=== PATIENT | male | born 1975 | race Caucasian/White ===

== ENCOUNTER 2017-11-05 21:21 | Emergency (ER) | payer OTHER, SELFPAY ==
[2017-11-05 21:22] VITALS: BP 164/102; PULSE 104; RESP 18; TEMP 36.5; O2SAT 99; BMI 34.2
--- NOTE | 2017-11-05 21:36 | CT_ITS ---
STUDY: CT ABDOMEN AND PELVIS WITH CONTRAST REASON FOR EXAM: Male, 42 years old. Right lower quadrant pain RADIATION DOSAGE (If Supplied By Facility): CTDIvol = ( 16.85 ) mGy, DLP = ( 1318.49 ) mGycm TECHNIQUE: Transaxial images were obtained from the dome of the diaphragm to the symphysis pubis without oral contrast. 100ML ml of Isovue 300 contrast was administered. Sagittal and coronal images were reconstructed. Individualized dose optimization techniques were used for this CT. COMPARISON: None. FINDINGS: The visualized lung bases are unremarkable. The visualized portions of the heart are within normal limits. Normal liver. Contracted gallbladder. No significant dilatation of the extrahepatic biliary system. Normal spleen. Normal pancreas. Normal bilateral adrenal glands. Normal right kidney. Normal left kidney. Small hiatal hernia. Normal small intestine. Normal colon. The appendix is visualized and appears normal. Normal abdominal aorta. Normal inferior vena cava. Normal retroperitoneum. Nonspecific mesenteric nodes up to 1.2 cm. Normal urinary bladder. Small fatty umbilical hernia of the abdominal wall. Normal osseous structures. CT/Abdomen/Pelvis WITH Contrast IMPRESSION: Normal appendix. Nonspecific mesenteric nodes up to 1.2 cm. Small hiatal hernia. Electronically Signed: Wes Varma DO at 23:51 EDT Tel [phone], Service support ,
--- NOTE | 2017-11-05 21:45 | ED.DCSUM_ITS ---
- ER Visit Summary Date of Service: 11/05/17 Chief Complaint: Abdominal pain History of Present Illness: The patient is a [address] Mcgregor. He reports he has right lower quadrant abdominal pain began yesterday and is gradually gotten worse. It is a sharp pain that is 7 out of 10 at worst and 510 currently. Is worsened by movement or coughing. Is relieved by nothing. He reports he has had a normal appetite. No nausea, vomiting, diarrhea. His last bowel was today. He has had no melena or hematochezia. No dysuria or frequency. No fever or chills. Physical Examination: Vitals: Stable. Afebrile. General: Well-nourished and well-developed. Head: Normocephalic atraumatic. Neck: Supple, no lymphadenopathy. No JVD. Nontender. Cardiovascular: Regular rate and rhythm. No murmurs. Respiratory: No respiratory distress. Clear to auscultation bilaterally. Abdominal: Soft, moderate tenderness palpation in the right lower quadrant, nondistended, normal bowel sounds. No guarding, rebound, or peritoneal signs. Back: Nontender. Extremities: Nontender, no edema. Skin: Normal color, no rash. Neurologic: Alert and oriented ?3. Cranial nerves II through XII are intact. Normal strength and sensation. Psych: Normal affect. Test Results: CBC is remarkable for segment neutrophils of 71. Chem-7 is more for glucose 118. UA is normal. CT the abdomen pelvis. IV contrast shows normal appendix and nonspecific mesenteric adenitis. Emergency Department Course and Treatment: Patient had an IV placed. He is given a liter of normal saline. He refused pain or nausea medications. Treatment Plan: Patient be discharged symptomatic care. Instructed follow-up his primary care physician in 3-5 days not improving. Disposition: To home in improved and stable condition. Impression: 1. Mesenteric adenitis. This note was generated with [employer] dictation software. It may contain incorrect words, spelling, and punctuation that were not noted in review of the chart prior to signing ED Disposition - Plan for ED Patient: Chief Complaint: Abd Pain Instructions: ED Adenitis Mesenteric Referrals: Jerrod Mcgregor MD [Primary Care Provider] - 3-5 Days if not improving
[2017-11-05] MEDS: 0.9% Normal Saline 1,000 ML 1000 ML IV (22:05)
[2017-11-05 22:15] LABS: Bacteria 0 SEEN /hpf (None Seen); Mucous, Urine 0 SEEN /hpf (<or=2+); Red Blood Cells-Urine 0 SEEN /hpf (0-5); Squamous Epithelial Cells - UA 0 SEEN /hpf (0-5); White Blood Cells 0 SEEN /hpf (0-5)
[2017-11-05 22:22] LABS: Color, Urine Yellow (Yellow); Glucose, Dipstick Normal (Normal); Ketone-Dipstick Negative (Negative); Leukocyte Esterase-Dipstick Negative /ul (Negative); Nitrite-Dipstick Negative (Negative); Occult Blood-Urine Negative /ul (Negative); Protein-Dipstick Negative (Negative); Urine Bilirubin Dipstick Negative (Negative); Urine Clarity Clear (Clear); Urine Urobilinogen Normal (Normal)
[2017-11-05 22:30] LABS: Anion Gap 7 (5-15); BUN 7 mg/dL (7-18); Calcium,Total 8.5 mg/dL (8.5-10.1); Chloride 104 mmol/L (98-107); EST Glomerular Filtration Rate 88 mL/min (>60); Est Glom Filt Rate - Afr Amer 106 mL/min (>60); Estimated Creatinine Clearance 101.39 ml/min; Glucose 118 mg/dL (74-106); Potassium 4.1 mmol/L (3.5-5.1); Sodium Level 141 mmol/L (136-145)
[2017-11-05 22:34] LABS: Absolute Lymphocyte Count 1.38 X10^3/ul (0.83-4.51); Absolute Neutrophil Count 4.7 X10^3/uL (2.0-7.7); Basophil# 0.05 X10^3/uL; Basophil% 0.8 % (0-1); Eosinophil# 0.09 X10^3/uL; Eosinophils% 1.4 % (0-5); Hematocrit 47.6 % (40-54); Hemoglobin 15.3 g/dl (13.0-16.5); Lymphocyte # 1.38 X10^3/ul (4.0); Lymphocyte % 21.1 % (19-41); Mean Corp Hgb Conc 32.1 g/gl (32-36); Mean Corpuscular Hgb 27.9 pg (27.0-32.0); Mean Corpuscular Volume 86.9 fL (80-94); Mean Platelet Vol. 9.4 fl (6.2-12.0); Monocyte# 0.37 X10^3/uL; Monocyte% 5.6 % (0-10); Neutrophil # 4.65 X10^3/uL (2.7-7.7); Neutrophil % 70.9 % (47-70); POSITIVE COUNT NO; POSITIVE DIFFERENTIAL NO; POSITIVE MORPHOLOGY NO; Platelet Count 183 K/mm3 (150-450); RBC Distribution Width CV 13.6 % (11.6-14.6); RBC Distribution Width SD 43.3 fl (35.1-43.9); Red Blood Count 5.48 M/mm3 (4.6-6.2); White Blood Count 6.6 K/mm3 (4.4-11.0)
[2017-11-05 23:40] VITALS: BP 161/105; PULSE 90; RESP 14; O2SAT 99
--- NOTE | 2017-11-06 00:05 | ED.RN ---
PT GIVEN WRITTEN AND VERBAL DISCHARGE INSTRUCTIONS. PT VERBALIZES UNDERSTANDING AND DENIES ANY FURTHER QUESTIONS. PT IV D/C ANGIO INTACT AND COVERED WITH 2X2 GAUZE DRESSING. MINIMAL BLEEDING NOTED. MILD PRESSURE APPLIED TO SITE. PT DRESSES SELF AND AMBULATES OUT OF DEPT WITHOUT DIFFICULTY.
== END 2017-11-06 00:07 | disposition home or self-care (01) ==
PROVIDERS: Emergency Provider Emergency Medicine; Family Provider Family Medicine; PCP Family Medicine
DX: I88.0 Nonspecific mesenteric lymphadenitis (principal); I10 Essential (primary) hypertension
CPT/HCPCS: 74177; 80048; 81001; 85025; 96360; 99283; J7030; Q9967

== ENCOUNTER 2019-11-03 08:48 | Emergency (ER) | payer OTHER, SELFPAY ==
[2019-11-03 08:49] VITALS: BP 166/103; PULSE 106; RESP 18; TEMP 36.6; O2SAT 97; BMI 34.4
--- NOTE | 2019-11-03 08:57 | RAD_ITS ---
STUDY: X-RAY CHEST REASON FOR EXAM: Male, 44 years old. NON-PROD COUGH SINCE THURSDAY TECHNIQUE: PA and lateral views of the chest. COMPARISON: Comparison is made with prior examination dated July 23, 2017. FINDINGS: The lungs are clear and expanded. There is no demonstrated pleural abnormality. Normal size heart. Normal mediastinum and bib. Normal visualized pulmonary arteries. Normal visualized aortic arch and descending thoracic aorta. Normal visualized thoracic spine. Normal visualized ribs, clavicles, and shoulders. There is no demonstrated abnormality of the visualized soft tissue structures of the upper abdomen. RAD/Chest PA and Lateral IMPRESSION: Normal x-ray examination of the chest. Electronically Signed: Zaheer Dobson, at 9:47 EDT , Service support ,
--- NOTE | 2019-11-03 08:59 | ED.VIS.GEN ---
History of Present Illness Chief Complaint: Cold Sx Informant: Patient Onset: Days Context: Gradual Onset Timing: Continuous Current Severity: Moderate Maximum Severity: Moderate Narrative: The patient is a 44-year-old male with no significant medical history who presents to the emergency department with cough and cold symptoms. He states his symptoms began on Thursday. He states he had a mild cough. Since then, his cough is worsened. He has had some productive sputum. He is also had some pain with coughing. He denies any pain at rest. He does not think he is had fever or chills. He does admit to nasal drainage and facial pressure. Patient has no history of underlying lung disease. He smoked for 6 months after divorce, but has no long-term lung disease. He denies any recent travel. He is otherwise been in his normal state of health. Prior similar symptoms: No Recent Illness/Hospitalization: No Past Medical History - Allergies and Home Meds Allergies/Adverse Reactions: Allergies No Known Allergies Allergy (Verified 11/03/19 08:50) Primary Care Physician: Jerrod Mcgregor MD [Primary Care Provider] - Prior records reviewed: Yes Past Medical History: None Surgical History: no surgical history Smoking Status: Former smoker Review of Systems General: Denies: Chills, Fever, Sweats Eyes: Denies: Visual changes - bilaterally, Diplopia ENT: Reports: Rhinorrhea. Denies: Sore throat Cardiovascular: Denies: Chest pain, Palpitations Respiratory: Reports: Cough. Denies: Dyspnea, Dyspnea on exertion Gastrointestinal: Denies: Abdominal pain, Nausea, Vomiting, Diarrhea, Melena, Hematochezia Genitourinary: Denies: Dysuria, Hematuria, Frequency Musculoskeletal: Denies: Back pain, Extremity Pain Skin: Denies: Rash, Wounds Neurological: Denies: Headache, Weakness, Numbness Physical Exam Vital Signs/Narrative: Vital Signs Temp Pulse Resp BP Pulse Ox 11/03/19 08:49 98 F 106 H 18 166/103 H 97 Inital Vital Signs reviewed: Yes General: Well nourished, Well developed, No Acute Distress Head: Normocephalic, Atraumatic Eyes: Perrl, EOMI ENT: Moist mucous membranes, No rhinorrhea Neck: Supple, Nontender Cardiovascular: Regular rate, Regular rhythm, No murmurs Respiratory: No distress, Chest nontender, Wheezing Abdomen: Soft, Nontender, Nondistended, Normal bowel sounds Back: Nontender, Normal Inspection Extremities: Nontender, No edema Skin: Normal color, No rash Neurological: Alert, Oriented x3, Cranial nerves II-XII grossly intact, Normal Strength, Normal Sensation Psychological: Normal affect, Normal Mood Diagnostic/Tx/Re-eval Clinical Impression(s) from Imaging Studies Chest X-Ray 11/03/19 08:57 IMPRESSION: Normal x-ray examination of the chest. Electronically Signed: Zaheer Dobson, at 9:47 EDT , Service support , - Medical Decision Making The patient symptoms do seem most consistent with bronchitis. He is had no fever. He does have wheezing all lung barron. He was given nebulized breathing treatment with improvement of his aeration. Chest x-ray was obtained. There is no focal infiltrative process. At this point, given his duration of symptoms, productive sputum, I do feel that he would benefit from continued prednisone and azithromycin. The patient is comfortable with this plan of care and will be discharged home. Impression 1. Acute bronchitis ED Disposition - Plan for ED Patient: Instructions: BRONCHITIS, Antiobiotic Treatment (Adult) Prescriptions: Prednisone [Deltasone] 40 mg PO DAILY #10 tab Prescription Printed Albuterol Inhaler [Ventolin Hfa] 2 puff INHALATION Q4H PRN PRN #1 inhaler PRN Reason: Wheezing Prescription Printed Azithromycin [Zithromax Z-Quinton] 250 mg PO UD #1 box Prescription Printed Referrals: Jerrod Mcgregor MD [Primary Care Provider] -
[2019-11-03] MEDS: predniSONE 20 MG Tablet 60 MG PO (09:19)
[2019-11-03] MEDS: Ipratropium/Albuterol Sulfate 3 ML AMPUL.NEB INHALATION (09:36)
[2019-11-03 09:39] VITALS: PULSE 109; RESP 18; O2SAT 100
[2019-11-03 10:33] VITALS: BP 129/78; PULSE 71; RESP 15; TEMP 36.7; O2SAT 99
== END 2019-11-03 10:34 | disposition home or self-care (01) ==
LOC: ED 09:48
PROVIDERS: Emergency Provider Emergency Medicine; PCP Family Medicine
DX: J20.9 Acute bronchitis, unspecified (principal); Z87.891 Personal history of nicotine dependence
CPT/HCPCS: 71046; 94640; 99283

== ENCOUNTER 2023-10-21 14:03 | Emergency (ER) | payer OTHER, SELFPAY ==
[2023-10-21 14:04] VITALS: BP 142/107; PULSE 123; RESP 18; TEMP 36.4; O2SAT 100
[2023-10-21 14:09] VITALS: BMI 33.4
--- NOTE | 2023-10-21 14:18 | CT_ITS ---
STUDY: CT ABDOMEN AND PELVIS WITHOUT CONTRAST REASON FOR EXAM: Male, 48 years old. Left flank pain RADIATION DOSAGE (If Supplied By Facility): CTDIvol = ( 18.94 ) mGy, DLP = ( 988.73 ) mGycm TECHNIQUE: Transaxial images were obtained from the dome of the diaphragm to the symphysis pubis without oral contrast, and without intravenous contrast. Sagittal and coronal images were reconstructed. Individualized dose optimization techniques were used for this CT. COMPARISON: Comparison is made with prior study of November 05, 2017. FINDINGS: The visualized lung bases are unremarkable. The visualized portions of the heart are within normal limits. There is decreased attenuation of the liver consistent with steatosis. Normal gallbladder and extrahepatic biliary system. Normal spleen. Normal pancreas. Normal bilateral adrenal glands. Normal right kidney. Normal left kidney. Normal visualized stomach. Normal small intestine. There are scattered colonic diverticula consistent with diverticulosis. The appendix is visualized and appears normal. Small lymph nodes are seen in the mesenteric fat in the right lower quadrant suggestive of mesenteric adenitis. Normal abdominal aorta. Normal inferior vena cava. Normal retroperitoneum. Mild degree of bladder wall thickening. There is a small umbilical hernia containing fat. Small bilateral inguinal hernias containing fat. There are mild degenerative changes of the visualized lumbar spine. Loss of the normal lumbar lordosis. CT/Abdomen/Pelvis without Cont IMPRESSION: No evidence of a ureteral obstruction. Small lymph nodes are seen in the mesenteric fat in the right lower quadrant is suggestive of mesenteric adenitis. Fatty infiltration of the liver. Small umbilical hernia containing fat as well as small bilateral inguinal hernias. Mild degree of gallbladder wall thickening. Electronically Signed: Zaheer Dobson MD at 14:53 EST ,
--- NOTE | 2023-10-21 14:19 | EX.ED.DYSGE1 ---
HPI History of Present Illness Chief Complaint: Back Informant: patient Onset/Context/Timing Onset: Today Narrative Narrative: Patient reports waking this morning with severe pain in his left lower back. He states he felt well when he went to bed last night. He states he has been working out for the past month but did not injure himself. He has no history of back problems. He did take 800 mg of ibuprofen 2 hours ago with no relief. Pain does radiate down to distal left thigh. No paresthesias. No problems with bowel or bladder control. [facility] Medical History GERD (gastroesophageal reflux disease) Hypertension Pancolitis Type 2 diabetes mellitus with hyperglycemia Ulcerative colitis Home Medications lisinopril 10 mg tablet (Zestril) 10 mg PO DAILY 01/06/17 [History Last Taken 11/03/19] albuterol sulfate 90 mcg/actuation aerosol inhaler 2 puff inhalation Q4H PRN PRN Wheezing ##1 11/03/19 [Rx Last Taken Unknown] azithromycin 250 mg tablet 250 mg PO UD ##1 11/03/19 [Rx Last Taken Unknown] prednisone 20 mg tablet 40 mg (2 x 20 mg) PO DAILY #10 tabs 11/03/19 [Rx Last Taken Unknown] amlodipine 5 mg tablet 5 mg PO DAILY 11/15/21 [History Last Taken Unknown] metformin 500 mg tablet 500 mg PO BID 11/15/21 [History Last Taken Unknown] omeprazole 20 mg capsule,delayed release 20 mg PO BID 11/15/21 [History Last Taken Unknown] sitagliptin phosphate 100 mg tablet 100 mg PO DAILY 11/15/21 [History Last Taken Unknown] cyclobenzaprine 10 mg tablet 10 mg PO TID PRN Muscle Spasm #20 TABLETS 10/21/23 [Rx Last Taken Unknown] hydrocodone-acetaminophen 5-325mg 5mg-325mg 1 tab PO Q6H PRN PRN Pain 3 days #10 TABLETS 10/21/23 [Rx Last Taken Unknown] naproxen 500 mg tablet (Naprosyn) 500 mg PO BID PRN pain #20 tabs 10/21/23 [Rx Last Taken Unknown] Allergy/AdvReac Type Severity Reaction Status Date / Time No Known Allergies Allergy Verified 10/21/23 14:05 Social History Smoking Status: Former smoker ROS ROS ED Constitutional Constitutional ED: Denies chills or fever(s) Eyes Eyes: Denies discharge from eye(s) ENT ENT ED: Denies discharge from eye(s), rhinorrhea or sore throat Cardiovascular Cardiovascular: Denies chest pain or palpitations Respiratory/Chest Respiratory/Chest: Denies cough or dyspnea Gastrointestinal Gastrointestinal: Denies abdominal pain, nausea or vomiting Genitourinary Genitourinary ED: Denies dysuria Musculoskeletal Musculoskeletal: Reports back pain; Denies extremity pain Integumentary Denies Abrasions or rash Neurologic Neurologic: Denies headache(s), paresthesias or weakness Psychiatric Psychiatric: Denies anxiety or depression Allergic/Immunologic Allergic/Immunologic ED: Denies lip swelling or urticaria EXAM Physical Exam Const Vital Signs: 10/21/23 14:04 Temperature 97.6 F L Temperature Source Temporal Pulse Rate 123 H Respiratory Rate 18 Blood Pressure 142/107 H Blood Pressure Mean 118 Pulse Ox 100 Oxygen Delivery Method Room Air Positive well nourished and well developed General Appearance ED: well developed HEENT Reports moist mucous membranes Eyes EOMs intact bilaterally Chest Wall inspection of chest normal and palpation of chest normal Resp normal respiratory effort and clear to auscultation bilaterally Cardio regular rhythm Rate: tachycardic GI non-tender Palpation: soft; Negative for mass Back/Spine Back/Spine Narrative: Tenderness in the left lumbar paraspinal muscles. No erythema or skin changes. Extremity normal to inspection Neuro oriented x3 and no sensory deficits noted Neuro Narrative: Good strength and sensation in lower extremities. Psych mental status grossly normal Skin no rashes or lesions noted MDM MDM MDM Narrative Medical decision making narrative: Lidoderm patch to be applied to the left paraspinal region. Patient did drive himself and states he does not have another ride home. Obtain a CT flank to evaluate for any renal abnormality, as patient has no history of back pain and had sudden onset. He does appear to have reproducible pain. If this is negative we will plan on analgesics and close follow-up. Radiography Diagnostic Testing: Clinical Impression(s) from Imaging Studies Abdomen/Pelvis CT 10/21/23 14:18 IMPRESSION: No evidence of a ureteral obstruction. Small lymph nodes are seen in the mesenteric fat in the right lower quadrant is suggestive of mesenteric adenitis. Fatty infiltration of the liver. Small umbilical hernia containing fat as well as small bilateral inguinal hernias. Mild degree of gallbladder wall thickening. Electronically Signed: Zaheer Dobson MD at 14:53 EST , Treatment and Re-Evaluation :: CT scan of the flank reveals no evidence of ureteral abnormality. Small lymph nodes are noted in the mesenteric fat. He does have some degenerative changes of the spine and loss of lumbar lordosis. This was discussed with the patient and is consistent with spasm. He will be given prescriptions for naproxen, [place], and Flexeril. 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 Return instructions were provided. Discharge Plan Triage Chief Complaint: Back ED Provider: Paige Florez Dx/Rx/DC Orders Clinical Impression: Lumbar strain, Muscle spasm Instructions: ED Back Spasm, No Trauma, ED Back and Neck Pain, General Prescriptions: New naproxen [Naprosyn] 500 mg tablet 500 mg PO BID PRN (Reason: pain) Qty: 20 0RF hydrocodone-acetaminophen 5-325 mg tablet 1 tab PO Q6H PRN PRN (Reason: Pain) 3 Days Qty: 10 0RF cyclobenzaprine 10 mg tablet 10 mg PO TID PRN (Reason: Muscle Spasm) Qty: 20 0RF No Action metformin 500 mg tablet 500 mg PO BID sitagliptin phosphate 100 mg tablet 100 mg PO DAILY amlodipine 5 mg tablet 5 mg PO DAILY omeprazole 20 mg capsule,delayed release(DR/EC) 20 mg PO BID lisinopril [Zestril] 10 MG tablet 10 mg PO DAILY azithromycin 250 MG tablet 250 mg PO UD Qty: 1 0RF Rx Instructions: TAKE 2 TABLETS 1ST DAY THEN 1 TABLET DAILY FOR NEXT 4 DAYS. prednisone 20 MG tablet 40 mg PO DAILY Qty: 10 0RF Rx Instructions: With food albuterol sulfate 1 INHALER inhaler 2 puff inhalation Q4H PRN PRN (Reason: Wheezing) Qty: 1 0RF Primary Care Provider: Jerrod Mcgregor Referrals: Jerrod Mcgregor MD [Primary Care Provider] - 1-2 Weeks Disposition Disposition: Home, Self Care
[2023-10-21] MEDS: Lidocaine 5% Patch 1 PATCH TOPICAL (14:46)
[2023-10-21 15:27] VITALS: BP 154/95; PULSE 76; RESP 16; TEMP 36.4; O2SAT 99
--- OUTSIDE RECORDS SUMMARY | 2023-10-22 00:04 | XMS RPT_ITS | CCD ---
Author Name Unknown Address [address] [place] [address] Organization [facility] Care Team Providers Care Manager Continuous Improvement Name Role Phone William Mcgregor MD Primary Care Provider Delmy Mckoy PA-C Primary Care Provider [phone] Delmy MCKOY Referring Unavailable Delmy MCKOY Primary Care Unavailable Delmy MCKOY Attending Unavailable WILLIAM MCGREGOR Primary Care Unavailable NATY HOUSTON Attending Unavailable WILLIAM MCGREGOR Primary Care Unavailable Allergies Allergy Classification Reported Allergen(s) Allergy Type Date of Onset Reaction(s) Facility (15 sources) Lisinopril; Translations: [LISINOPRIL] Drug Allergy 01-25-2020 [facility] Work Phone: Medications Current Medications Medication Drug Class(es) Dates Sig (Normalized) Sig (Original) predniSONE 20 mg oral tablet (2 sources) Start: 10-10-2022 End: 10-15-2022 take 2 tablets by mouth once daily predniSONE (DELTASONE) 20 mg tablet Indications: Diarrhea, unspecified type , History of colitis Take 2 tablets by mouth once daily for 5 days. 10 tablet 0 10/10/2022 10/15/2022 Active Completed/Discontinued Medications Medication Drug Class(es) Dates Sig (Normalized) Sig (Original) amLODIPine 10 mg oral tablet (16 sources) Dihydropyridine Calcium Channel Sergio Start: 06-09-2023 End: 10-08-2023 take 1 tablet by mouth once daily amLODIPine (NORVASC) 10 mg tablet Indications: Hypertension, unspecified type Take 1 tablet by mouth once daily. 90 tablet 1 10/08/2023 Active Problems Active Problems Problem Classification Problem Date Documented Da te Episodic/Chronic Abdominal hernia (2 sources) Umbilical hernia; Translations: [Umbilical hernia without obstruction or gangrene] Episodic Adjustment disorders (1 source) Adjustment disorder with mixed anxiety and depressed mood; Translations: [Adjustment disorder with mixed anxiety and depressed mood] 10-08-2023 Chronic Alcohol-related disorders (3 sources) Acute alcoholic liver disease; Translations: [Alcoholic hepatitis without ascites] Chronic Deficiency and other anemia (1 source) Iron deficiency anemia due to blood loss; Translations: [Iron deficiency anemia secondary to blood loss (chronic)] 10-08-2023 Chronic Deficiency and other anemia (1 source) Iron deficiency anemia secondary to blood loss (chronic); Translations: [Iron deficiency anemia due to chronic blood loss] Onset: 9 Chronic Diabetes mellitus with complications (20 sources) Type 2 diabetes mellitus; Translations: [Type 2 diabetes mellitus with hyperglycemia] Onset: 9 Chronic Diabetes mellitus without complication (1 source) Type 2 diabetes mellitus without complication; Translations: [Type 2 diabetes mellitus without complications] 10-08-2023 Chronic Disorders of lipid metabolism (2 sources) Hypertriglyceridemia; Translations: [Pure hyperglyceridemia] Onset: 3 06-09-2023 Chronic Esophageal disorders (20 sources) Gastroesophageal reflux disease; Translations: [Gastro-esophageal reflux disease without esophagitis] Onset: 7 09-29-2016 Chronic Essential hypertension (19 sources) Hypertensive disorder; Translations: [Essential (primary) hypertension] Onset: 3 11-02-2018 Chronic Other aftercare (1 source) Drug therapy finding; Translations: [Other regional intermodal truck driver (current) drug therapy] Episodic Other gastrointestinal disorders (2 sources) Diarrhea; Translations: [Diarrhea, unspecified] Episodic Other gastrointestinal disorders (2 sources) H/O: colitis; Translations: [Personal history of other diseases of the digestive system] Episodic Other liver diseases (2 sources) Elevated liver enzymes level; Translations: [Abnormal levels of other serum enzymes] Episodic Other non-traumatic joint disorders (1 source) Swollen ankle region; Translations: [Effusion, right ankle] 10-08-2023 Episodic Other non-traumatic joint disorders (1 source) Effusion, right ankle; Translations: [Swollen ankles] Onset: 4 Episodic Other non-traumatic joint disorders (1 source) Effusion, left ankle; Translations: [Swollen ankles] Onset: 4 Episodic Other screening for suspected conditions (not mental disorders or infectious disease) (4 sources) Patient encounter status; Translations: [Encounter for screening for eye and ear disorders] Onset: 4 10-08-2023 Episodic Regional enteritis and ulcerative colitis (20 sources) Ulcerative pancolitis; Translations: [Ulcerative (chronic) pancolitis without complications] Onset: 9 11-02-2018 Chronic Past or Other Problems Problem Classification Problem Date Documented Da te Episodic/Chronic Abdominal pain (16 sources) Indigestion; Translations: [Epigastric pain] Onset: 09-15-2017 09-15-2017 Episodic Deficiency and other anemia (14 sources) Anemia; Translations: [Anemia, unspecified] Onset: 05-03-2018 11-02-2018 Episodic Other gastrointestinal disorders (6 sources) Alteration in bowel elimination; Translations: [Change in bowel habit] Onset: 09-15-2017 09-15-2017 Episodic Other gastrointestinal disorders (8 sources) Altered bowel function; Translations: [Change in bowel habit] Onset: 09-15-2017 09-15-2017 Episodic Other liver diseases (1 source) Abnormal levels of other serum enzymes; Translations: [Elevated liver enzymes] Onset: 06-09-2023 Episodic Results Test Name Value Interpretation Reference Range Facil ity Vital Signs Date Time Vital Sign Value Performing Clinician Michi busby 10-08-2023 13:33-0500 Diastolic blood pressure 100 mm[Hg] NA Mckoy PA-C Work Phone: [facility] 10-08-2023 13:33-0500 Heart rate 119 /min NA Mckoy PA-C Work Phone: [facility] 10-08-2023 13:33-0500 Systolic blood pressure 158 mm[Hg] NA Mckoy PA-C Work Phone: [facility] 10-08-2023 13:21-0500 Body weight 104.78 kg NA Mckoy PA-C Work Phone: [facility] 10-08-2023 13:21-0500 Respiratory rate 16 /min NA Mckoy PA-C Work Phone: [facility] 02-15-2024 13:21-0500 SaO2% (BldA) [Mass fraction] 98 % PORTIA Mckoy PA-C Work Phone: [facility] 06-09-2023 15:59-0400 Diastolic blood pressure 109 mm[Hg] Naty Haagen STUNNER ANIMAL.POSSUM TRAPPER Work Phone: [facility] 06-09-2023 15:59-0400 Heart rate 104 /min Naty Haagen STUNNER ANIMAL.POSSUM TRAPPER Work Phone: [facility] 06-09-2023 15:59-0400 Systolic blood pressure 160 mm[Hg] Naty Haagen STUNNER ANIMAL.POSSUM TRAPPER Work Phone: [facility] 06-09-2023 15:18-0400 Respiratory rate 16 /min Naty Haagen STUNNER ANIMAL.POSSUM TRAPPER Work Phone: [facility] 06-09-2023 15:18-0400 SaO2% (BldA) [Mass fraction] 98 % Naty Haagen STUNNER ANIMAL.POSSUM TRAPPER Work Phone: [facility] 10-10-2022 11:41-0500 Body height 177.8 cm Ariadne Anderson STUNNER ANIMAL.POSSUM TRAPPER Work Phone: [facility] 10-10-2022 11:41-0500 Body temperature 97.2 [degF] Ariadne Anderson STUNNER ANIMAL.POSSUM TRAPPER Work Phone: [facility] 10-10-2022 11:41-0500 Body weight 104.33 kg Ariadne Anderson STUNNER ANIMAL.POSSUM TRAPPER Work Phone: [facility] 10-10-2022 11:41-0500 Heart rate 74 /min Ariadne Anderson STUNNER ANIMAL.POSSUM TRAPPER Work Phone: [facility] 10-10-2022 11:41-0500 Respiratory rate 16 /min Ariadne Anderson STUNNER ANIMAL.POSSUM TRAPPER Work Phone: [facility] 10-10-2022 11:41-0500 SaO2% (BldA) [Mass fraction] 98 % Ariadne Anderson STUNNER ANIMAL.POSSUM TRAPPER Work Phone: [facility] 06-18-2022 15:23-0400 Body height 177.8 cm Neida Trujillo MD Work Phone: [facility] 06-18-2022 15:23-0400 Body temperature 96.91 [degF] Neida Trujillo MD Work Phone: [facility] 06-18-2022 15:23-0400 Body weight 108.41 kg Neida Trujillo MD Work Phone: [facility] 06-18-2022 15:23-0400 Diastolic blood pressure 94 mm[Hg] Neida Trujillo MD Work Phone: [facility] 06-18-2022 15:23-0400 Heart rate 110 /min Neida Trujillo MD Work Phone: [facility] 06-18-2022 15:23-0400 Respiratory rate 14 /min Neida Trujillo MD Work Phone: [facility] 06-18-2022 15:23-0400 SaO2% (BldA) [Mass fraction] 96 % Neida Trujillo MD Work Phone: [facility] 06-18-2022 15:23-0400 Systolic blood pressure 156 mm[Hg] Neida Trujillo MD Work Phone: [facility] 06-12-2022 15:13-0400 Body weight 107.96 kg NA Mckoy PA-C Work Phone: [facility] 06-12-2022 15:13-0400 Diastolic blood pressure 86 mm[Hg] NA Mckoy PA-C Work Phone: [facility] 06-12-2022 15:13-0400 Heart rate 100 /min NA Mckoy PA-C Work Phone: [facility] 06-12-2022 15:13-0400 Respiratory rate 16 /min NA Mckoy PA-C Work Phone: [facility] 06-12-2022 15:13-0400 SaO2% (BldA) [Mass fraction] 99 % NA Mckoy PA-C Work Phone: [facility] 06-12-2022 15:13-0400 Systolic blood pressure 142 mm[Hg] NA Mckoy PA-C Work Phone: [facility] 11-25-2021 15:26-0400 Diastolic blood pressure 88 mm[Hg] Ariadne Anderson STUNNER ANIMAL.POSSUM TRAPPER Work Phone: [facility] 11-25-2021 15:26-0400 Systolic blood pressure 148 mm[Hg] Ariadne Anderson STUNNER ANIMAL.POSSUM TRAPPER Work Phone: [facility] 11-25-2021 15:08-0400 Body weight 103.47 kg Ariadne Anderson STUNNER ANIMAL.POSSUM TRAPPER Work Phone: [facility] 11-25-2021 15:08-0400 Heart rate 113 /min Ariadne Anderson STUNNER ANIMAL.POSSUM TRAPPER Work Phone: [facility] 11-21-2021 17:16-0400 Body weight 102.06 kg NA Mckoy PA-C Work Phone: [facility] 11-21-2021 17:16-0400 Diastolic blood pressure 78 mm[Hg] NA Mckoy PA-C Work Phone: [facility] 11-21-2021 17:16-0400 Heart rate 104 /min NA Mckoy PA-C Work Phone: [facility] 11-21-2021 17:16-0400 Respiratory rate 16 /min NA Mckoy PA-C Work Phone: [facility] 11-21-2021 17:16-0400 SaO2% (BldA) [Mass fraction] 97 % NA Mckoy PA-C Work Phone: [facility] 11-21-2021 17:16-0400 Systolic blood pressure 136 mm[Hg] NA Mckoy PA-C Work Phone: [facility] Encounters Encounter Date Encounter Type Care Provider Facility Start: 10-14-2023 Telephone encounter Delmy Dacosta Mckoy PA-C Work Phone: [facility] Procedures Date Procedure Procedure Detail Performing Clinician Start: 12-14-2018 Adult depression scr eening assessment NA Mckoy PA-C Work Phone: Start: 10-29-2018 Jose Mckoy PA-C Work Phone: Plan of Treatment Date Care Activity Detail Author Start: 2037 Hepatitis B Vaccine (1 of 3 - Risk 3-dose series) Hepatitis B Vaccine (1 of 3 - Risk 3-dose series) [facility] Start: 10-08-2024 Annual PCP Team Systems Analyst [employer] Disease Visit Annual PCP Team Chronic Disease Visit [facility] Start: 10-08-2024 Diabetic foot examination Diabetic F oot Exam [facility] Start: 10-08-2024 Hepatitis B surface antibody level LDL Cholesterol [facility] Start: 06-09-2024 Annual PCP Team Systems Analyst [employer] Disease Visit Annual PCP Team Chronic Disease Visit [facility] Start: 06-09-2024 Covid-19 Vaccine (#1) Covid-19 Vacci ne (#1) [facility] Immunizations Immunization Date Immunization Notes Care Provider Fa clarence 08-31-2017 influenza virus vacc ine, unspecified formulation Lila Ruano [facility] Work Phone: [facility] Payers Date Payer Category Payer Unknown [id number] 2021 Private Health Insurance JAVAN WOODWARD OAP [id number] 2021-Present [phone] [facility] [id number] [place] [address] Open Access [id number] 2021 Private Health Insurance [id number] 2021 Private Health Insurance [id number] Social History Date Type Detail Facility Start: 03-15-2013 Tobacco smoking stat us AKIS Never smoked tobacco [facility] Start: 03-15-2013 Tobacco use and exposure Smoke less tobacco non-user [facility] Start: 11-21-2021 End: 10-08-2023 Alcohol intake Current drinker of alcohol (finding) [facility] Start: 04-11-2013 History SDOH Alcohol Comment none during the week, 12 pack on the weekends. [facility] Start: 1975 Sex Assigned At Not on file C [facility] Start: 10-29-2021 End: 06-18-2022 Exposure to SARS-CoV-2 (event) Not sure [facility] Start: 10-10-2022 End: 06-09-2023 History of Social function [place] [facility] Start: 10-10-2022 End: 06-09-2023 Tobacco use panel [facility] Adult Depression Scr eening Assessment 0 [facility] Are you now , , , , never or living with a partner? Refused [facility] How hard is it for y ou to pay for the very basics like food, housing, medical care, and heating Hard [facility] (I/We) worried wheth er (my/our) food would run out before (I/we) got money to buy more. DK or Refused [facility] In the past 12 month s, was there a time when you were not able to pay the mortgage or rent on time? No [facility] Medical Equipment Procedure Code Equipment Code Equipment Origin al Text Equipment Identifier Dates Test blood sugar (s) 1 times daily. Dx: Type 2 DM - Uncontrolled E11.65 Insulin: No Start: 11-30-2020 End: 10-08-2023 Clinical Notes 11-01-2018 to 10-15-2023 Telephone Encounter - Delmy Mckoy PA-C - 10/15/2023 11:38 AM ESTTelephone Encounter - Rachna Welsh RN - 10/15/2023 10:18 AM ESTPatient InstructionsPatient Instructions Note Date & Type Note Facility 10-15-2023 Miscellaneous Notes One month follow up on med change The following approved medication requests have been transmitted electronically. Requested Prescriptions Signed Prescriptions Disp Refills venlafaxine ER (EFFEXOR XR) 75 mg 24 hr capsule 30 capsule 3 Sig: Take 1 capsule by mouth once daily. Authorizing Provider: Delmy MCKOY PA-C Patient returns call and message below reviewed. Patient is willing to try the venlafaxine. Not certain which dose to pend. Patient asking for 1 month supply to [facility] and 90 day supply to [facility] for Insurance to cover it. Rachna Welsh RN This fax was given to the prescribing provider. Let him know. Madeline solano to try venlafexine which is the closest [facility] from [facility] pharmacy calling in regards to pt's recent prescription sent in for Desvenlafaxine ER (Pristiq). Myla states insurance requesting an alternative medication unless there is a special circumstance of why pt needs to take this med. A fax was sent to provider on 10/08. Alternatives per pt's insurance company are: Venlafaxine HCL tablet Venlafaxine HCL ER capsule Buproprion HCL XL tablet If okay with alternative, please escript new prescription in or call [phone] with any questions. Reference # is [id number]. documented in this encounter [facility] 10-15-2023 Miscellaneous Notes Patient calls and message and orders reviewed. Rachna Welsh RN Left vm for patient to return call to nurse for provider's message. Please make sure he sees my chart message and lab orders for 3 months. Telephone on 10/14/23 HEPATIC FUNCTION PNL HGB A1C Thanks, Joel Guamanon, PA-C documented in this encounter [facility] 10-08-2023 Miscellaneous Notes Behavioral Health Social Work Progress Note Patient identified for [facility] from: PCP Reason for referral: [facility] Assessment [facility] encounter type: Telephone Encounter Attempts to Outreach: 1 attempt Final Disposition: Unable to reach Patient Discharged?: No Patient reported that caregiver was able to meet their needs today?: N/A Phone call placed today that went to [facility]. Left my contact information and brief nature of call. Initial outreach also completed via [facility] sending list of in network providers with insurance. AUBREE Steiner October 08, 2023 documented in this encounter [facility] 10-08-2023 Note HNO ID: [id number] Author: Delmy MCKOY PA-C Service: ? Author Type: Physician Title One Reading Teacher Type: Progress Notes Filed: 10/11/2023 11:07 Note Text: 48 year old male with c/o swollen ankles Adopted son moved out last year leaving him alone Got depressed, stayed home and drank heavily Feet got swollen, hard to walk, weight up to 250 lbs Parents, grandparents, brother, aunts+ uncles all in last 10 years Went back to work, changed lifestyle and feels things got better. PHQ-9 10/08/2023 Score 5 Toes are tingly still. 3 weeks of not being his feet at all. Stopped alcohol, sodium/ salt, goes to the gym 1-2 hrs/day. Socializing. Feels dehydrated (drinks 1 gallon of water), mouth is dry Thirsty in the mornings Hypertension, unspecified type Current meds: Amlodipine 5mg daily Patient is compliant with meds Yes Monitors bp at home: No. If yes, readings: Denies side effects: No. Chest pain: No. Dyspnea: Yes. Edema: Yes. Palpitations: Yes. Syncope: Yes. Headache: Yes. Dizziness: Yes. Last 3 Encounter BP Readings: Date: BP: 10/08/2023 158/100[BP adin average[ 06/09/2023 160/109[ADIN BP[ 06/18/2022 156/94[Dr. Trujillo notified of blood pressure] Type 2 diabetes mellitus with complication, without long-term current use of insulin (hcc) Diabetes Mellitus Type 2: Current medications: Metformin 500mg twice a day with meal Taking medication as directed consistently? Yes Medication side effects: Medical Issues / Complications: hypertension ? neuropathy. Checking blood sugars at home? No. Ran out of home materials to Check Sugars. Watching diet? Yes, low sodium Physical Activity: Very active, gym every day Hypoglycemic spells? No Any visual disturbance? No, last eye doc in the summer Chest pain? No New numbness, tingling or loss of sensation? Yes Any recent foot problems, sores or rashes? No Any recent or sudden weight loss? Yes, states 10-20lbs in one month Change in urination? No. If yes: drinks 5-6 bottles of water Any recent illness? No (UC flare up in the summer time). Last eye exam: Summer time. Last foot exam: Today. HBA1C: Hemoglobin A1C (%) Date Value 11/08/2021 9.9 11/28/2020 9.6 08/18/2019 9.5 CMP: Glucose 286 11/08/2021 BUN 16 11/08/2021 Creatinine 0.82 11/08/2021 Sodium 133 11/08/2021 Potassium 3.8 11/08/2021 Chloride 96 11/08/2021 CO2 23 11/08/2021 Protein, Total 7.5 11/08/2021 Albumin 4.4 11/08/2021 Calcium 9.2 11/08/2021 Alkaline Phosphatase 79 11/08/2021 Bilirubin, Total 1.2 11/08/2021 AST 93 11/08/2021 ALT 295 11/08/2021 Last 2 Encounter Wt Readings: Date: Wt: 10/10/2022 104.3 kg (230 lb) 06/20/2022 108.4 kg (239 lb) Dyspepsia Gastroesophageal reflux disease without esophagitis Pancolitis (hcc) Current medications: Omeprazole 20mg daily AC Current symptoms: none. Last Mg level if on PPI chronically: 10/31/2018 Mg 2.1. Heartburn is controlled: No. Dysphagia: No. Bloody or black stools: No. Bowel changes: No. Has been very regular Last EGD and/or colonoscopy: 10/29/2018 Iron deficiency anemia due to chronic blood loss Component Latest Ref Rng AND Units 01/31/2021 11/08/2021 WBC 3.70 - 11.00 k/uL 6.60 11.79 (H) RBC 4.20 - 6.00 m/uL 6.50 (H) 6.06 (H) Hemoglobin 13.0 - 17.0 g/dL 14.6 14.3 Hematocrit 39.0 - 51.0 % 48.6 46.3 MCV 80.0 - 100.0 fL 74.8 (L) 76.4 (L) MCH 26.0 - 34.0 pg 22.5 (L) 23.6 (L) MCHC 30.5 - 36.0 g/dL 30.0 (L) 30.9 RDW-CV 11.5 - 15.0 % 18.6 (H) 18.3 (H) Platelet Count 150 - 400 k/uL 194 195 MPV 9.0 - 12.7 fL 10.4 9.9 Neut% % 72.9 80.9 Abs Neut (ANC) 1.45 - 7.50 k/uL 4.81 9.53 (H) Lymph% % 17.9 10.5 Abs Lymph 1.00 - 4.00 k/uL 1.18 1.24 Meade% % 6.5 6.5 Abs Meade <0.87 k/uL 0.43 0.77 Eosin% % 1.5 0.5 Abs Eosin <0.46 k/uL 0.10 0.06 Baso% % 1.2 0.8 Abs Baso <0.11 k/uL 0.08 0.09 Immature Gran % % 0.8 IMMATURE GRANS (ABS) <0.10 k/uL 0.10 (H) NRBC /100 WBC 0.0 Absolute nRBC <0.01 k/uL <0.01 <0.01 DTYPE Auto Nucleated Reds 0 /100 WBC 0.0 Diff Type Auto Diff HISTORIES FAMILY HISTORY Adopted: Yes PAST MEDICAL HISTORY Diagnosis Date GERD (gastroesophageal reflux disease) htn Hyperglycemia Ulcerative colitis (HCC) PAST SURGICAL HISTORY Procedure Laterality Date EXTRACTION, ERUPTED TOOTH OR EXPOSED ROOT (ELEVATION AND/OR FORCEPS REMOVAL) Bilateral Over 20 years ago NONE Social History Tobacco Use Smoking status: Never Smokeless tobacco: Never Vaping Use Vaping Use: Never used Substance Use Topics Alcohol use: Yes Comment: none during the week, 12 pack on the weekends. Drug use: No ACTIVE PROBLEM LIST Htn (Hypertension) Gerd (Gastroesophageal Reflux Disease) Altered Bowel Habits Dyspepsia Anemia Type 2 Diabetes Mellitus With Complication, Without Long-Term Current Use of Insulin (Hcc) Pancolitis (Hcc) Current Outpatient Medications Medication Sig Dispense Refill amLODIPine (NORVASC) 10 mg tablet Take 1 tablet by padma (more content not included)... [facility] 10-08-2023 Instructions Delmy Mckoy PA-C - 10/08/2023 3:06 PM EST Desvenlafaxine: Patient drug information Access [employer] for additional drug information, tools, and databases. Copyright 0760-0463 [employer]. All rights reserved. (For additional information see Desvenlafaxine: Drug information ) You must carefully read the Consumer Information Use and Disclaimer below in order to understand and correctly use this information. Brand Names: [place] Khedezla [DSC]; Pristiq Brand Names: Adeel APO-Desvenlafaxine; Pristiq Warning Drugs like this one have raised the chance of suicidal thoughts or actions in children and young adults. The risk may be greater in people who have had these thoughts or actions in the past. All people who take this drug need to be watched closely. Call the doctor right away if signs like low mood (depression), nervousness, restlessness, grouchiness, panic attacks, or changes in mood or actions are new or worse. Call the doctor right away if any thoughts or actions of suicide occur. This drug is not approved for use in children. Talk with the doctor. What is this drug used for? It is used to treat low mood (depression). It may be given to you for other reasons. Talk with the doctor. What do I need to tell my doctor BEFORE I take this drug? If you are allergic to this drug; any part of this drug; or any other drugs, foods, or substances. Tell your doctor about the allergy and what signs you had. If you have narrow-angle glaucoma. If you are taking any of these drugs: Linezolid or methylene blue. If you have taken certain drugs for depression or Parkinson's disease in the last 14 days. This includes isocarboxazid, phenelzine, tranylcypromine, selegiline, or rasagiline. Very high blood pressure may happen. If you are taking another drug that has the same drug in it. If you are using another drug like this one. If you are not sure, ask your doctor or pharmacist. This is not a list of all drugs or health problems that interact with this drug. Tell your doctor and pharmacist about all of your drugs (prescription or OTC, natural products, vitamins) and health problems. You must check to make sure that it is safe for you to take this drug with all of your drugs and health problems. Do not start, stop, or change the dose of any drug without checking with your doctor. What are some things I need to know or do while I take this drug? Tell all of your health care providers that you take this drug. This includes your doctors, nurses, pharmacists, and dentists. It may take several months to see full effect. Avoid driving and doing other tasks or actions that call for you to be alert until you see how this drug affects you. To lower the chance of feeling dizzy or passing out, rise slowly if you have been sitting or lying down. Be careful going up and down stairs. Do not stop taking this drug all of a sudden without calling your doctor. You may have a greater risk of side effects. If you need to stop this drug, you will want to slowly stop it as ordered by your doctor. High blood pressure has happened with this drug. Have your blood pressure checked as you have been told by your doctor. Avoid drinking alcohol while taking this drug. Talk with your doctor before you use marijuana, other forms of cannabis, or prescription or OTC drugs that may slow your actions. This drug may raise the chance of bleeding. Sometimes, bleeding can be life-threatening. Talk with the doctor. Some people may have a higher chance of eye problems with this drug. Your doctor may want you to have an eye exam to see if you have a higher chance of these eye problems. Call your doctor right away if you have eye pain, change in eyesight, or swelling or redness in or around the eye. This drug can cause low sodium levels. Very low sodium levels can be life-threatening, leading to seizures, passing out, trouble breathing, or . This drug may affect certain lab tests. Tell all of your health care providers and lab workers that you take this drug. If you are 65 or older, use this drug with care. You could have more side effects. Tell your doctor if you are , plan on getting , or are breast-feeding. You will need to talk about the benefits and risks to you and the baby. Taking this drug in the third trimester of may lead to some health problems in the . Talk with the doctor. What are some side effects that I need to call my doctor about right away? WARNING/CAUTION: Even though it may be rare, some people may have very bad and sometimes deadly side effects when taking a drug. Tell your doctor or get medical help right away if you have any of the following signs or symptoms that may be related to a very bad side effect: Signs of an allergic reaction, like rash; hives; itching; red, swollen, blistered, or peeling skin with or without fever; wheezing; tightness in the chest or throat; trouble breathing, swallowing, or talking; unusual hoarseness; or swelling of the mouth, face, lips, tongue, or throat. Signs of low sodium levels like headache, trouble focusing, memory problems, feeling confused, weakness, seizures, or change in balance. Signs of bleeding like throwing up or coughing up blood; vomit that looks like coffee grounds; blood in the urine; black, red, or tarry stools; bleeding from the gums; abnormal vaginal bleeding; bruises without a cause or that get bigger; or bleeding you cannot stop. Signs of high blood pressure like very bad headache or dizziness, passing out, or change in eyesight. Signs of lung or breathing problems like shortness of breath or other trouble breathing, cough, or fever. Chest pain or pressure. Seizures. Feeling very tired or weak. Hallucinations (seeing or hearing things that are not there). Some men have had sexual problems when taking this drug. These include lowered interest in sex and not able to get an erection. Call your doctor right away if you have sexual problems when taking this drug. A severe and sometimes deadly problem called serotonin syndrome may happen. The risk may be greater if you also take certain other drugs. Call your doctor right away if you have agitation; change in balance; confusion; hallucinations; fever; fast or abnormal heartbeat; flushing; muscle twitching or stiffness; seizures; shivering or shaking; sweating a lot; severe diarrhea, upset stomach, or throwing up; or very bad headache. What are some other side effects of this drug? All drugs may cause side effects. However, many people have no side effects or only have minor side effects. Call your doctor or get medical help if any of these side effects or any other side effects bother you or do not go away: Feeling dizzy, sleepy, tired, or weak. Upset stomach or throwing up. Constipation. Dry mouth. Trouble sleeping. Not hungry. Sweating. Shakiness. You may see something that looks like the tablet in your stool. This is normal and not a cause for concern. If you have questions, talk with your doctor. These are not all of the side effects that may occur. If you have questions about side effects, call your doctor. Call your doctor for medical advice about side effects. You may report side effects to your national health agency. How is this drug best taken? Use this drug as ordered by your doctor. Read all information given to you. Follow all instructions closely. Take with or without food. Swallow whole with fluid. Do not chew, break, crush, or dissolve. Take this drug at the same time of day. Keep taking this drug as you have been told by your doctor or other health care provider, even if you feel well. What do I do if I miss a dose? Take a missed dose as soon as you think about it. If it is close to the time for your next dose, skip the missed dose and go back to your normal time. Do not take 2 doses at the same time or extra doses. How do I store and/or throw out this drug? Store at room temperature. Store in a dry place. Do not store in a bathroom. Keep all drugs in a safe place. Keep all drugs out of the reach of children and pets. Throw away unused or drugs. Do not flush down a toilet or pour down a drain unless you are told to do so. Check with your pharmacist if you have questions about the best way to throw out drugs. There may be drug take-back programs in your area. General drug facts If your symptoms or health problems do not get better or if they become worse, call your doctor. Do not share your drugs with others and do not take anyone else's drugs. Some drugs may have another patient information leaflet. If you have any questions about this drug, please talk with your doctor, nurse, pharmacist, or other health care provider. If you think there has been an overdose, call your poison control center or get medical care right away. Be ready to tell or show what was taken, how much, and when it happened. Last Reviewed [id number] Consumer Information Use and Disclaimer This information should not be used to decide whether or not to take this medicine or any other medicine. Only the healthcare provider has the knowledge and training to decide which medicines are right for a specific patient. This information does not endorse any medicine as safe, effective, or approved for treating any patient or health condition. This is only a brief summary of general information about this medicine. It does NOT include all information about the possible uses, directions, warnings, precautions, interactions, adverse effects, or risks that may apply to this medicine. This information is not specific medical advice and does not replace information you receive from the healthcare provider. You must talk with the healthcare provider for complete information about the risks and benefits of using this medicine. The use of this information is governed by the [employer] End User License Agreement, available at https://www.[employer]/en/s eileenutions/mobifriends/about/abdon. 2020 [employer]. and its affiliates and/or licensors. All rights reserved. Use of [employer] is subject to the Subscription and License Agreement. Topic 28393 Version 147.0 documented in this encounter [facility] 10-08-2023 History of Present illness Narrative 48 year old male with c/o swollen ankles Adopted son moved out last year leaving him alone Got depressed, stayed home and drank heavily Feet got swollen, hard to walk, weight up to 250 lbs Parents, grandparents, brother, aunts+ uncles all in last 10 years Went back to work, changed lifestyle and feels things got better. PHQ-9 10/08/2023 Score 5 Toes are tingly still. 3 weeks of not being his feet at all. Stopped alcohol, sodium/ salt, goes to the gym 1-2 hrs/day. Socializing. Feels dehydrated (drinks 1 gallon of water), mouth is dry Thirsty in the mornings Hypertension, unspecified type Current meds: Amlodipine 5mg daily Patient is compliant with meds Yes Monitors bp at home: No. If yes, readings: Denies side effects: No. Chest pain: No. Dyspnea: Yes. Edema: Yes. Palpitations: Yes. Syncope: Yes. Headache: Yes. Dizziness: Yes. Last 3 Encounter BP Readings: Date: BP: 10/08/2023 158/100[BP adin average[ 06/09/2023 160/109[ADIN BP[ 06/18/2022 156/94[Dr. Trujillo notified of blood pressure] Type 2 diabetes mellitus with complication, without long-term current use of insulin (hcc) Diabetes Mellitus Type 2: Current medications: Metformin 500mg twice a day with meal Taking medication as directed consistently? Yes Medication side effects: Medical Issues / Complications: hypertension ? neuropathy. Checking blood sugars at home? No. Ran out of home materials to Check Sugars. Watching diet? Yes, low sodium Physical Activity: Very active, gym every day Hypoglycemic spells? No Any visual disturbance? No, last eye doc in the summer Chest pain? No New numbness, tingling or loss of sensation? Yes Any recent foot problems, sores or rashes? No Any recent or sudden weight loss? Yes, states 10-20lbs in one month Change in urination? No. If yes: drinks 5-6 bottles of water Any recent illness? No (UC flare up in the summer time). Last eye exam: Summer time. Last foot exam: Today. HBA1C: Hemoglobin A1C (%) Date Value 11/08/2021 9.9 11/28/2020 9.6 08/18/2019 9.5 CMP: Glucose 286 11/08/2021 BUN 16 11/08/2021 Creatinine 0.82 11/08/2021 Sodium 133 11/08/2021 Potassium 3.8 11/08/2021 Chloride 96 11/08/2021 CO2 23 11/08/2021 Protein, Total 7.5 11/08/2021 Albumin 4.4 11/08/2021 Calcium 9.2 11/08/2021 Alkaline Phosphatase 79 11/08/2021 Bilirubin, Total 1.2 11/08/2021 AST 93 11/08/2021 ALT 295 11/08/2021 Last 2 Encounter Wt Readings: Date: Wt: 10/10/2022 104.3 kg (230 lb) 06/20/2022 108.4 kg (239 lb) Dyspepsia Gastroesophageal reflux disease without esophagitis Pancolitis (hcc) Current medications: Omeprazole 20mg daily AC Current symptoms: none. Last Mg level if on PPI chronically: 10/31/2018 Mg 2.1. Heartburn is controlled: No. Dysphagia: No. Bloody or black stools: No. Bowel changes: No. Has been very regular Last EGD and/or colonoscopy: 10/29/2018 Iron deficiency anemia due to chronic blood loss Component Latest Ref Rng & Units 01/31/2021 11/08/2021 WBC 3.70 - 11.00 k/uL 6.60 11.79 (H) RBC 4.20 - 6.00 m/uL 6.50 (H) 6.06 (H) Hemoglobin 13.0 - 17.0 g/dL 14.6 14.3 Hematocrit 39.0 - 51.0 % 48.6 46.3 MCV 80.0 - 100.0 fL 74.8 (L) 76.4 (L) MCH 26.0 - 34.0 pg 22.5 (L) 23.6 (L) MCHC 30.5 - 36.0 g/dL 30.0 (L) 30.9 RDW-CV 11.5 - 15.0 % 18.6 (H) 18.3 (H) Platelet Count 150 - 400 k/uL 194 195 MPV 9.0 - 12.7 fL 10.4 9.9 Neut% % 72.9 80.9 Abs Neut (ANC) 1.45 - 7.50 k/uL 4.81 9.53 (H) Lymph% % 17.9 10.5 Abs Lymph 1.00 - 4.00 k/uL 1.18 1.24 Meade% % 6.5 6.5 Abs Meade <0.87 k/uL 0.43 0.77 Eosin% % 1.5 0.5 Abs Eosin <0.46 k/uL 0.10 0.06 Baso% % 1.2 0.8 Abs Baso <0.11 k/uL 0.08 0.09 Immature Gran % % 0.8 IMMATURE GRANS (ABS) <0.10 k/uL 0.10 (H) NRBC /100 WBC 0.0 Absolute nRBC <0.01 k/uL <0.01 <0.01 DTYPE Auto Nucleated Reds 0 /100 WBC 0.0 Diff Type Auto Diff HISTORIES FAMILY HISTORY Adopted: Yes PAST MEDICAL HISTORY Diagnosis Date GERD (gastroesophageal reflux disease) htn Hyperglycemia Ulcerative colitis (HCC) PAST SURGICAL HISTORY Procedure Laterality Date EXTRACTION, ERUPTED TOOTH OR EXPOSED ROOT (ELEVATION AND/OR FORCEPS REMOVAL) Bilateral Over 20 years ago NONE Social History Tobacco Use Smoking status: Never Smokeless tobacco: Never Vaping Use Vaping Use: Never used Substance Use Topics Alcohol use: Yes Comment: none during the week, 12 pack on the weekends. Drug use: No ACTIVE PROBLEM LIST Htn (Hypertension) Gerd (Gastroesophageal Reflux Disease) Altered Bowel Habits Dyspepsia Anemia Type 2 Diabetes Mellitus With Complication, Without Long-Term Current Use of Insulin (Hcc) Pancolitis (Hcc) Current Outpatient Medications Medication Sig Dispense Refill amLODIPine (NORVASC) 10 mg tablet Take 1 tablet by mouth once daily. 90 tablet 1 metFORMIN (GLUCOPHAGE) 500 mg tablet Take 1 tablet by mouth two times a day with meals. . 180 tablet 1 omeprazole (PRILOSEC) 20 mg capsule Take 1 capsule by mouth two times a day. 1/2 hr before meal. 180 capsule 1 blood sugar diagnostic (BLOOD GLUCOSE TEST) test strip Test blood sugar(s) 1 times daily. Dx: Type 2 DM - Uncontrolled E11.65 Insulin: No 50 Strip 11 Lancets lancets Test blood sugar(s) 1 times daily. Dx: Type 2 DM - Uncontrolled E11.65 Insulin: No 100 Each 11 mometasone (ELOCON) 0.1 % cream Apply 1 application to affected area once daily. 45 g 0 No current facility-administered medications for this visit. Urine Albumin:Creatinine Ratio Never done BP Controlled (<130/80) Never done DTaP,Tdap,Td Vaccine(1 - Tdap) Never done Dilated Retinal Exam due on 01/12/2022 HbA1C due on 02/08/2022 Colorectal Cancer Screening due on 2022 LDL Cholesterol due on 11/08/2022 Diabetic Foot Exam due on 06/12/2023 Depression Assessment Never done EXAM: BP 158/100 (BP Site: Left Arm, BP Position: Sitting) Pulse 119 Resp 16 Wt 104.8 kg (231 lb) SpO2 98% BMI 33.15 kg/m Last 14 BP Last 14 Encounter BP Readings: Date: BP: 10/08/2023 158/100[BP adin average[ 06/09/2023 160/109[ADIN BP[ 06/18/2022 156/94[Dr. Trujillo notified of blood pressure[ 06/12/2022 142/86 11/25/2021 148/88 11/21/2021 136/78 11/08/2021 150/92 01/31/2021 128/82 11/30/2020 122/82 08/18/2019 118/82 04/19/2019 135/92 12/14/2018 108/80 11/15/2018 142/88 11/08/2018 145/96 Pleasant overweight adult male in no acute distress. Alert and oriented all spheres. Mood depressed, affect congruent, pleasant and cooperative, goal oriented, speech normal. No deficits to learning or comprehension. Skin warm, dry, pink to lips and nailbeds. Normal turgor. Respirations regular and unlabored. HEENT: NCAT. No scleral icterus or conjunctival injection. TM's clear. Nose and oropharynx free from injection or lesion. Oral membranes moist and pink. No cervical lymph nodes. Thyroid non-tender, no masses, or enlargement. Carotids pulses 2+/4+ without bruits. No JVD with HOB at 30 degrees. Chest is normal shape. Lungs are clear to all barron with good air exchange through out. HRRR without murmur or gallop. No lifts, heaves, or rubs. Abdomen: active bowel sounds throughout, soft, nontender, no masses or organomegaly. No CVAT. Extrem: no clubbing or cyanosis. Edema: none. Extremities are warm and pink with prompt capillary refill. Feet:Shoes and socks removed, No deformities, ulcers, calluses, normal distal pulses, and sensitive to 10 gm monofilament. Still complains of tingling. High arches, calluses on heels, pads of feet, toes. ASSESSMENT/PLAN: 1. Swollen ankles - ICD9: 729.81, ICD10: M25.471, M25.472 (primary diagnosis) Resoved with lifestyle changes 2. Hypertension, unspecified type - ICD9: 401.9, ICD10: I10 - Controlled - Continue current medications - Start losartan - Recommend home blood pressure monitoring, to bring results to next visit - Encouraged sodium restriction, DASH or Mediterranean diet - Recommend regular aerobic exercise - AMLODIPINE 10 MG TABLET - LOSARTAN 50 MG TABLET 3. Type 2 diabetes mellitus with complication, without long-term current use of insulin (HCC) - ICD9: 250.90, ICD10: E11.8 - Controlled - Continue current medications - ALBUMIN/CREAT RATIO RND UR - HGB A1C - COMP METABOLIC PANEL - LIPID PANEL BASIC 4. Dyspepsia - ICD9: 536.8, ICD10: R10.13 5. Gastroesophageal reflux disease without esophagitis - ICD9: 530.81, ICD10: K21.9 - Discussed lifestyle modifications including losing weight, limiting caffeine, no meals three hours before sleep, and head of bed elevation - Continue treatment with Prilosec 20 mg QD - COMP METABOLIC PANEL 6. Pancolitis (HCC) - ICD9: 556.6, ICD10: K51.00 Stable, no recent issues 7. Iron deficiency anemia due to chronic blood loss - ICD9: 280.0, ICD10: D50.0 Recheck CBC 8. Screening for diabetic retinopathy - ICD9: V80.2, ICD10: Z13.5 screening - CONSULT TO OPHTHALMOLOGY 9. Controlled type 2 diabetes mellitus without complication, without long-term current use of insulin (HCC) - ICD9: 250.00, ICD10: E11.9 - Control undetermined, due for labs - Continue current medications - BLOOD SUGAR DIAGNOSTIC STRIPS - LANCETS 10. Poorly control type 2 diabetes mellitus (HCC) - ICD9: 250.00, ICD10: E11.65 - Control undetermined, due for labs - Continue current medications - METFORMIN 500 MG TABLET - COMP METABOLIC PANEL 11. GERD without esophagitis - ICD9: 530.81, ICD10: K21.9 - Discussed lifestyle modifications including losing weight, limiting caffeine, no meals three hours before sleep, and head of bed elevation - OMEPRAZOLE 20 MG CAPSULE,DELAYED RELEASE 12. High serum high density lipoprotein (HDL) - ICD9: 790.99, ICD10: R79.89 Uncertain control: recheck lab - LIPID PANEL BASIC 13. Adjustment reaction with anxiety and depression - ICD9: 309.28, ICD10: F43.23 Low suicidal risk at this time Seems to be stable, doing better. Suicide plan in place: agrees to call Crisis Line if in trouble and also me. - CONSULT TO PRIMARY CARE BEHAVIORAL HEALTH ADULT Some of this note may have been copied and pasted for the purpose of history context and comparison and has been adjusted for changes in prior data. Delmy Mckoy PA-C documented in this encounter [facility] 06-09-2023 Note HNO ID: [id number] Author: Naty Houston APRN.POSSUM TRAPPER Service: ? Author Type: Nurse Practitioner Type: Progress Notes Filed: 06/09/2023 4:35 PM Note Text: This is a 48 year old male who presents today with: Patient presents with: Recheck: DM/HTN follow up; medication refills HISTORY OF PRESENT ILLNESS: Johnny Brumfield is a 48 year old male. Patient presents with: Recheck: DM/HTN follow up; medication refills Pt presents today for recheck. Needs medication refills. HTN: Patient is compliant with meds Yes Monitors bp at home: No. Denies side effects: No. Chest pain: No. Dyspnea: No. Edema: No. Palpitations: No. Syncope: No. Headache: No. Dizziness: No. DM: Reports overall feeling well. Medication side effects: No. Home sugar checks: not anymore Hypoglycemic spells: No. Watching diet: grilled chicken and turkey and supplements shakes. . Unexpected weight loss: No. Polyuria, polydipsia: No. Vision Changes: No. Last eye exam less than a year. Foot lesions or numbness or pain: No. Stopped the trulicity and januvia d/t cost. Is agreeable to restart if covered. GERD Controlled w/ PPI. Ulcerative colitis Better since eating better and avoiding fast foods. PAST MEDICAL HISTORY: PAST MEDICAL HISTORY Diagnosis Date GERD (gastroesophageal reflux disease) htn Hyperglycemia Ulcerative colitis (HCC) PAST SURGICAL HISTORY Procedure Laterality Date EXTRACTION, ERUPTED TOOTH OR EXPOSED ROOT (ELEVATION AND/OR FORCEPS REMOVAL) Bilateral Over 20 years ago NONE ALLERGIES Lisinopril MEDICATIONS Current Outpatient Medications Medication Sig amLODIPine (NORVASC) 5 mg tablet Take 1 tablet by mouth once daily. omeprazole (PRILOSEC) 20 mg capsule Take 1 capsule by mouth twice daily. 1/2 hr before meal. metFORMIN (GLUCOPHAGE) 500 mg tablet Take 1 tablet by mouth twice daily with meals. . dulaglutide (TRULICITY) 0.75 mg/0.5 mL pen injector Inject 0.75 mg subcutaneously one time a week. Inject dose once per week. Discard Pen After SITagliptin (JANUVIA) 100 mg tablet Take 1 tablet by mouth once daily. blood sugar diagnostic (BLOOD GLUCOSE TEST) test strip Test blood sugar(s) 1 times daily. Dx: Type 2 DM - Uncontrolled E11.65 Insulin: No Lancets lancets Test blood sugar(s) 1 times daily. Dx: Type 2 DM - Uncontrolled E11.65 Insulin: No mometasone (ELOCON) 0.1 % cream Apply 1 application to affected area once daily. No current facility-administered medications for this visit. FAMILY HISTORY Adopted: Yes Social History Tobacco Use Smoking status: Never Smokeless tobacco: Never Vaping Use Vaping Use: Never used Substance Use Topics Alcohol use: Yes Comment: none during the week, 12 pack on the weekends. Drug use: No EXAM: BP 144/100 Pulse 107 Resp 16 SpO2 98% PHYSICAL EXAM: General Appearance: Well appearing, alert, in no acute distress, well-hydrated, well nourished.. Skin: Skin color, texture, turgor normal, no suspicious rashes or lesions. Head: Normocephalic, no masses, lesions, tenderness or abnormalities. Eyes: Anicteric sclera. Pupils are equally round and reactive to light. Extraocular movements are intact. . Oropharynx: Lips, mucosa, and tongue normal, teeth and gums normal, oropharynx normal. Neck: Supple, no adenopathy; thyroid symmetric, normal size, no bruits. Lungs: Lungs clear to auscultation. No wheezing, rhonchi, rales.. Heart: RRR without murmur, gallop, or rubs. No ectopy. Abdomen: Normal abdominal exam, Abdomen soft, non-tender. + umbilical hernia. Bowel sounds normal. No masses, organomegaly. Extremities: No deformities, edema, skin discoloration, clubbing or cyanosis. Good capillary refill. Neurologic: Gait normal. ASSESSMENT/PLAN: 1. Uncontrolled type 2 diabetes mellitus with hyperglycemia (HCC) - ICD9: 250.02, ICD10: E11.65 (primary diagnosis) - Control undetermined, due for labs - Continue current medications He endorses that he is eating better and drinking less ETOH. Get labs. Follow-up pending results. 2. Hypertriglyceridemia - ICD9: 272.1, ICD10: E78.1 - Control undetermined, due for labs - Counseled on healthy diet and regular exercise - LIPID PANEL, NONFASTING 3. Hypertension, unspecified type - ICD9: 401.9, ICD10: I10 - Uncontrolled - Increase amlodipine - Recommend home blood pressure monitoring, to bring results to next visit - Encouraged sodium restriction, DASH or Mediterranean diet - Recommend regular aerobic exercise Recheck in 1 month. 4. Ulcerative colitis without complications, unspecified location (HCC) - ICD9: 556.9, ICD10: K51.90 Per notes, due for follow-up. He is aware that he can schedule within symptoms. If he would like to stay local, can consider Dr. Chambers -- he will check and see if Dr. Chambers is in his network. - CONSULT TO GASTROENTEROLOGY 5. Elevated liver enzymes - ICD9: 790.5, ICD10: R74.8 Endorses less ETOH intke. Rec (more content not included)... [facility] 06-09-2023 Instructions Naty Houston APRN.CNP - 06/09/2023 4:02 PM EDT Increase the amlodipine to 10 mg daily. Get the labs. Schedule with GI (let us know if Dr. Chambers is in network and we'll send the referral over for you). Recheck in a month. documented in this encounter [facility] 06-09-2023 History of Present illness Narrative This is a 48 year old male who presents today with: Patient presents with: Recheck: DM/HTN follow up; medication refills HISTORY OF PRESENT ILLNESS: Johnny Brumfield is a 48 year old male. Patient presents with: Recheck: DM/HTN follow up; medication refills Pt presents today for recheck. Needs medication refills. HTN: Patient is compliant with meds Yes Monitors bp at home: No. Denies side effects: No. Chest pain: No. Dyspnea: No. Edema: No. Palpitations: No. Syncope: No. Headache: No. Dizziness: No. DM: Reports overall feeling well. Medication side effects: No. Home sugar checks: not anymore Hypoglycemic spells: No. Watching diet: grilled chicken and turkey and supplements shakes. . Unexpected weight loss: No. Polyuria, polydipsia: No. Vision Changes: No. Last eye exam less than a year. Foot lesions or numbness or pain: No. Stopped the trulicity and januvia d/t cost. Is agreeable to restart if covered. GERD Controlled w/ PPI. Ulcerative colitis Better since eating better and avoiding fast foods. PAST MEDICAL HISTORY: PAST MEDICAL HISTORY Diagnosis Date GERD (gastroesophageal reflux disease) htn Hyperglycemia Ulcerative colitis (HCC) PAST SURGICAL HISTORY Procedure Laterality Date EXTRACTION, ERUPTED TOOTH OR EXPOSED ROOT (ELEVATION AND/OR FORCEPS REMOVAL) Bilateral Over 20 years ago NONE ALLERGIES Lisinopril MEDICATIONS Current Outpatient Medications Medication Sig amLODIPine (NORVASC) 5 mg tablet Take 1 tablet by mouth once daily. omeprazole (PRILOSEC) 20 mg capsule Take 1 capsule by mouth twice daily. 1/2 hr before meal. metFORMIN (GLUCOPHAGE) 500 mg tablet Take 1 tablet by mouth twice daily with meals. . dulaglutide (TRULICITY) 0.75 mg/0.5 mL pen injector Inject 0.75 mg subcutaneously one time a week. Inject dose once per week. Discard Pen After SITagliptin (JANUVIA) 100 mg tablet Take 1 tablet by mouth once daily. blood sugar diagnostic (BLOOD GLUCOSE TEST) test strip Test blood sugar(s) 1 times daily. Dx: Type 2 DM - Uncontrolled E11.65 Insulin: No Lancets lancets Test blood sugar(s) 1 times daily. Dx: Type 2 DM - Uncontrolled E11.65 Insulin: No mometasone (ELOCON) 0.1 % cream Apply 1 application to affected area once daily. No current facility-administered medications for this visit. FAMILY HISTORY Adopted: Yes Social History Tobacco Use Smoking status: Never Smokeless tobacco: Never Vaping Use Vaping Use: Never used Substance Use Topics Alcohol use: Yes Comment: none during the week, 12 pack on the weekends. Drug use: No EXAM: BP 144/100 Pulse 107 Resp 16 SpO2 98% PHYSICAL EXAM: General Appearance: Well appearing, alert, in no acute distress, well-hydrated, well nourished.. Skin: Skin color, texture, turgor normal, no suspicious rashes or lesions. Head: Normocephalic, no masses, lesions, tenderness or abnormalities. Eyes: Anicteric sclera. Pupils are equally round and reactive to light. Extraocular movements are intact. . Oropharynx: Lips, mucosa, and tongue normal, teeth and gums normal, oropharynx normal. Neck: Supple, no adenopathy; thyroid symmetric, normal size, no bruits. Lungs: Lungs clear to auscultation. No wheezing, rhonchi, rales.. Heart: RRR without murmur, gallop, or rubs. No ectopy. Abdomen: Normal abdominal exam, Abdomen soft, non-tender. + umbilical hernia. Bowel sounds normal. No masses, organomegaly. Extremities: No deformities, edema, skin discoloration, clubbing or cyanosis. Good capillary refill. Neurologic: Gait normal. ASSESSMENT/PLAN: 1. Uncontrolled type 2 diabetes mellitus with hyperglycemia (HCC) - ICD9: 250.02, ICD10: E11.65 (primary diagnosis) - Control undetermined, due for labs - Continue current medications He endorses that he is eating better and drinking less ETOH. Get labs. Follow-up pending results. 2. Hypertriglyceridemia - ICD9: 272.1, ICD10: E78.1 - Control undetermined, due for labs - Counseled on healthy diet and regular exercise - LIPID PANEL, NONFASTING 3. Hypertension, unspecified type - ICD9: 401.9, ICD10: I10 - Uncontrolled - Increase amlodipine - Recommend home blood pressure monitoring, to bring results to next visit - Encouraged sodium restriction, DASH or Mediterranean diet - Recommend regular aerobic exercise Recheck in 1 month. 4. Ulcerative colitis without complications, unspecified location (HCC) - ICD9: 556.9, ICD10: K51.90 Per notes, due for follow-up. He is aware that he can schedule within symptoms. If he would like to stay local, can consider Dr. Chambers -- he will check and see if Dr. Chambers is in his network. - CONSULT TO GASTROENTEROLOGY 5. Elevated liver enzymes - ICD9: 790.5, ICD10: R74.8 Endorses less ETOH intke. Recheck labs. 6. Gastroesophageal reflux disease without esophagitis - ICD9: 530.81, ICD10: K21.9 Controlled w/ PPI. 7. Pancolitis (HCC) - ICD9: 556.6, ICD10: K51.00 As above. 8. Poorly control type 2 diabetes mellitus (HCC) - ICD9: 250.00, ICD10: E11.65 - Control undetermined, due for labs - Continue current medications - METFORMIN 500 MG TABLET 9. GERD without esophagitis - ICD9: 530.81, ICD10: K21.9 Controlled w/ PPI. - OMEPRAZOLE 20 MG CAPSULE,DELAYED RELEASE Discussed treatment plan and patient voices understanding. Patient's questions answered appropriately. Medications and potential side effects were discussed and patient voices understanding. Return to the office as scheduled or as needed for worsening/no improvement. Naty Houston APRN.POSSUM TRAPPER documented in this encounter [facility] 05-27-2023 Note HNO ID: [id number] Author: Lila Ruano RPh Service: ? Author Type: Pharmacist Type: Progress Notes Filed: 05/27/2023 1:51 PM Note Text: Primary Care Pharmacy Panel Management This patient has been identified through panel management efforts by the primary care pharmacy team. Patient has appt scheduled with PCP team next week. Will reach out to provider to see if would be good candidate for PharmD referral and to discuss with patient at upcoming visit. Lila Ruano RPh [facility] 05-27-2023 Note Patient Outreach ( MEWO) JOHNNY BRUMFIELD ([id number]) 1975 M Date Time Provider Department 05/27/23 LILA RUANO [facility] During your visit today, we recorded the following information about you: Lila Ruano RPh 05/27/2023 1:51 PM Signed Primary Care Pharmacy Panel Management This patient has been identified through panel management efforts by the primary care pharmacy team. Patient has appt scheduled with PCP team next week. Will reach out to provider to see if would be good candidate for PharmD referral and to discuss with patient at upcoming visit. Lila Ruano [facility] Allergies As of Date: 05/27/2023 Noted Allergy Reaction LISINOPRIL 01/25/2020 7 - Swelling Date Reviewed: 10/10/2022 Reviewed by: Ariadne Anderson APRN.POSSUM TRAPPER - Fully Assessed Prescriptions as of 05/27/2023 - amLODIPine (NORVASC) 5 mg tablet Take 1 tablet by mouth once daily. - omeprazole (PRILOSEC) 20 mg capsule Take 1 capsule by mouth twice daily. 1/2 hr before meal. - dulaglutide (TRULICITY) 0.75 mg/0.5 mL pen injector Inject 0.75 mg subcutaneously one time a week. Inject dose once per week. Discard Pen After - metFORMIN (GLUCOPHAGE) 500 mg tablet Take 1 tablet by mouth twice daily with meals. . - SITagliptin (JANUVIA) 100 mg tablet Take 1 tablet by mouth once daily. - blood sugar diagnostic (BLOOD GLUCOSE TEST) test strip Test blood sugar(s) 1 times daily. Dx: Type 2 DM - Uncontrolled E11.65 Insulin: No - Lancets lancets Test blood sugar(s) 1 times daily. Dx: Type 2 DM - Uncontrolled E11.65 Insulin: No - mometasone (ELOCON) 0.1 % cream Apply 1 application to affected area once daily. Problem List As Of Date 05/27/2023 Noted Resolved HTN (hypertension) [I10] 04/11/2013 GERD (gastroesophageal reflux disease) [K21.9] Hyperglycemia [R73.9] 01/14/2017 01/25/2020 Altered bowel habits [R19.4] 09/15/2017 Dyspepsia [R10.13] 09/15/2017 Anemia [D64.9] 05/03/2018 Type 2 diabetes mellitus with complication, wit*10/07/2018 Pancolitis (HCC) [K51.00] 10/29/2018 Acute deep vein thrombosis (DVT) of tibial vein*11/01/2018 04/19/2019 Encounter Status:Closed by LILA RUANO on 05/27/23 [facility] 05-27-2023 History of Present illness Narrative Primary Care Pharmacy Panel Management This patient has been identified through panel management efforts by the primary care pharmacy team. Patient has appt scheduled with PCP team next week. Will reach out to provider to see if would be good candidate for PharmD referral and to discuss with patient at upcoming visit. Lila Ruano RPh documented in this encounter [facility] 05-11-2023 Miscellaneous Notes Pt needs appointment with provider. He was told at last refill request. He canceled his scheduled appointment. Patient needs amlodipine and omeprazole sent through [facility], please advise. Thank you documented in this encounter [facility] 10-10-2022 Instructions Ariadne Anderson APRN.POSSUM TRAPPER - 10/10/2022 11:47 AM EST (R19.7) Diarrhea, unspecified type (primary encounter diagnosis) Plan: predniSONE (DELTASONE) 20 mg tablet (Z87.19) History of colitis Plan: predniSONE (DELTASONE) 20 mg tablet -Prednisone with food. -Drink lots of fluids and get plenty of rest. -BRAT diet as tolerated. -Make follow up with primary care for monitoring and resolution in symptoms, call today for a follow up appointment. -Signs that warrant an ER evaluation: Sudden change/worsening in condition, lethargy, signs of dehydration, fever greater than 102 F that is not responding to Tylenol or ibuprofen (Motrin, Advil), drooling, difficulty swallowing, difficulty breathing, shortness of breath, chest pain, evidence of airway compromise (tripod position, neck extension, retractions), seizures, changes in mental status, or other concerns. BRAT DIET Bananas Applesauce [place] Saltine Cracker Animal Crackers Vanilla Wafers Pretzels Oatmeal Unsweetened Dry Cereal (Rice Krispies,Cheerios) Plain Baked or Boiled Potato Plain White Rice Plain Noodles All clear liquids listed below CLEAR LIQUID DIET Broth Jello Popsicles Pedialyte Gatorade NO Juices No milk or diary products documented in this encounter [facility] 10-10-2022 History of Present illness Narrative This note was created using [employer]. Subjective Johnny Brumfield is a 47 year old male. HPI by patient: Johnny Brumfield is a 47 year old presenting to the office with the complaint of gi symptoms. Started last night. Associated symptoms include diarrhea- worse last night, was going every 1/2 hour. Has gone about 10 times so far today. Isn't sure if food triggers it or stress. Has been under a lot of stress. Denies blood or mucus in the stool Denies fevers over night. Denies nausea and vomiting. Is pushing fluids okay. States history of ulcerative colitis. Has been seen in [facility] several times for this. OTC not used yet. No antibiotic use in the last 60 days. ALLERGIES Lisinopril Swelling Family History Reviewed Including Cardiac Diseases, Psychiatric Diseases, & Substance Abuse Adopted: Yes Social History Tobacco Use Smoking status: Never Smokeless tobacco: Never Vaping Use Vaping Use: Never used Alcohol use: Yes Comment: none during the week, 12 pack on the weekends. Drug use: No Active Ambulatory Problems HTN (hypertension) Date Noted: 04/11/2013 GERD (gastroesophageal reflux disease) Altered bowel habits Date Noted: 09/15/2017 Dyspepsia Date Noted: 09/15/2017 Anemia Date Noted: 05/03/2018 Type 2 diabetes mellitus with complication, without long-term current use of insulin (HCC) Date Noted: 10/07/2018 Pancolitis (HCC) Date Noted: 10/29/2018 Resolved Ambulatory Problems Hyperglycemia Date Noted: 01/14/2017 Acute deep vein thrombosis (DVT) of tibial vein of right lower extremity (HCC) Date Noted: 11/01/2018 Past Medical History: No date: htn No date: Ulcerative colitis (HCC) Review of Systems HENT: Negative. Eyes: Negative. Respiratory: Negative. Cardiovascular: Negative. Gastrointestinal: Positive for abdominal pain (some cramping) and diarrhea. Negative for nausea and vomiting. Endocrine: Negative. Genitourinary: Negative. Musculoskeletal: Negative. Skin: Negative. Neurological: Negative. Objective Pulse 74 Temp 36.2 C (97.2 F) (Temporal) Resp 16 Ht 177.8 cm (5' 10 ) Wt 104.3 kg (230 lb) SpO2 98% BMI 33.00 kg/m Physical Exam Vitals reviewed. Constitutional: General: He is not in acute distress. Appearance: He is not ill-appearing, toxic-appearing or diaphoretic. Cardiovascular: Rate and Rhythm: Normal rate and regular rhythm. Pulmonary: Effort: Pulmonary effort is normal. Breath sounds: Normal breath sounds. Abdominal: General: Bowel sounds are normal. Palpations: Abdomen is soft. Tenderness: There is abdominal tenderness in the right lower quadrant and left lower quadrant. Psychiatric: Behavior: Behavior is cooperative. Assessment and Plan (R19.7) Diarrhea, unspecified type (primary encounter diagnosis) Plan: predniSONE (DELTASONE) 20 mg tablet (Z87.19) History of colitis Plan: predniSONE (DELTASONE) 20 mg tablet -Prednisone with food. -Drink lots of fluids and get plenty of rest. -BRAT diet as tolerated. -Make follow up with primary care for monitoring and resolution in symptoms, call today for a follow up appointment. -Signs that warrant an ER evaluation: Sudden change/worsening in condition, lethargy, signs of dehydration, fever greater than 102 F that is not responding to Tylenol or ibuprofen (Motrin, Advil), drooling, difficulty swallowing, difficulty breathing, shortness of breath, chest pain, evidence of airway compromise (tripod position, neck extension, retractions), seizures, changes in mental status, or other concerns. The patient will pursue further outpatient evaluation with the primary care physician or another Urgent Care/Express Care as outlined in the after visit summary. The patient is agreeable to this plan of care and follow-up instructions have been explained in detail. The patient has received these instructions in written format and have expressed an understanding of the after visit summary. Medical Decision Making: Level: 4 - Moderate I spent a total of 20 minutes on the date of the service which included preparing to see the patient, [id number] patient care, completing clinical documentation, obtaining and/or reviewing separately obtained history, performing a medically appropriate examination, counseling and educating the patient/family/caregiver, and ordering medications, tests, or procedures. documented in this encounter [facility] 06-20-2022 Miscellaneous Notes Diagnoses: (K42.9) Umbilical hernia without obstruction or gangrene documented in this encounter [facility] 06-18-2022 History of Present illness Narrative Johnny Brumfield 1975 REFERRING PHYSICIAN: Delmy Mckoy PA-C CHIEF COMPLAINT: Consult HPI: The patient is a 47 year old male presents with umbilical hernia. He has noted this for about two years. He denies episodes of incarceration He has noted the area has become more tender. He denies gastrointestinal or urinary obstructive symptoms. He denies previous hernia repairs. PAST MEDICAL HISTORY Diagnosis Date GERD (gastroesophageal reflux disease) htn Hyperglycemia Ulcerative colitis (HCC) PAST SURGICAL HISTORY Procedure Laterality Date EXTRACTION, ERUPTED TOOTH OR EXPOSED ROOT (ELEVATION AND/OR FORCEPS REMOVAL) Bilateral Over 20 years ago NONE Current Outpatient Medications Medication Sig dulaglutide (TRULICITY) 0.75 mg/0.5 mL pen injector Inject 0.75 mg subcutaneously one time a week. Inject dose once per week. Discard Pen After amLODIPine (NORVASC) 5 mg tablet Take 1 tablet by mouth once daily. metFORMIN (GLUCOPHAGE) 500 mg tablet Take 1 tablet by mouth twice daily with meals. . omeprazole (PRILOSEC) 20 mg capsule Take 1 capsule by mouth twice daily. 1/2 hr before meal. SITagliptin (JANUVIA) 100 mg tablet Take 1 tablet by mouth once daily. blood sugar diagnostic (BLOOD GLUCOSE TEST) test strip Test blood sugar(s) 1 times daily. Dx: Type 2 DM - Uncontrolled E11.65 Insulin: No Lancets lancets Test blood sugar(s) 1 times daily. Dx: Type 2 DM - Uncontrolled E11.65 Insulin: No mometasone (ELOCON) 0.1 % cream Apply 1 application to affected area once daily. ALLERGIES: Lisinopril PERSONAL HISTORY: Social History Tobacco Use Smoking status: Never Smokeless tobacco: Never Vaping Use Vaping Use: Never used Substance Use Topics Alcohol use: Yes Comment: none during the week, 12 pack on the weekends. Drug use: No FAMILY HISTORY Adopted: Yes The review of systems data was entered by the nurse and reviewed by mt Nursing Notes: Lauren Mesfin MANDUJANO 06/18/2022 3:30 PM Signed REVIEW OF SYSTEMS: General: The patient NOTES fatigue, denies weight loss, denies weight gain, denies feeling hot, and denies feelings of cold. Eyes: The patient denies glaucoma, denies eye injury/surgery, wears contacts. Ear/Nose/Throat: The patient denies allergies, denies hayfever, denies ear infections, and denies bloody noses. Cardiovascular: The patient denies chest pain, denies heart disease, NOTES high blood pressure,denies cardiac stent, denies prior heart attack, denies irregular heart beat, denies high cholesterol, denies poor circulation, denies heart failure, other cardiac issues, denies claudication, denies cold feet, denies peripheral arterial stent. Respiratory: The patient denies tuberculosis, denies pneumonia, denies frequent cough, denies pulmonary embolism, denies shortness of breath, and denies coughing up blood. Gastrointestinal: The patient denies difficulty swallowing, NOTES acid reflux, denies ulcers, denies vomiting, denies jaundice/hepatitis, denies gallbladder problems, denies black or tarry stools, denies hemorrhoids, denies bleeding from rectum, denies diverticulitis, denies constipation, denies diarrhea, denies loss of stool control, and denies hernias. Kidney/Bladder: The patient denies kidney stones, denies urine infections, and denies bloody urine. Skin: The patient denies a history of skin cancer, denies bleeding/changing moles, and denies a history of skin rash. Neurologic: The patient denies a history of epilepsy/convulsions, denies headaches, denies head/spinal injuries, and denies stroke/TIA. Psychiatric: The patient denies psychiatric medications, denies depression, and denies voices, denies substance abuse. Endocrine: The patient denies thyroid disorders, NOTES diabetes, and denies hormonal problems. Hematologic: The patient denies a history of bruising, denies bleeding, and denies anemia, denies blood clots. Infections: The patient denies a history of measles and mumps, denies rheumatic fever, and denies sexually transmitted diseases. Musculoskeletal: The patient denies back pain/injury, denies back problems, denies sciatica, denies knee/foot trouble, denies arthritis, or denies gout. When was patient's last Mammogram screening? N/A Last Colonoscopy: None noted Lauren Mesfin MANDUJANO PHYSICAL EXAMINATION: General: The patient is 47 year old male, well nourished, well hydrated in no acute distress. The patient is oriented to time, place, and person. VITALS: Blood pressure 156/94, pulse 110, temperature 36.1 C (96.9 F), temperature source Temporal, resp. rate 14, height 177.8 cm (5' 10 ), weight 108.4 kg (239 lb), SpO2 96 %. Body mass index is 34.29 kg/m . Head - Normocephalic. EOM intact with sclera clear and no icterus noted. Neck - supple with no jugular venous distention noted. Trachea is midline. Lungs - clear to auscultation. Normal breath sounds. No rales/rhonchi/wheezing noted. No labored breathing noted, such as retractions. No cough heard. Heart - normal S1 and S2 auscultated. No rubs/clicks/murmurs noted. Regular rate. Abdomen - soft and benign. Rectus diastasis. Umbilical hernia noted reducible. Difficult to determine if any masses or organomegaly due to body habitus. Extremities - no calf tenderness noted. No pitting edema noted. Skin - normal skin integrity. Neurological - gait normal, no focal deficits noted. Psych - calm and appropriate Assessment IMPRESSION: umbilical hernia PLAN: I have discussed the above with the patient. I have offered umbilical hernia repair, possible use of mesh.. I have explained the procedure to the patient. I have counseled the patient as to the risks of the procedure, including but not limited to: infection, bleeding, injury to any blood vessels/nerves, scar tissue, injury to any intrabdominal organs, injury to bowel/bladder, intraabdominal abscess/bleeding, recurrence of hernia, wound infections, complications of anesthesia, etc. - the patient understands. The patient wishes to proceed. I have answered all questions to the patient s satisfaction and the patient has no further questions. I have confirmed and edited as necessary, the PFSH and ROS obtained by others. Consultation requested by Joel Mckoy for an opinion regarding patient's hernia. My final recommendations will be communicated back to the requesting physician by way of shared Medical record or letter to requesting physician via [place] mail. . Diagnoses: (K42.9) Umbilical hernia without obstruction or gangrene Return to Clinic: The patient will be scheduled for umbilical hernia repair at [place]. He requests the month of August for surgery due to his work schedule. I spent a total of 41 minutes on the date of the service which included preparing to see the patient with review of any pertinent laboratory studies/radiological imaging/medical records, [id number] patient care, obtaining oral medical history from the patient in this encounter, performing a medically appropriate examination, counseling and educating the patient/family/caregiver, and ordering and/or scheduling of medications/tests/procedures, and completing appropriate medical documentation. Neida Trujillo MD documented in this encounter [facility] 06-18-2022 Nurse Note REVIEW OF SYSTEMS: General: The patient NOTES fatigue, denies weight loss, denies weight gain, denies feeling hot, and denies feelings of cold. Eyes: The patient denies glaucoma, denies eye injury/surgery, wears contacts. Ear/Nose/Throat: The patient denies allergies, denies hayfever, denies ear infections, and denies bloody noses. Cardiovascular: The patient denies chest pain, denies heart disease, NOTES high blood pressure,denies cardiac stent, denies prior heart attack, denies irregular heart beat, denies high cholesterol, denies poor circulation, denies heart failure, other cardiac issues, denies claudication, denies cold feet, denies peripheral arterial stent. Respiratory: The patient denies tuberculosis, denies pneumonia, denies frequent cough, denies pulmonary embolism, denies shortness of breath, and denies coughing up blood. Gastrointestinal: The patient denies difficulty swallowing, NOTES acid reflux, denies ulcers, denies vomiting, denies jaundice/hepatitis, denies gallbladder problems, denies black or tarry stools, denies hemorrhoids, denies bleeding from rectum, denies diverticulitis, denies constipation, denies diarrhea, denies loss of stool control, and denies hernias. Kidney/Bladder: The patient denies kidney stones, denies urine infections, and denies bloody urine. Skin: The patient denies a history of skin cancer, denies bleeding/changing moles, and denies a history of skin rash. Neurologic: The patient denies a history of epilepsy/convulsions, denies headaches, denies head/spinal injuries, and denies stroke/TIA. Psychiatric: The patient denies psychiatric medications, denies depression, and denies voices, denies substance abuse. Endocrine: The patient denies thyroid disorders, NOTES diabetes, and denies hormonal problems. Hematologic: The patient denies a history of bruising, denies bleeding, and denies anemia, denies blood clots. Infections: The patient denies a history of measles and mumps, denies rheumatic fever, and denies sexually transmitted diseases. Musculoskeletal: The patient denies back pain/injury, denies back problems, denies sciatica, denies knee/foot trouble, denies arthritis, or denies gout. When was patient's last Mammogram screening? N/A Last Colonoscopy: None noted Lauren Toure LPN documented in this encounter [facility] 06-12-2022 History of Present illness Narrative 47 year old male with c/o concern about umbilical hernia Has been present for a couple years Not painful unless bumping into something. Diabetes Mellitus Type 2: Current medications: Dulaglutide 0.75mg SC weekly Glucophage 500mg daily Sitigliptin 100mg daily Taking medication as directed consistently? Yes Medical Issues / Complications: hypertension and hyperlipidemia Checking blood sugars at home? No. Watching diet? Started new diet: fish, turkey, chicken, yogurt and protein drinks. Physical Activity: Regular Hypoglycemic spells? No Any visual disturbance? No Chest pain? No New numbness, tingling or loss of sensation? No Any recent foot problems, sores or rashes? No Any recent or sudden weight loss? Yes Change in urination? No. Maybe once a week Any recent illness? No Last eye exam: due . Last foot exam: due. HBA1C: Hemoglobin A1C (%) Date Value 11/08/2021 9.9 11/28/2020 9.6 08/18/2019 9.5 ) CMP: Glucose 286 11/08/2021 BUN 16 11/08/2021 Creatinine 0.82 11/08/2021 Sodium 133 11/08/2021 Potassium 3.8 11/08/2021 Chloride 96 11/08/2021 CO2 23 11/08/2021 Protein, Total 7.5 11/08/2021 Albumin 4.4 11/08/2021 Calcium 9.2 11/08/2021 Alkaline Phosphatase 79 11/08/2021 Bilirubin, Total 1.2 11/08/2021 AST 93 11/08/2021 ALT 295 11/08/2021 Last 2 Encounter Wt Readings: Date: Wt: 11/25/2021 103.5 kg (228 lb 1.6 oz) 11/21/2021 102.1 kg (225 lb) Cholesterol, Total (mg/dL) Date Value 11/08/2021 173 11/28/2020 184 10/06/2018 161 Total Cholesterol, Nonfasting (mg/dL) Date Value 08/18/2019 195 HDL Cholesterol (mg/dL) Date Value 11/08/2021 75 11/28/2020 44 10/06/2018 35 HDL Cholesterol, Nonfasting (mg/dL) Date Value 08/18/2019 43 LDL Cholesterol (mg/dL) Date Value 11/08/2021 80 11/28/2020 110 10/06/2018 108 LDL Cholesterol, Nonfasting (mg/dL) Date Value 08/18/2019 125 Triglyceride (mg/dL) Date Value 11/08/2021 90 11/28/2020 151 10/06/2018 91 Triglycerides, Nonfasting (mg/dL) Date Value 08/18/2019 133 HTN: Current meds: Amlodipine 5mg daily Patient is compliant with meds Yes Monitors bp at home: No. If yes, readings: Denies side effects: No. Chest pain: No. Dyspnea: Yes. Edema: Yes. Palpitations: Yes. Syncope: Yes. Headache: Yes. Dizziness: Yes. Last 3 Encounter BP Readings: Date: BP: 11/25/2021 148/88 11/21/2021 136/78 11/08/2021 150/92 Last 2 Encounter Wt Readings: Date: Wt: 11/25/2021 103.5 kg (228 lb 1.6 oz) 11/21/2021 102.1 kg (225 lb) Quit ETOH a weekend ago Was drinking weekends 12pk, a couple during the week Outfitted home gym: plans to get in shape and lose weight. HISTORIES FAMILY HISTORY Adopted: Yes PAST MEDICAL HISTORY Diagnosis Date GERD (gastroesophageal reflux disease) htn Hyperglycemia Ulcerative colitis (HCC) PAST SURGICAL HISTORY Procedure Laterality Date NONE Social History Tobacco Use Smoking status: Never Smokeless tobacco: Never Substance Use Topics Alcohol use: Yes Comment: none during the week, 12 pack on the weekends. Drug use: No ACTIVE PROBLEM LIST Htn (Hypertension) Gerd (Gastroesophageal Reflux Disease) Altered Bowel Habits Dyspepsia Anemia Type 2 Diabetes Mellitus With Complication, Without Long-Term Current Use of Insulin (Hcc) Pancolitis (Hcc) Current Outpatient Medications Medication Sig Dispense Refill dulaglutide (TRULICITY) 0.75 mg/0.5 mL pen injector Inject 0.75 mg subcutaneously one time a week. Inject dose once per week. Discard Pen After 4 Each 2 amLODIPine (NORVASC) 5 mg tablet Take 1 tablet by mouth once daily. 90 tablet 3 metFORMIN (GLUCOPHAGE) 500 mg tablet Take 1 tablet by mouth twice daily with meals. . 60 tablet 0 omeprazole (PRILOSEC) 20 mg capsule Take 1 capsule by mouth twice daily. 1/2 hr before meal. 180 capsule 3 SITagliptin (JANUVIA) 100 mg tablet Take 1 tablet by mouth once daily. 90 tablet 3 blood sugar diagnostic (BLOOD GLUCOSE TEST) test strip Test blood sugar(s) 1 times daily. Dx: Type 2 DM - Uncontrolled E11.65 Insulin: No 50 Strip 11 Lancets lancets Test blood sugar(s) 1 times daily. Dx: Type 2 DM - Uncontrolled E11.65 Insulin: No 100 Each 11 mometasone (ELOCON) 0.1 % cream Apply 1 application to affected area once daily. 45 g 0 No current facility-administered medications for this visit. HEPATITIS B(1 of 3 - 3-dose series) Never done COVID-19 VACCINE(1) Never done HEPATITIS A(1 of 2 - Risk 2-dose series) Never done PNEUMOCOCCAL(1 - PCV) Never done URINE ALBUMIN:CREATININE RATIO Never done HIV SCREENING Never done BP CONTROLLED (<130/80) Never done DTAP,TDAP,TD(1 - Tdap) Never done DEPRESSION ASSESSMENT Never done DIABETIC FOOT EXAM due on 11/30/2021 DILATED RETINAL EXAM due on 01/12/2022 HBA1C due on 02/08/2022 INFLUENZA(1) due on 04/24/2022 COLORECTAL CANCER SCREENING due on 2022 EXAM: BP 142/86 Pulse 100 Resp 16 Wt 108 kg (238 lb) SpO2 99% BMI 34.15 kg/m Pleasant well overweight adult man in no acute distress. Alert and oriented all spheres. Normal affect and cognition. Speech normal. No deficits to learning or comprehension. Skin warm, dry, pink to lips and nailbeds. Normal turgor. Respirations regular and unlabored. HEENT: NCAT. No scleral icterus or conjunctival injection. TM's clear. Nose and oropharynx free from injection or lesion. Oral membranes moist and pink. No cervical lymph nodes. Thyroid non-tender, no masses, or enlargement. Carotids pulses 2+/4+ without bruits. No JVD with HOB at 30 degrees. Chest is normal shape. Lungs are clear to all barron with good air exchange through out. HRRR without murmur or gallop. No lifts, heaves, or rubs. Abdomen: active bowel sounds throughout, soft, nontender, no masses or organomegaly. No CVAT. Extrem: no clubbing, cyanosis, edema. Distal pulses 2+/4, prompt capillary refill. Feet:Shoes and socks removed, Are you having foot pain none, No deformities, ulcers, calluses, and sensitive to 10 gm monofilament ASSESSMENT/PLAN: 1. Gastroesophageal reflux disease without esophagitis - ICD9: 530.81, ICD10: K21.9 (primary diagnosis) - controlled on meds - Discussed lifestyle modifications including losing weight, limiting caffeine, no meals three hours before sleep, and head of bed elevation 2. Hypertension, unspecified type - ICD9: 401.9, ICD10: I10 - good control - Continue current medication(s) - Recommended regular aerobic exercise. - Recommend home blood pressure monitoring, to bring results in on next visit - Discussed need and benefit for weight loss. - Goal of BP <130/80 - CBC - COMP METABOLIC PANEL 3. Uncontrolled type 2 diabetes mellitus with hyperglycemia (HCC) - ICD9: 250.02, ICD10: E11.65 uncontrolled Recheck labs Applaud efforts - HGB A1C 4. Pancolitis (HCC) - ICD9: 556.6, ICD10: K51.00 quiescent 5. Current use of proton pump inhibitor - ICD9: V58.69, ICD10: Z79.899 Sx controlled on medication - MAGNESIUM BLD 6. Umbilical hernia without obstruction or gangrene - ICD9: 553.1, ICD10: K42.9 - CONSULT TO GENERAL SURGERY 7. Alcoholic cirrhosis of liver without ascites (HCC) - ICD9: 571.2, ICD10: K70.30 Recheck labs. Continue lifestyle changes- may need repeat US/ fibroscan - CBC - COMP METABOLIC PANEL 8. Elevated liver enzymes - ICD9: 790.5, ICD10: R74.8 recheck - CBC - COMP METABOLIC PANEL F/u in 6 months but may need sooner depending on lab Delmy Mckoy PA-C documented in this encounter [facility] 12-16-2021 Miscellaneous Notes Done Renata with [facility] [employer] calling and states a diabetic questionnaire was received from provider for the patient's life insurance application as requested. Renata states the was incorrect on the form (stated year of 1916) and requests the form to be corrected and faxed back to them at [phone], if possible. For questions call [phone]. Thank you. documented in this encounter [facility] 11-25-2021 Instructions Ariadne Anderson [email or web address].[email or web address] - 11/25/2021 3:30 PM EDT (R19.7) Diarrhea, unspecified type (primary encounter diagnosis) Plan: predniSONE (DELTASONE) 20 mg tablet (Z87.19) History of colitis Plan: predniSONE (DELTASONE) 20 mg tablet History of colitis and started with diarrhea today. No other symptoms yet. -Just finished a prednisone taper. Will do a burst of prednisone. Take with food. -Drink lots of fluids and get plenty of rest. Stick to the BRAT diet to avoid irritation. -Make follow up with primary care for monitoring and resolution in symptoms, stop at the manager front office and make follow up with GI. Consult placed at last pcp visit. -Signs that warrant an ER evaluation: Sudden change/worsening in condition, lethargy, signs of dehydration, blood in the stool or vomit, abdominal pain, fever greater than 102 F that is not responding to Tylenol or ibuprofen (Motrin, Advil), drooling, difficulty swallowing, difficulty breathing, shortness of breath, chest pain, evidence of airway compromise (tripod position, neck extension, retractions), seizures, changes in mental status, or other concerns. BRAT DIET (may eat any of the following as tolerated) Bananas Applesauce [place] Saltine Crackers Animal Crackers Pretzels Oatmeal Unsweetened Dry Cereal (Rice Krispies, Cheerios) Plain Baked or Boiled Potato Plain White Rice Plain Noodles All clear liquid listed below CLEAR LIQUID DIET (need to drink 2 ounces total every half hour) Broth Jello Popsicles Pedialyte Gatorade NO Juices NO Milk NO Dairy Products documented in this encounter [facility] 11-25-2021 History of Present illness Narrative This note was created using NoteWriter. Subjective Johnny Brumfield is a 46 year old male. HPI by patient: Johnny Brumfield is a 46 year old male presenting to the office with the complaint of colitis. Started today, had to leave work. Last flare up was last summer. Associated symptoms include diarrhea. Has gone over 20 times so far today. Denies blood in the stool. Denies nausea, vomiting, fevers, uri symptoms, cough, and abdominal pain. Denies uti symptoms. OTC not used. States he typically is treated with steroids. No antibiotic use in the last 30 days. Took blood pressure medication prior to coming in. ALLERGIES Lisinopril Swelling Family History Reviewed Including Cardiac Diseases, Psychiatric Diseases, & Substance Abuse Adopted: Yes Social History Tobacco Use Smoking status: Never Smoker Smokeless tobacco: Never Used Alcohol use: Yes Comment: none during the week, 12 pack on the weekends. Drug use: No Active Ambulatory Problems HTN (hypertension) Date Noted: 04/11/2013 GERD (gastroesophageal reflux disease) Altered bowel habits Date Noted: 09/15/2017 Dyspepsia Date Noted: 09/15/2017 Anemia Date Noted: 05/03/2018 Type 2 diabetes mellitus with complication, without long-term current use of insulin (HCC) Date Noted: 10/07/2018 Pancolitis ([facility]) Date Noted: 10/29/2018 Resolved Ambulatory Problems Hyperglycemia Date Noted: 01/14/2017 Acute deep vein thrombosis (DVT) of tibial vein of right lower extremity (HCC) Date Noted: 11/01/2018 Past Medical History: No date: htn No date: Ulcerative colitis ([facility]) Review of Systems Constitutional: Negative. HENT: Negative. Eyes: Negative. Respiratory: Negative. Cardiovascular: Negative. Gastrointestinal: Positive for diarrhea. Negative for abdominal distention, nausea and vomiting. Endocrine: Negative. Genitourinary: Negative. Musculoskeletal: Negative. Skin: Negative. Neurological: Negative. Objective BP 148/88 Pulse 113 Wt 103.5 kg (228 lb 1.6 oz) BMI 32.73 kg/m Physical Exam Vitals reviewed. Constitutional: General: He is not in acute distress. Appearance: He is not ill-appearing, toxic-appearing or diaphoretic. Cardiovascular: Rate and Rhythm: Regular rhythm. Tachycardia present. Pulmonary: Effort: Pulmonary effort is normal. Abdominal: General: Bowel sounds are increased. Palpations: Abdomen is soft. Tenderness: There is generalized abdominal tenderness. There is no guarding or rebound. Psychiatric: Behavior: Behavior is cooperative. Assessment and Plan (R19.7) Diarrhea, unspecified type (primary encounter diagnosis) Plan: predniSONE (DELTASONE) 20 mg tablet (Z87.19) History of colitis Plan: predniSONE (DELTASONE) 20 mg tablet History of colitis and started with diarrhea today. No other symptoms yet. -Just finished a prednisone taper. Will do a burst of prednisone. Take with food. -Drink lots of fluids and get plenty of rest. Stick to the BRAT diet to avoid irritation. -Make follow up with primary care for monitoring and resolution in symptoms, stop at the manager front office and make follow up with GI. Consult placed at last pcp visit. -Signs that warrant an ER evaluation: Sudden change/worsening in condition, lethargy, signs of dehydration, blood in the stool or vomit, abdominal pain, fever greater than 102 F that is not responding to Tylenol or ibuprofen (Motrin, Advil), drooling, difficulty swallowing, difficulty breathing, shortness of breath, chest pain, evidence of airway compromise (tripod position, neck extension, retractions), seizures, changes in mental status, or other concerns. The patient will pursue further outpatient evaluation with the primary care physician or another Urgent Care/Express Care as outlined in the after visit summary. The patient is agreeable to this plan of care and follow-up instructions have been explained in detail. The patient has received these instructions in written format and have expressed an understanding of the after visit summary. Medical Decision Making: Level: 3 - Low I spent a total of 20 minutes on the date of the service which included preparing to see the patient, [id number] patient care, completing clinical documentation, obtaining and/or reviewing separately obtained history, performing a medically appropriate examination, counseling and educating the patient/family/caregiver and ordering medications, tests, or procedures. documented in this encounter [facility] 11-21-2021 Instructions M Praneeth Mckoy PA-C - 11/21/2021 5:29 PM EDT Once you are on the Trulicity for a month, you may stop the sitagliptin as we disucssed. There is no complication using both, but also no added benefit. Check blood sugars fasting a.m. and 2h after evening meal x 3 days the s t week and the 4th week and report results to office by phone or MyChart. Dulaglutide: Patient drug information Access [employer] for additional drug information, tools, and databases. Copyright 0652-3803 [employer]. All rights reserved. (For additional information see Dulaglutide: Drug information ) Brand Names: [place] Trulicity Brand Names: Adeel Trulicity Warning Drugs like this one have been shown to cause thyroid cancer in some animals. It is not known if this drug may cause thyroid cancer in humans. Call your doctor right away if you have a neck mass, trouble breathing, trouble swallowing, or hoarseness that will not go away. Do not use this drug if you have a health problem called Multiple Endocrine Neoplasia syndrome type 2 (MEN 2), or if you or a family member have had thyroid cancer. What is this drug used for? It is used to lower blood sugar in patients with high blood sugar (diabetes). It is used to lower the chance of heart attack, stroke, and in some people. What do I need to tell my doctor BEFORE I take this drug? If you are allergic to this drug; any part of this drug; or any other drugs, foods, or substances. Tell your doctor about the allergy and what signs you had. If you have any of these health problems: Type 1 diabetes or stomach or bowel problems. If you have ever had pancreatitis. If the patient is a child. Do not give this drug to a child. This is not a list of all drugs or health problems that interact with this drug. Tell your doctor and pharmacist about all of your drugs (prescription or OTC, natural products, vitamins) and health problems. You must check to make sure that it is safe for you to take this drug with all of your drugs and health problems. Do not start, stop, or change the dose of any drug without checking with your doctor. What are some things I need to know or do while I take this drug? Tell all of your health care providers that you take this drug. This includes your doctors, nurses, pharmacists, and dentists. Follow the diet and workout plan that your doctor told you about. Wear disease medical alert ID (identification). Check your blood sugar as you have been told by your doctor. Have blood work checked as you have been told by the doctor. Talk with the doctor. Do not drive if your blood sugar has been low. There is a greater chance of you having a crash. It may be harder to control blood sugar during times of stress such as fever, infection, injury, or surgery. A change in physical activity, exercise, or diet may also affect blood sugar. Kidney problems have happened with drugs like this one. Sometimes, kidney problems have needed to be treated in the hospital. Dialysis has also been needed. Talk with your doctor. Tell your doctor if you have upset stomach, throwing up, diarrhea, or too much sweating. Losing too much fluid may raise your chance of kidney problems. If you are dehydrated, talk with your doctor. This drug may prevent other drugs taken by mouth from getting into the body. If you take other drugs by mouth, you may need to take them at some other time than this drug. Talk with your doctor. Do not share pen or cartridge devices with another person even if the needle has been changed. Sharing these devices may pass infections from one person to another. This includes infections you may not know you have. Tell your doctor if you are , plan on getting , or are breast-feeding. You will need to talk about the benefits and risks to you and the baby. What are some side effects that I need to call my doctor about right away? WARNING/CAUTION: Even though it may be rare, some people may have very bad and sometimes deadly side effects when taking a drug. Tell your doctor or get medical help right away if you have any of the following signs or symptoms that may be related to a very bad side effect: Signs of an allergic reaction, like rash; hives; itching; red, swollen, blistered, or peeling skin with or without fever; wheezing; tightness in the chest or throat; trouble breathing, swallowing, or talking; unusual hoarseness; or swelling of the mouth, face, lips, tongue, or throat. Signs of a pancreas problem (pancreatitis) like very bad stomach pain, very bad back pain, or very bad upset stomach or throwing up. Signs of kidney problems like unable to pass urine, change in how much urine is passed, blood in the urine, or a big weight gain. Change in eyesight. Low blood sugar can happen. The chance may be raised when this drug is used with other drugs for diabetes. Signs may be dizziness, headache, feeling sleepy or weak, shaking, fast heartbeat, confusion, hunger, or sweating. Call your doctor right away if you have any of these signs. Follow what you have been told to do for low blood sugar. This may include taking glucose tablets, liquid glucose, or some fruit juices. What are some other side effects of this drug? All drugs may cause side effects. However, many people have no side effects or only have minor side effects. Call your doctor or get medical help if any of these side effects or any other side effects bother you or do not go away: Not hungry. Feeling tired or weak. It is common to have diarrhea, upset stomach, throwing up, or stomach pain with this drug. Call your doctor if any of these side effects get very bad, bother you, or do not go away. These are not all of the side effects that may occur. If you have questions about side effects, call your doctor. Call your doctor for medical advice about side effects. You may report side effects to your national health agency. How is this drug best taken? Use this drug as ordered by your doctor. Read all information given to you. Follow all instructions closely. It is given as a shot into the fatty part of the skin on the top of the thigh, belly area, or upper arm. Take with or without food. Drink lots of noncaffeine liquids unless told to drink less liquid by your doctor. Take the same day each week. If you will be giving yourself the shot, your doctor or nurse will teach you how to give the shot. Do not use if the solution is cloudy, leaking, or has particles. Do not use if solution changes color. Wash your hands before and after use. Move site where you give the shot each time. If you are also using insulin, you may inject this drug and the insulin in the same area of the body but not right next to each other. Do not mix this drug in the same syringe with insulin. Keep taking this drug as you have been told by your doctor or other health care provider, even if you feel well. Throw away needles in a needle/sharp disposal box. Do not reuse needles or other items. When the box is full, follow all local rules for getting rid of it. Talk with a doctor or pharmacist if you have any questions. What do I do if I miss a dose? Take a missed dose as soon as you think about it. If it is less than 3 days (72 hours) until your next dose, skip the missed dose. Take your next dose on your normal day. Do not take 2 doses at the same time or extra doses. How do I store and/or throw out this drug? Store in a refrigerator. Do not freeze. Do not use if it has been frozen. If needed, you may store at room temperature for up to 14 days. Write down the date you take this drug out of the refrigerator. If stored at room temperature and not used within 14 days, throw this drug away. Store in the original container to protect from light. Protect from heat. Keep all drugs in a safe place. Keep all drugs out of the reach of children and pets. Throw away unused or drugs. Do not flush down a toilet or pour down a drain unless you are told to do so. Check with your pharmacist if you have questions about the best way to throw out drugs. There may be drug take-back programs in your area. General drug facts If your symptoms or health problems do not get better or if they become worse, call your doctor. Do not share your drugs with others and do not take anyone else's drugs. Some drugs may have another patient information leaflet. If you have any questions about this drug, please talk with your doctor, nurse, pharmacist, or other health care provider. If you think there has been an overdose, call your poison control center or get medical care right away. Be ready to tell or show what was taken, how much, and when it happened. Use of [employer] is subject to the Subscription and License Agreement. Topic 79099 Version 65.0 documented in this encounter [facility] 11-21-2021 History of Present illness Narrative 46 year old male with c/o here for instruction on trulicity injection which was a miscommunication through [facility]. Rx was not initiated as I was asking patient's input and gave him some details. He is making changes to reduce ETOH. US results were read and understood. EXAM: There were no vitals taken for this visit. Pleasant man in no acute distress. Alert and oriented all spheres. Normal affect and cognition. Speech normal. No deficits to learning or comprehension. Skin warm, dry, pink to lips and nailbeds. Normal turgor. Respirations regular and unlabored. Extrem: no clubbing or cyanosis. Edema: none. Extremities are warm and pink with prompt capillary refill. ASSESSMENT/PLAN: 1. Poorly control type 2 diabetes mellitus (HCC) - ICD9: 250.00, ICD10: E11.65 (primary diagnosis) Start dulaglutide injections weekly, monitor blood sugars fasting and 2-hour PC 3 days a week and forward results to me through [facility]. Complemented patient on his willingness to follow through and proceed with plan. Reviewed medication administration, box warnings, side effects. Also gave patient printed handout on how to get the injections and reviewed. Follow-up as scheduled in February. 2. Acute alcoholic hepatitis - ICD9: 571.1, ICD10: K70.10 Again complemented patient on willingness to cut back on alcohol, has outstanding lab work, will monitor is available. Delmy Mckoy PA-C documented in this encounter [facility] documented as of this encounter (statuses as of 11/21/2021) [facility]2019 History of Past illness Narrative* Problem Noted Date Resolved Date Acute deep vein thrombosis ( DVT) of tibial vein of right lower extremity 11/01/2018 04/19/2019 Last Assessment & Plan: lovenox wt based BID Fisher check for xarelto vs eliquis Hyperglycemia 01/14/2017 01/25/2020 documented as of this encounter (statuses as of 11/25/2021) [facility] History of Past illness Narrative* Problem Noted Date Resolved Date Acute deep vein thrombosis ( DVT) of tibial vein of right lower extremity 11/01/2018 04/19/2019 Last Assessment & Plan: lovenox wt based BID Fisher check for xarelto vs eliquis Hyperglycemia 01/14/2017 01/25/2020 documented as of this encounter (statuses as of 12/16/2021) [facility] History of Past illness Narrative* Problem Noted Date Resolved Date Acute deep vein thrombosis ( DVT) of tibial vein of right lower extremity 11/01/2018 04/19/2019 Last Assessment & Plan: lovenox wt based BID Fisher check for xarelto vs eliquis Hyperglycemia 01/14/2017 01/25/2020 documented as of this encounter (statuses as of 06/13/2022) [facility] History of Past illness Narrative* Problem Noted Date Resolved Date Acute deep vein thrombosis ( DVT) of tibial vein of right lower extremity 11/01/2018 04/19/2019 Last Assessment & Plan: lovenox wt based BID Fisher check for xarelto vs eliquis Hyperglycemia 01/14/2017 01/25/2020 documented as of this encounter (statuses as of 06/20/2022) [facility] History of Past illness Narrative* Problem Noted Date Resolved Date Acute deep vein thrombosis ( DVT) of tibial vein of right lower extremity 11/01/2018 04/19/2019 Last Assessment & Plan: lovenox wt based BID Fisher check for xarelto vs eliquis Hyperglycemia 01/14/2017 01/25/2020 documented as of this encounter (statuses as of 06/21/2022) [facility]03-[facility]2019 History of Past illness Narrative* Problem Noted Date Resolved Date Acute deep vein thrombosis ( DVT) of tibial vein of right lower extremity 11/01/2018 04/19/2019 Last Assessment & Plan: lovenox wt based BID Fisher check for xarelto vs eliquis Hyperglycemia 01/14/2017 01/25/2020 documented as of this encounter (statuses as of 10/10/2022) [facility]03-[facility]-2019 History of Past illness Narrative* Problem Noted Date Diagnosed Date Resolved Date Acute deep vein thrombosis ( DVT) of tibial vein of right lower extremity 11/01/2018 04/19/2019 Last Assessment & Plan: lovenox wt based BID Fisher check for xarelto vs eliquis Hyperglycemia 01/14/2017 01/25/2020 documented as of this encounter (statuses as of 05/29/2023) [facility] History of Past illness Narrative* Problem Noted Date Diagnosed Date Resolved Date Acute deep vein thrombosis ( DVT) of tibial vein of right lower extremity 11/01/2018 04/19/2019 Last Assessment & Plan: lovenox wt based BID Fisher check for xarelto vs eliquis Hyperglycemia 01/14/2017 01/25/2020 documented as of this encounter (statuses as of 06/10/2023) [facility] History of Past illness Narrative* Problem Noted Date Diagnosed Date Resolved Date Acute deep vein thrombosis ( DVT) of tibial vein of right lower extremity 11/01/2018 04/19/2019 Last Assessment & Plan: lovenox wt based BID Fisher check for xarelto vs eliquis Hyperglycemia 01/14/2017 01/25/2020 documented as of this encounter (statuses as of 10/08/2023) [facility] History of Past illness Narrative* Problem Noted Date Diagnosed Date Resolved Date Acute deep vein thrombosis ( DVT) of tibial vein of right lower extremity 11/01/2018 04/19/2019 Last Assessment & Plan: lovenox wt based BID Fisher check for xarelto vs eliquis Hyperglycemia 01/14/2017 01/25/2020 documented as of this encounter (statuses as of 10/09/2023) [facility] History of Past illness Narrative* Problem Noted Date Diagnosed Date Resolved Date Acute deep vein thrombosis ( DVT) of tibial vein of right lower extremity 11/01/2018 04/19/2019 Last Assessment & Plan: lovenox wt based BID Fisher check for xarelto vs eliquis Hyperglycemia 01/14/2017 01/25/2020 documented as of this encounter (statuses as of 10/11/2023) [facility] History of Past illness Narrative* Problem Noted Date Diagnosed Date Resolved Date Acute deep vein thrombosis ( DVT) of tibial vein of right lower extremity 11/01/2018 04/19/2019 Last Assessment & Plan: lovenox wt based BID Fisher check for xarelto vs eliquis Hyperglycemia 01/14/2017 01/25/2020 documented as of this encounter (statuses as of 10/15/2023) [facility] Diagnosis Poorly control type 2 diabetes mellitus (HCC)- Primary Acute alcoholic hepatitis [facility] Diagnosis Diarrhea, unspecified type- Primary History of colitis Personal history of other diseases of digestive system [facility] Diagnosis Gastroesophageal reflux disease without esophagitis- Primary Esophageal reflux Hypertension, unspecified type Uncontrolled type 2 diabetes mellitus with hyperglycemia (HCC) Pancolitis (HCC) Dent ulcerative (chronic) colitis Current use of proton pump inhibitor Encounter for long-term (current) use of other medications Umbilical hernia without obstruction or gangrene Umbilical hernia without mention of obstruction or gangrene Alcoholic cirrhosis of liver without ascites (HCC) Alcoholic cirrhosis of liver Elevated liver enzymes Other nonspecific abnormal serum enzyme levels [facility] Diagnosis Umbilical hernia without obstruction or gangrene Umbilical hernia without mention of obstruction or gangrene [facility] Diagnosis Diarrhea, unspecified type- Primary History of colitis Personal history of other diseases of digestive system [facility] Diagnosis Uncontrolled type 2 diabetes mellitus with hyperglycemia (HCC)- Primary Hypertriglyceridemia Pure hyperglyceridemia Hypertension, unspecified type Ulcerative colitis without complications, unspecified location (HCC) Elevated liver enzymes Other nonspecific abnormal serum enzyme levels Gastroesophageal reflux disease without esophagitis Esophageal reflux Pancolitis (HCC) Dent ulcerative (chronic) colitis Poorly control type 2 diabetes mellitus (HCC) GERD without esophagitis Esophageal reflux [facility] Diagnosis Hypertension, unspecified type GERD without esophagitis Esophageal reflux [facility] Diagnosis Swollen ankles- Primary Swelling of limb Hypertension, unspecified type Type 2 diabetes mellitus with complication, without long-term current use of insulin (HCC) Dyspepsia Dyspepsia and other specified disorders of function of stomach Gastroesophageal reflux disease without esophagitis Esophageal reflux Pancolitis (HCC) Dent ulcerative (chronic) colitis Iron deficiency anemia due to chronic blood loss Iron deficiency anemia secondary to blood loss (chronic) Screening for diabetic retinopathy Screening for other eye conditions Controlled type 2 diabetes mellitus without complication, without long-term current use of insulin (HCC) Poorly control type 2 diabetes mellitus (HCC) GERD without esophagitis Esophageal reflux High serum high density lipoprotein (HDL) Adjustment reaction with anxiety and depression Adjustment disorder with mixed anxiety and depressed mood [facility] Diagnosis Type 2 diabetes mellitus with complication, without long-term current use of insulin (HCC)- Primary Alcoholic cirrhosis of liver without ascites (HCC) Alcoholic cirrhosis of liver documented in this encounter [facility] Summary Purpose Family History No Family History Records FoundNo Family History Records Found Advance Directives Documents on File Type Date 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 Advance Directive(s) 10/29/2018 5:36 PM Reason for Referral Specialty Diagnoses / Procedures Referred By Contac t Referred To Contact General Surgery Diagnoses Umbilical hernia without obstruction or gangrene Procedures CONSULT TO GENERAL SURGERY OFFICE/OUTPATIENT [facility] 60-74 MINUTES Delmy Mckoy PA-C [address] [place] [address] Referral ID Status Reason Start Date Expiration Date Visits Requested Visits Authorized [id number] Authorized PCP Requested Referral 2 06/12/2023 1 1 Specialty Diagnoses / Procedures Referred By Contac t Referred To Contact Gastroenterology Diagnoses Ulcerative colitis without complications, unspecified location (HCC) Procedures CONSULT TO GASTROENTEROLOGY OFFICE/OUTPATIENT [facility] 60-74 MINUTES Naty Houston APRN.CNP [address] [place] [address] Referral ID Status Reason Start Date Expiration Date Visits Requested Visits Authorized [id number] Authorized PCP Requested Referral 3 06/08/2024 1 1 Specialty Diagnoses / Procedures Referred By Contac t Referred To Contact Ophthalmology Diagnoses Screening for diabetic retinopathy Procedures CONSULT TO OPHTHALMOLOGY OFFICE/OUTPATIENT [facility] 60 MINUTES Delmy Mckoy PA-C [address] [place] [address] Referral ID Status Reason Start Date Expiration Date Visits Requested Visits Authorized [id number] Authorized PCP Requested Referral 10/08/2023 10/07/2024 1 1 Additional Source Comments (unrecognized sect ion and content) No Status Records FoundNo Status Records Found INFORMATION SOURCE (unrecogn ized section and content) DATE CREATED AUTHOR AUTHOR'S ORGANIZ ATION 10/12/2023 [facility] Source Comments (unrecognize d section and content) In the event this informatio n is protected by the Federal Confidentiality of Alcohol and Drug Abuse Patient Records regulations: The Federal rules restrict any use of the information to criminally investigate or prosecute any alcohol or drug abuse patient.[facility] the event this information is protected by the Federal Confidentiality of Alcohol and Drug Abuse Patient Records regulations: The Federal rules restrict any use of the information to criminally investigate or prosecute any alcohol or drug abuse patient.[facility] the event this information is protected by the Federal Confidentiality of Alcohol and Drug Abuse Patient Records regulations: The Federal rules restrict any use of the information to criminally investigate or prosecute any alcohol or drug abuse patient.[facility] the event this information is protected by the Federal Confidentiality of Alcohol and Drug Abuse Patient Records regulations: The Federal rules restrict any use of the information to criminally investigate or prosecute any alcohol or drug abuse patient.[facility] the event this information is protected by the Federal Confidentiality of Alcohol and Drug Abuse Patient Records regulations: The Federal rules restrict any use of the information to criminally investigate or prosecute any alcohol or drug abuse patient.[facility] the event this information is protected by the Federal Confidentiality of Alcohol and Drug Abuse Patient Records regulations: The Federal rules restrict any use of the information to criminally investigate or prosecute any alcohol or drug abuse patient.[facility] the event this information is protected by the Federal Confidentiality of Alcohol and Drug Abuse Patient Records regulations: The Federal rules restrict any use of the information to criminally investigate or prosecute any alcohol or drug abuse patient.[facility] the event this information is protected by the Federal Confidentiality of Alcohol and Drug Abuse Patient Records regulations: The Federal rules restrict any use of the information to criminally investigate or prosecute any alcohol or drug abuse patient.[facility] the event this information is protected by the Federal Confidentiality of Alcohol and Drug Abuse Patient Records regulations: The Federal rules restrict any use of the information to criminally investigate or prosecute any alcohol or drug abuse patient.[facility] the event this information is protected by the Federal Confidentiality of Alcohol and Drug Abuse Patient Records regulations: The Federal rules restrict any use of the information to criminally investigate or prosecute any alcohol or drug abuse patient.[facility] the event this information is protected by the Federal Confidentiality of Alcohol and Drug Abuse Patient Records regulations: The Federal rules restrict any use of the information to criminally investigate or prosecute any alcohol or drug abuse patient.[facility] the event this information is protected by the Federal Confidentiality of Alcohol and Drug Abuse Patient Records regulations: The Federal rules restrict any use of the information to criminally investigate or prosecute any alcohol or drug abuse patient.[facility] HospitalIn the event this information is protected by the [facility] Confidentiality of Alcohol and Drug Abuse Patient Records regulations: The Federal rules restrict any use of the information to criminally investigate or prosecute any alcohol or drug abuse patient.[facility] the event this information is protected by the Federal Confidentiality of Alcohol and Drug Abuse Patient Records regulations: The Federal rules restrict any use of the information to criminally investigate or prosecute any alcohol or drug abuse patient.[facility] Care Teams (unrecognized sec tion and content) Manager Continuous Improvement Relationship Specialty Start Date End Date William Mcgregor MD [address], [place] [phone] PCP - General Family Practice 02/21/13 Manager Continuous Improvement Relationship Specialty Start Date End Date William Mcgregor MD [address], [place] [id number] PCP - General Family Practice 02/21/13 Manager Continuous Improvement Relationship Specialty Start Date End Date William Mcgregor MD [address], [place] [phone] PCP - General Family Medicine 02/21/13 Manager Continuous Improvement Relationship Specialty Start Date End Date William Mcgregor MD [address] [place] [address] PCP - General Family Medicine 02/21/13 Manager Continuous Improvement Relationship Specialty Start Date End Date William Mcgregor MD [address], [place] [id number] PCP - General Family Medicine 02/21/13 Manager Continuous Improvement Relationship Specialty Start Date End Date William Mcgregor MD [address] [place] [address] PCP - General Family Medicine 02/21/13 Manager Continuous Improvement Relationship Specialty Start Date End Date William Mcgregor MD [address] [place] [address] PCP - General Family Medicine 02/21/13 Manager Continuous Improvement Relationship Specialty Start Date End Date William Mcgregor MD [address] [place] [address] PCP - General Family Medicine 02/21/13 Manager Continuous Improvement Relationship Specialty Start Date End Date Delmy Mckoy PA-C [address] [place] [address] PCP - General Family Medicine 10/08/23 Manager Continuous Improvement Relationship Specialty Start Date End Date William Mcgregor MD [address], [place] [id number] PCP - General Family Medicine 02/21/13 10/07/23 Delmy Mckoy PA-C [address] [place] [address] PCP - General Family Medicine 10/08/23 Manager Continuous Improvement Relationship Specialty Start Date End Date Delmy Mckoy PA-C [address] [place] [address] PCP - General Family Medicine 10/08/23 Manager Continuous Improvement Relationship Specialty Start Date End Date Delmy Mckoy PA-C [address] [place] [address] PCP - General Family Medicine 10/08/23 Reason for Visit (unrecogniz ed section and content) Reason Comments Patient Request Reason Comments 09-04-2022 [facility] UMBILICAL HERNIA REPAIR Reason Comments Consult Specialty Diagnoses / Procedures Referred By Shai paul Referred To Contact General Surgery Diagnoses Umbilical hernia without obstruction or gangrene Procedures CONSULT TO GENERAL SURGERY OFFICE/OUTPATIENT [facility] 60-74 MINUTES Delmy Mckoy PA-C [address] [place] [address] Referral ID Status Reason Start Date Expiration Date V isits Requested Visits Authorized [id number] Closed PCP Requested Referral 06/12/2022 06/12/2023 1 1 Reason Comments Abdominal Pain I have ulcerative c olitis fare up. Dines abdominal pain but states I'm running to the bathroom all the time. Reason Comments Recheck DM/HTN follow up; me dication refills Reason Comments Behavioral Health/Social Work Reason Onset Date Comments Refill Request 05/11/2023 Reason Comments Edema In b/l ankles. Impro ju now, would like to figure out reason for swelling Reason Comments Results Reason Comments Medication Problem insurance issue [employer] FOR RECORDS PERTAINING TO PATIENTS WHO ARE OR HAVE BEEN ENROLLED IN A CHEMICAL DEPENDENCY/SUBSTANCEABUSE PROGRAM, SOME INFORMATION MAY BE OMITTED. This clinical summary was aggregated from multiple sources. Caution should be exercised in using it in the provision of clinical care. This summary normalizes information from multiple sources, and as a consequence, information in this document may materially change the coding, format and clinical context of patient data. In addition, data may be omitted in some cases. CLINICAL DECISIONS SHOULD BE BASED ON THE PRIMARY CLINICAL RECORDS. [employer] provides no warranty or guarantee of the accuracy or completeness of information in this document.
== END 2023-10-21 15:28 | disposition home or self-care (01) ==
PROVIDERS: Emergency Provider Emergency Medicine; PCP Family Medicine; Visit Provider Emergency Medicine
DX: S39.012A Strain of muscle, fascia and tendon of lower back, initial encounter (principal); E11.9 Type 2 diabetes mellitus without complications; X58.XXXA Exposure to other specified factors, initial encounter; M62.838 Other muscle spasm; I10 Essential (primary) hypertension; Z79.84 Long term (current) use of oral hypoglycemic drugs; Z79.899 Other long term (current) drug therapy; Z87.891 Personal history of nicotine dependence
CPT/HCPCS: 74176; 99283

== ENCOUNTER → 2024-04-15 | Day surgery (SDC) | payer OTHER, SELFPAY ==
[2024-04-15] VITALS (10 sets, daily range): BP systolic 120–167; BP diastolic 78–105; PULSE 64–131; RESP 16–20; TEMP 36.4–36.8; O2SAT 98–100; BMI 29.1
--- NOTE | 2024-04-15 13:50 | ED.VIS.GI ---
HPI HPI - GI History of Present Illness Chief Complaint: Foreign Body Detail of Chief Complaint: Chicken stuck in his throat since 11 AM yesterday. Informant: patient Abdominal Pain/Flank Pain Context: Gradual Onset Timing: Continuous Narrative Narrative: Healthy 48-year-old male history of hypertension and ulcerative colitis. Was eating chicken yesterday for lunch around 11 AM and he got stuck in his esophagus. Said he has been unable to swallow anything since then. He is bringing up fluids every time he tries to swallow. Denies any trouble breathing. Prior history of the same but he did not need endoscopy at that time it resolved after many hours and glucagon. Prior similar symptoms: Yes Recent Illness/[facility]: [facility] Medical History Pancolitis Type 2 diabetes mellitus with hyperglycemia Hypertension Ulcerative colitis GERD (gastroesophageal reflux disease) Home Medications ?Medication ?Instructions ?Recorded ?Last Taken ?Type lisinopril 10 mg tablet (Zestril) 10 mg PO DAILY 01/06/17 11/03/19 History albuterol sulfate 90 mcg/actuation 2 puff inhalation Q4H PRN PRN 11/03/19 Unknown Rx aerosol inhaler Wheezing ##1 azithromycin 250 mg tablet 250 mg PO UD ##1 11/03/19 Unknown Rx prednisone 20 mg tablet 40 mg (2 x 20 mg) PO DAILY #10 tabs 11/03/19 Unknown Rx amlodipine 5 mg tablet 5 mg PO DAILY 11/15/21 Unknown History metformin 500 mg tablet 500 mg PO BID 11/15/21 Unknown History omeprazole 20 mg capsule,delayed 20 mg PO BID 11/15/21 Unknown History release sitagliptin phosphate 100 mg tablet 100 mg PO DAILY 11/15/21 Unknown History cyclobenzaprine 10 mg tablet 10 mg PO TID PRN Muscle Spasm #20 10/21/23 Unknown Rx TABLETS hydrocodone-acetaminophen 5-325mg 1 tab PO Q6H PRN PRN Pain 3 days 10/21/23 Unknown Rx 5mg-325mg #10 TABLETS naproxen 500 mg tablet (Naprosyn) 500 mg PO BID PRN pain #20 tabs 10/21/23 Unknown Rx Allergy/AdvReac Type Severity Reaction Status Date / Time No Known Allergies Allergy Verified 10/21/23 14:05 Social History Smoking Status: Former smoker ROS ROS ED ROS Narrative Denies recent illness. He is having vomiting every time he tries to eat eat or drink now. Constitutional Constitutional ED: Denies chills or fever(s) ENT ENT ED: Denies ear pain Cardiovascular Cardiovascular: Denies chest pain Respiratory/Chest Respiratory/Chest: Denies cough Gastrointestinal Gastrointestinal: Denies abdominal pain Genitourinary Genitourinary ED: Denies dysuria Musculoskeletal Musculoskeletal: Denies arthralgias Integumentary Denies abscess Neurologic Neurologic: Denies headache(s) Psychiatric Psychiatric: Denies anxiety Endocrine Endocrinology: Denies polydipsia Hematologic/Lymphatic Hematologic/Lymphatic: Denies easy bleeding Allergic/Immunologic Allergic/Immunologic ED: Denies mouth swelling EXAM Physical Exam Narrative Exam Narrative: 48-year-old male no acute distress vital signs stable afebrile. Pulse ox 98% on room air no signs hypoxia. H EENT exam unremarkable. Moist membranes. Give the patient some water to drink. He swallowed it it sat there for a minute and he started throwing it back up. Neck nontender. Lungs clear. Heart regular rhythm. Abdomen soft nontender. Moving all 4 extremities. Nontender no edema. Neurologically is awake and alert no focal motor deficits. Const Vital Signs: 04/15/24 13:30 Temperature 97.5 F L Temperature Source Temporal Pulse Rate 121 H Respiratory Rate 20 H Blood Pressure 167/105 H Blood Pressure Mean 125 Pulse Ox 98 Oxygen Delivery Method Room Air Positive well nourished and well developed; Negative for obese General Appearance ED: well developed; Negative for pallor Nutritional Appearance: Negative for obese HEENT Reports moist mucous membranes normocephalic and atraumatic; Negative for trauma or tenderness Eyes PERRL and EOMs intact bilaterally General Eye ED: Negative for pale conjunctiva or scleral icterus Neck no lymphadenopathy, supple and no JVD General: Negative for tenderness Carotids: Negative for other Lymph Lymphatic: Negative for other Resp normal respiratory effort and clear to auscultation bilaterally Effort and Inspection: Negative for respiratory distress Auscultation: Negative for rales, rhonchi, wheezes or diminished lung sounds Cardio regular rate, regular rhythm, S1 normal heart sound, S2 normal heart sound and no murmurs Rate: Negative for bradycardia or tachycardic Rhythm: Negative for abnormal rhythm GI non-tender, non-distended and no masses Inspection: Negative for abdominal distention Auscultation: normoactive bowel sounds Palpation: soft; Negative for tender, guarding or rebound tenderness present Back/Spine no CVA tenderness Extremity full ROM General Extremety ED: Negative for edema or tenderness General Extremity: Negative for edema Neuro CN's II-XII intact bilaterally and moves all extremities Sensorium / Orientation: alert, oriented to person, oriented to place and oriented to time Motor Exam: strength 5/5 throughout Psych mental status grossly normal and thought process normal Attitude: No agitated Mood & Affect: Negative for depressed, anxious or tearful Skin no wounds General Skin Exam: Negative for jaundice or pallor Lesions: no lesions Rashes: no rashes Trauma: Negative for abrasion MDM MDM MDM Narrative Medical decision making narrative: 48-year-old male esophageal food bolus chicken from about 27 hours ago. I spoken to Dr. Chambers. The patient getting IV and a dose of Protonix and Dr. Hurd to take him to endoscopy. History & Record Review Discussion w/independent historian: Patient Additional record(s) reviewed:: Prior inpatient record, Prior outpatient record, Prior ED visit and Prior labs Discharge Plan Triage Chief Complaint: Foreign Body ED Provider: Austin Penaloza Dx/Rx/DC Orders Prescriptions: No Action metformin 500 mg tablet 500 mg PO BID sitagliptin phosphate 100 mg tablet 100 mg PO DAILY amlodipine 5 mg tablet 5 mg PO DAILY omeprazole 20 mg capsule,delayed release(DR/EC) 20 mg PO BID lisinopril [Zestril] 10 MG tablet 10 mg PO DAILY azithromycin 250 MG tablet 250 mg PO UD Qty: 1 0RF Rx Instructions: TAKE 2 TABLETS 1ST DAY THEN 1 TABLET DAILY FOR NEXT 4 DAYS. prednisone 20 MG tablet 40 mg PO DAILY Qty: 10 0RF Rx Instructions: With food albuterol sulfate 1 INHALER inhaler 2 puff inhalation Q4H PRN PRN (Reason: Wheezing) Qty: 1 0RF naproxen [Naprosyn] 500 mg tablet 500 mg PO BID PRN (Reason: pain) Qty: 20 0RF hydrocodone-acetaminophen 5-325 mg tablet 1 tab PO Q6H PRN PRN (Reason: Pain) 3 Days Qty: 10 0RF cyclobenzaprine 10 mg tablet 10 mg PO TID PRN (Reason: Muscle Spasm) Qty: 20 0RF Primary Care Provider: Jerrod Mcgregor Referrals: Jerrod Mcgregor MD [Primary Care Provider] - Print Language: Mohawk
[2024-04-15] MEDS: Pantoprazole Sodium 80 MG in 0.9% Normal Saline (50mL Bag) 15 ML 420 MG IV BOLUS (14:27)
--- NOTE | 2024-04-15 15:38 | PCM.PRE.AN2 ---
ASA Classification* ASA Classification ASA Classification: 2 Assessment & Plan Anesthesia* Anesthesia Assessment Anesthesia Assessment: Discussed sedation and/or anesthesia options, risks, benefits, and alternatives with patient/parents/legal guardian/POA. Questions invited. The patient/parents/legal guardian/POA seems to understand and agrees to proceed with anesthesia plan. Reviewed the physical assessment, medical history, allergy history and patient home medications list prior to surgery/procedure/anesthetic and documented any changes. Performed airway and anesthesia risk assessments. Anesthesia Type Anesthesia Type: MAC History Source History Obtained from:: Patient and Chart Anesthesia Focused Assessment* Temperature: 97.5 F Pulse Rate: 121 Blood Pressure: 167/105 Respiratory Rate: 20 Pulse Ox: 98 Oxygen Delivery Method: Room Air Airway Assessment Mouth opens: >3 cm Mallampati Score: III Teeth Condition: Missing (Missing left lower molar.) Neck Range of motion (ROM): Full ROM Focused Labs Anesthesia Preop lab: CBC WBC 6.6 K/mm3 (4.4-11.0) 11/05/17 22:05 RBC 5.48 M/mm3 (4.6-6.2) 11/05/17 22:05 Hgb 15.3 g/dl (13.0-16.5) 11/05/17 22:05 Hct 47.6 % (40-54) 11/05/17 22:05 Plt Count 183 K/mm3 (150-450) 11/05/17 22:05 CHEMISTRY Potassium 4.1 mmol/L (3.5-5.1) 11/05/17 22:05 Sodium 141 mmol/L (136-145) 11/05/17 22:05 BUN 7 mg/dL (7-18) 11/05/17 22:05 Creatinine 1.00 mg/dL (0.70-1.30) 11/05/17 22:05 Glucose 118 mg/dL (74-106) H 11/05/17 22:05 COAG PT 12.0 SECONDS (11.7-14.9) 01/06/17 17:50 Pre-Assessment Diagnosis/Proposed Procedure Planned Operative Procedure(s): EGD with foreign body removal Anesthesia History Anesthesia History - vp account director: Anesthesia History - vp account director Hx Hospitalization No 03/12/20 09:22 Any Problems With Anesthesia Cholinesterase deficiency You/Your Family Experience fever (hyperthermia) with Relationship Recent Exposure to Contagious Disease Does patient have nerve stimulator Patient instructed to have device shut off --Does patient have Pacemaker or ICD? When Was Last Pacemaker Check QUESTION #4 FULL TEXT: You/Your Family Experience fever (hyperthermia) with Anesthesia Last Oral Intake Last Oral intake: Last Oral Intake NPO since Meds taken in AM with sips of water? Meds patient instructed to take am of surgery Any additional information?: Yes NPO since: 00:00 PONV PONV - vp account director: PONV - vp account director Female HX of Motion Sickness HX of N/V After Surgery Non-Smoker Duration of Surgery greater than 60 minutes Number of Risk Factors PONV Score Height & Weight Height & Weight: Anesthesia: Height & Weight Height 5 ft 10 in 04/15/24 13:30 Weight: 92.079 kg 04/15/24 13:30 Body Mass Index (BMI) 29.1 04/15/24 13:30 Respiratory Assessment Respiratory Assessment - vp account director: Respiratory Tract Infection Hx - vp account director Hx Respiratory Tract Infection Any additional information?: Yes Hx Respiratory Tract Infection: No STOP Sleep Apnea STOP Sleep Apnea - vp account director: STOP Sleep Apnea - vp account director Hx Hypertension Yes 11/03/19 09:22 Hx Sleep Apnea No 11/03/19 09:22 CPAP BIPAP Do you snore loudly (louder than talking or can be heard Do you often feel tired/ fatigued/ sleepy during daytime? Has anyone observed you stop breathing during sleep? STOP Results QUESTION #5 FULL TEXT : Do you snore loudly (louder than talking or can be heard through closed doors)? Tobacco Use History Tobacco Use History - vp account director: Tobacco Use History - vp account director Tobacco Use Smoking Status Former smoker 04/15/24 14:17 Hx Tobacco Use No 11/03/19 09:22 Years Smoking Packs Smoked per Day Smoking Cessation Date was Yes - quit smoking within 15 04/15/24 14:17 within the last 15 years years Hx Smoking Cessation Date Hx Smoking Cessation Counseling Hematologic Medial History Hematologic Hx - vp account director: Hematologic Medical Hx - search engine optimizer Hx of Blood Transfusion Hx of Transfusion in last 3 Months Date of Last Transfusion (if within last 3 months) Ever experience any problems with transfusion(s)? Specify any problems Hx of Preganancy in last 3 Months Nurse Filling Out Transfusion & Questions: Date: Time: Patient unable to answer at this time (ie. confused, unrespo /Reproduction History /Reproductive History - vp account director: /Reproductive Hx- vp account director Hx Now Gestational Age (in weeks): EDC: Hx Hx Para Hx Section SAB [facility] Medical History (Updated 04/15/24 @ 15:[address] Tl Grullon MD) Abnormal colonoscopy Pancolitis Type 2 diabetes mellitus with hyperglycemia Hypertension Ulcerative colitis GERD (gastroesophageal reflux disease) Home Medications ?Medication ?Instructions ?Recorded ?Last Taken ?Type amlodipine 5 mg tablet 5 mg PO DAILY 11/15/21 04/14/24 History omeprazole 20 mg capsule,delayed 20 mg PO BID 11/15/21 04/14/24 History release cyclobenzaprine 10 mg tablet 10 mg PO TID PRN Muscle Spasm #20 10/21/23 Unknown Rx TABLETS losartan 50 mg tablet 50 mg PO DAILY 04/15/24 04/14/24 History tirzepatide (weight loss) 5 mg/0.5 5 mg subcut QWEEK diabetes 04/15/24 04/14/24 History mL subcutaneous pen injector (Zepbound) Allergy/AdvReac Type Severity Reaction Status Date / Time No Known Allergies Allergy Verified 04/15/24 14:50 Social History Smoking Status: Former smoker Review of Systems (Anesthesia) ROS Narrative System reviewed and no additional complaints, except as documented.
[2024-04-15 15:54] LABS: Bedside Glucose 118 mg/dL (74-106)
--- NOTE | 2024-04-15 16:00 | EGD_PTH ---
PATIENT: ZACH BRUMFIELD LOC: EN U#:[id number] AGE/SX: 48/M ROOM: RE04/15/[address]: Dr. Shawn Chambers DO : 1975 BED: DIS: 04/15/2024 SPEC #: [id number] RECD: 04/18/24 07:13 STATUS: KRISH RERula #: [id number] MELYSSA: 04/15/24 16:[address]: Shawn Chambers DEPT: SURGICAL PATHOLOGY RECD BY: Gaviota Thomas ENTERED: 04/18/24 09:27 SP TYPE: EGD BIOPSY HERMINIA DR: Dr. Jerrod Mcgregor MD Tissues: Esophagus, NOS Procedures: Special Stain Group I Surgery Specimen Level IV Alcian Blue/PAS (control) HEADER OPERATION: EGD, foreign body, biopsy PRE-OP DIAGNOSIS: Foreign body TISSUE SUBMITTED: Distal esophagus biopsy MICROSCOPIC DIAGNOSIS Distal esophagus, biopsy: Fragments of gastroesophageal mucosa with chronic inflammation. Intestinal metaplasia (goblet cell metaplasia) not identified. See comment. Connor 04/19/2024 COMMENT Alcian blue/PAS stain with matched control is used in the evaluation of the specimen. The specimen predominantly consists of squamous mucosa. MICROSCOPIC DESCRIPTION Slides are reviewed. GROSS DESCRIPTION Received in fixative is one container labeled with the patient's name and designated Distal esophagus biopsy. The specimen consists of multiple irregular fragments of light rogers soft tissue that in aggregate measure 1.5 x 0.5 x 0.1 cm. The specimen is totally submitted in one cassette. 04/18/2024 TC:3 CPT:50381,86384
--- NOTE | 2024-04-15 16:13 | PCM.HP.BLA ---
History and Physical Date of Admission: 04/15/24 HPI - GI History of Present Illness Chief Complaint: Foreign Body Detail of Chief Complaint: Chicken stuck in his throat since 11 AM yesterday. Informant: patient Abdominal Pain/Flank Pain Context: Gradual Onset Timing: Continuous Narrative Narrative: Healthy 48-year-old male history of hypertension and ulcerative colitis. Was eating chicken yesterday for lunch around 11 AM and he got stuck in his esophagus. Said he has been unable to swallow anything since then. He is bringing up fluids every time he tries to swallow. Denies any trouble breathing. Prior history of the same but he did not need endoscopy at that time it resolved after many hours and glucagon. Prior similar symptoms: Yes Recent Illness/Hospitalization: No PFSH PFS Medical History Pancolitis Type 2 diabetes mellitus with hyperglycemia Hypertension Ulcerative colitis GERD (gastroesophageal reflux disease) Home Medications ?Medication ?Instructions ?Recorded ?Last Taken ?Type lisinopril 10 mg tablet (Zestril) 10 mg PO DAILY 01/06/17 11/03/19 History albuterol sulfate 90 mcg/actuation 2 puff inhalation Q4H PRN PRN 11/03/19 Unknown Rx aerosol inhaler Wheezing ##1 azithromycin 250 mg tablet 250 mg PO UD ##1 11/03/19 Unknown Rx prednisone 20 mg tablet 40 mg (2 x 20 mg) PO DAILY #10 tabs 11/03/19 Unknown Rx amlodipine 5 mg tablet 5 mg PO DAILY 11/15/21 Unknown History metformin 500 mg tablet 500 mg PO BID 11/15/21 Unknown History omeprazole 20 mg capsule,delayed 20 mg PO BID 11/15/21 Unknown History release sitagliptin phosphate 100 mg tablet 100 mg PO DAILY 11/15/21 Unknown History cyclobenzaprine 10 mg tablet 10 mg PO TID PRN Muscle Spasm #20 10/21/23 Unknown Rx TABLETS hydrocodone-acetaminophen 5-325mg 1 tab PO Q6H PRN PRN Pain 3 days 10/21/23 Unknown Rx 5mg-325mg #10 TABLETS naproxen 500 mg tablet (Naprosyn) 500 mg PO BID PRN pain #20 tabs 10/21/23 Unknown Rx Allergy/AdvReac Type Severity Reaction Status Date / Time No Known Allergies Allergy Verified 10/21/23 14:05 Social History Smoking Status: Former smoker ROS ROS ED ROS Narrative Denies recent illness. He is having vomiting every time he tries to eat eat or drink now. Constitutional Constitutional ED: Denies chills or fever(s) ENT ENT ED: Denies ear pain Cardiovascular Cardiovascular: Denies chest pain Respiratory/Chest Respiratory/Chest: Denies cough Gastrointestinal Gastrointestinal: Denies abdominal pain Genitourinary Genitourinary ED: Denies dysuria Musculoskeletal Musculoskeletal: Denies arthralgias Integumentary Denies abscess Neurologic Neurologic: Denies headache(s) Psychiatric Psychiatric: Denies anxiety Endocrine Endocrinology: Denies polydipsia Hematologic/Lymphatic Hematologic/Lymphatic: Denies easy bleeding Allergic/Immunologic Allergic/Immunologic ED: Denies mouth swelling EXAM Physical Exam Narrative Exam Narrative: 48-year-old male no acute distress vital signs stable afebrile. Pulse ox 98% on room air no signs hypoxia. H EENT exam unremarkable. Moist membranes. Give the patient some water to drink. He swallowed it it sat there for a minute and he started throwing it back up. Neck nontender. Lungs clear. Heart regular rhythm. Abdomen soft nontender. Moving all 4 extremities. Nontender no edema. Neurologically is awake and alert no focal motor deficits. Const Vital Signs: 04/15/2413:30 Temperature 97.5 F L Temperature Source Temporal Pulse Rate 121 H Respiratory Rate 20 H Blood Pressure 167/105 H Blood Pressure Mean 125 Pulse Ox 98 Oxygen Delivery Method Room Air Positive well nourished and well developed; Negative for obese General Appearance ED: well developed; Negative for pallor Nutritional Appearance: Negative for obese HEENT Reports moist mucous membranes normocephalic and atraumatic; Negative for trauma or tenderness Eyes PERRL and EOMs intact bilaterally General Eye ED: Negative for pale conjunctiva or scleral icterus Neck no lymphadenopathy, supple and no JVD General: Negative for tenderness Carotids: Negative for other Lymph Lymphatic: Negative for other Resp normal respiratory effort and clear to auscultation bilaterally Effort and Inspection: Negative for respiratory distress Auscultation: Negative for rales, rhonchi, wheezes or diminished lung sounds Cardio regular rate, regular rhythm, S1 normal heart sound, S2 normal heart sound and no murmurs Rate: Negative for bradycardia or tachycardic Rhythm: Negative for abnormal rhythm GI non-tender, non-distended and no masses Inspection: Negative for abdominal distention Auscultation: normoactive bowel sounds Palpation: soft; Negative for tender, guarding or rebound tenderness present Back/Spine no CVA tenderness Extremity full ROM General Extremety ED: Negative for edema or tenderness General Extremity: Negative for edema Neuro CN's II-XII intact bilaterally and moves all extremities Sensorium / Orientation: alert, oriented to person, oriented to place and oriented to time Motor Exam: strength 5/5 throughout Psych mental status grossly normal and thought process normal Attitude: No agitated Mood & Affect: Negative for depressed, anxious or tearful Skin no wounds General Skin Exam: Negative for jaundice or pallor Lesions: no lesions Rashes: no rashes Trauma: Negative for abrasion MDM MDM MDM Narrative Medical decision making narrative: 48-year-old male esophageal food bolus chicken from about 27 hours ago.
--- NOTE | 2024-04-15 16:37 | PCM.POST.ANE ---
Anesthesia: Postop Eval I Current Vital Signs Temperature: 98.3 F Pulse Rate: 120 Blood Pressure: 120/91 Respiratory Rate: 16 Pulse Ox: 100 Oxygen Delivery Method: Room Air Assessment Airway patent: Yes Spontaneous unlabored respirations: Yes Mental status: Awake and Calm nausea: No Vomiting: No Anesthesia Complication: No Fluid Hydration Crystalloid volume administer (ml): 700 Total IV fluid infused: 700 Progress Note Anesthesia document: Postop Eval 1 completed: Yes
--- NOTE | 2024-04-15 16:39 | POSTOPAN2_ITS ---
Anesthesia Postop Eval I Sum Postop Eval Completion status Anesthesia document: Postop Eval 1 completed: Yes Anesthesia Postop Eval I Summary Anesthesia Postop Eval I Summary: Anesthesia Postop Eval I: Assessment Summary Airway patent Yes 04/15/24 16:39 [email or web address] [email or web address] Spontaneous unlabored Yes 04/15/24 16:39 HOT [email or web address] respirations Mental status Awake,Calm 04/15/24 16:39 [email or web address] [email or web address] nausea No 04/15/24 16:39 HOT STRIP [email or web address] Vomiting No 04/15/24 16:39 HOT [email or web address] Anesthesia Postop Eval I: Fluid Summary Crystalloid volume administer 700 04/15/24 16:39 HOT [email or web address].MDOT (ml) Colloids volume administered ( ml) Blood Product volume administered (ml) Total IV fluid infused 700 04/15/24 16:39 HOT [email or web address] [email or web address] Anesthesia Postop Eval I: Summary Notes Anesthesia Complication No 04/15/24 16:39 HOT [email or web address] [email or web address] Anesthesia Complication Comment: Post-operative progress note Anesthesia: Postop Eval II Evaluation Mental status: Awake and Calm Pain Level: 0 nausea: No Vomiting: No Complications Anesthesia Complication: No
--- NOTE | 2024-04-15 16:39 | PCM.POSTANE2 ---
Anesthesia Postop Eval I Sum Postop Eval Completion status Anesthesia document: Postop Eval 1 completed: Yes Anesthesia Postop Eval I Summary Anesthesia Postop Eval I Summary: Anesthesia Postop Eval I: Assessment Summary Airway patent Yes 04/15/24 16:39 [email or web address] Spontaneous unlabored Yes 04/15/24 16:39 BENCH [email or web address] respirations Mental status Awake,Calm 04/15/24 16:39 [email or web address] nausea No 04/15/24 16:39 BENCH [email or web address] Vomiting No 04/15/24 16:39 BENCH [email or web address] Anesthesia Postop Eval I: Fluid Summary Crystalloid volume administer 700 04/15/24 16:39 BENCH [email or web address] (ml) Colloids volume administered ( ml) Blood Product volume administered (ml) Total IV fluid infused 700 04/15/24 16:39 BENCH [email or web address] Anesthesia Postop Eval I: Summary Notes Anesthesia Complication No 04/15/24 16:39 BENCH [email or web address] Anesthesia Complication Comment: Post-operative progress note Anesthesia: Postop Eval II Evaluation Mental status: Awake and Calm Pain Level: 0 nausea: No Vomiting: No Complications Anesthesia Complication: No
--- NOTE | 2024-04-15 16:40 | OP.EGD_ITS ---
Patient Name: Johnny Adams Procedure Date: 04/15/2024 4:11 PM Date of : 1975 Age: 48 Procedure: Upper GI endoscopy Indications: Dysphagia Providers: Shawn Chambers DO Referring MD: Jerrod Mcgregor Medicines: Monitored Anesthesia Care Patient Profile: This is a 48 year old male. Refer to note in patient chart for documentation of history and physical. Patient has symptoms of dysphagia with both liquids and solids. Complications: No immediate complications. Procedure: Pre-Anesthesia Assessment: - Prior to the procedure, a History and Physical was performed, and patient medications and allergies were reviewed. The patient is competent. The risks and benefits of the procedure and the sedation options and risks were discussed with the patient. All questions were answered and informed consent was obtained. Patient identification and proposed procedure were verified by the physician in the pre-procedure area. Mental Status Examination: alert and oriented. Airway Examination: normal oropharyngeal airway and neck mobility. Respiratory Examination: clear to auscultation. CV Examination: normal. Prophylactic Antibiotics: The patient does not require prophylactic antibiotics. Prior Anticoagulants: The patient has taken no anticoagulant or antiplatelet agents. ASA Grade Assessment: III - A patient with severe systemic disease. After reviewing the risks and benefits, the patient was deemed in satisfactory condition to undergo the procedure. The anesthesia plan was to use monitored anesthesia care (MAC). Immediately prior to administration of medications, the patient was re-assessed for adequacy to receive sedatives. The heart rate, respiratory rate, oxygen saturations, blood pressure, adequacy of pulmonary ventilation, and response to care were monitored throughout the procedure. The physical status of the patient was re-assessed after the procedure. After obtaining informed consent, the endoscope was passed under direct vision. Throughout the procedure, the patient's blood pressure, pulse, and oxygen saturations were monitored continuously. The Endoscope was introduced through the mouth, and advanced to the second part of duodenum. The upper GI endoscopy was accomplished without difficulty. The patient tolerated the procedure well. Scope In: 4:21:46 PM Scope Out: 4:32:19 PM Total Procedure Duration Time 0 hours 10 minutes 33 seconds Findings: A severe Schatzki ring was found in the lower third of the esophagus. Biopsies were taken with a cold forceps for histology. Verification of patient identification for the specimen was done. Estimated blood loss was minimal. Food was found in the lower third of the esophagus. Removal was accomplished with a Ardon net. Verification of patient identification for the specimen was done. Estimated blood loss was minimal. A medium-sized hiatal hernia was present. No other significant abnormalities were identified in a careful examination of the stomach. The duodenal bulb was normal. Impression: - Severe Schatzki ring. Biopsied. - Food in the lower third of the esophagus. Removal was successful. - Medium-sized hiatal hernia. - Normal duodenal bulb. Recommendation: - Use Prilosec (omeprazole) 40 mg PO BID for 6 months. - Continue present medications. Procedure Code(s): --- Professional --- 54151, Esophagogastroduodenoscopy, flexible, transoral; with removal of foreign body(s) 64950, Esophagogastroduodenoscopy, flexible, transoral; with biopsy, single or multiple CPT copyright 2021 [employer]. All rights reserved. The codes documented in this report are preliminary and upon mail deliverer review may be revised to meet current compliance requirements. Shawn Chambers DO 04/15/2024 4:40:19 PM This report has been signed electronically. Number of Addenda: 0 Note Initiated On: 04/15/2024 4:11 PM
--- NOTE | 2024-04-15 16:40 | OP.CCLET_ITS ---
04/15/2024 Jerrod Mcgregor Re : Upper GI endoscopy procedure for Johnny Larsonjose Mcgregor This procedure was performed on Monday, April 15, 2024. My impressions and recommendations are as follows: Impressions : - Severe Schatzki ring. Biopsied. - Food in the lower third of the esophagus. Removal was successful. - Medium-sized hiatal hernia. - Normal duodenal bulb. Recommendations : - Use Prilosec (omeprazole) 40 mg PO BID for 6 months. - Continue present medications. My findings are described in the full procedure note, which is enclosed. If I can be of further assistance, please feel free to contact me at . Sincerely, Shawn Chambers, 04/15/2024 4:40:19 PM This report has been signed electronically.
== END | disposition home or self-care (01) ==
LOC: ED 13:55 → EN 14:18
PROVIDERS: Emergency Provider Emergency Medicine; PCP Family Medicine; Referring Provider Family Medicine; Visit Provider Internal Medicine Gastroenterology
PROC: 0DJ08ZZ Inspection of Upper Intestinal Tract, Via Natural or Artificial Opening Endoscopic (ICD-10-PCS; CPT 43235; principal; 2024-04-15 15:55)
DX: K22.2 Esophageal obstruction (principal); E11.9 Type 2 diabetes mellitus without complications; K44.9 Diaphragmatic hernia without obstruction or gangrene; T18.128A Food in esophagus causing other injury, initial encounter; X58.XXXA Exposure to other specified factors, initial encounter; K21.9 Gastro-esophageal reflux disease without esophagitis; I10 Essential (primary) hypertension; Z79.84 Long term (current) use of oral hypoglycemic drugs; Z79.899 Other long term (current) drug therapy; Z87.891 Personal history of nicotine dependence
CPT/HCPCS: 43239; 43247; 82962; 88305; 88312; 99283; J7120; A4216; J3490

== ENCOUNTER 2024-04-29 15:29 | Emergency (ER) | payer OTHER, SELFPAY ==
[2024-04-29 15:30] VITALS: BP 138/104; PULSE 110; RESP 18; TEMP 36; O2SAT 98; BMI 30.2
--- NOTE | 2024-04-29 17:20 | EX.ED.DYSGE1 ---
HPI History of Present Illness Chief Complaint: Foreign Body Informant: patient Narrative Narrative: Patient is a 48-year-old male with history of ulcerative colitis, hypertension and recent esophageal food impaction requiring endoscopy. This is performed on 04/15/[address] Chambers. 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 Patient was started on Prilosec 40 mg twice daily for 6 months. He states has been compliant with this and a soft diet. He did start advancing his diet for the past half week or so. He notes last night he ate a [employer] burrito with no issues. He was drinking fine last night. This morning he took a bite of an unquestionable and felt like he got stuck around his Gayle apple for about 45 minutes. He drank a large amount of water and finally was able to get to pass. Since then he has only had chicken noodle soup and mashed potatoes. He still feels that there is something in his esophagus however he is tolerating liquids and soft food at now. He initially went to urgent care but they directed him to the emergency room. He has no other complaints at this time. No vomiting reported. Denies any chest pain or difficulty breathing. [facility] Medical History Abnormal colonoscopy Pancolitis Type 2 diabetes mellitus with hyperglycemia Hypertension Ulcerative colitis GERD (gastroesophageal reflux disease) Home Medications ?Medication ?Instructions ?Recorded ?Last Taken ?Type amlodipine 5 mg tablet 5 mg PO DAILY 11/15/21 04/14/24 History omeprazole 20 mg capsule,delayed 20 mg PO BID 11/15/21 04/14/24 History release cyclobenzaprine 10 mg tablet 10 mg PO TID PRN Muscle Spasm #20 10/21/23 Unknown Rx TABLETS losartan 50 mg tablet 50 mg PO DAILY 04/15/24 04/14/24 History omeprazole 40 mg capsule,delayed 40 mg PO BID #60 caps 04/15/24 Unknown Rx release tirzepatide (weight loss) 5 mg/0.5 5 mg subcut QWEEK diabetes 04/15/24 04/14/24 History mL subcutaneous pen injector (Zepbound) Allergy/AdvReac Type Severity Reaction Status Date / Time No Known Allergies Allergy Verified 09/06/24 15:30 Social History Smoking Status: Former smoker ROS ROS ED Constitutional Constitutional ED: Denies chills or fever(s) ENT ENT ED: Reports other Details: Foreign body sensation in throat Cardiovascular Cardiovascular: Denies chest pain Respiratory/Chest Respiratory/Chest: Denies cough or dyspnea Gastrointestinal Gastrointestinal: Denies nausea or vomiting Musculoskeletal Musculoskeletal: Denies arthralgias or myalgias Integumentary Denies rash Neurologic Neurologic: Denies paresthesias or weakness EXAM Physical Exam Const Vital Signs: 04/29/24 15:30 Temperature 96.8 F L Temperature Source Temporal Pulse Rate 110 H Respiratory Rate 18 Blood Pressure 138/104 H Blood Pressure Mean 115 Pulse Ox 98 Oxygen Delivery Method Room Air Positive well nourished and well developed General Appearance ED: well developed and NAD HEENT Reports moist mucous membranes HEENT Narrative: Handling secretions. Normal phonation. Neck supple Chest Wall inspection of chest normal and palpation of chest normal Chest Narrative: No chest wall crepitus. Cardio regular rate and regular rhythm GI normal to inspection, nondistended, normoactive bowel sounds and non-tender Neuro oriented x3 Sensorium / Orientation: alert Motor Exam: Negative for general weakness Psych mental status grossly normal Skin no rashes or lesions noted MDM MDM MDM Narrative Medical decision making narrative: Patient is evaluated for a foreign body sensation in his throat after having a piece of an unquestionable peanut butter and jelly sandwich stuck there. It is since passed but ever since then he has had this sensation. He is worried there might be something stuck. He is not have any drooling, vomiting has been able to eat and drink since without issue. Suspect he has more of a globus hystericus and irritation of the esophagus from the prior blockage that is since been relieved. Will give him a GI cocktail to see if this helps with his sensation. Will give a p.o. challenge. Will touch base with GI but anticipate the patient can be discharged home. On repeat evaluation patient is improvement of symptoms. Will be discharged home with outpatient follow-up with GI. Did speak with Dr. Chambers on the phone who states patient needs to have repeat endoscopy for dilation of his rings. Discussed continuing a soft diet/liquid diet. Will continue his omeprazole. Discharge Plan Triage Chief Complaint: Foreign Body ED Provider: Loida Leonardo Dx/Rx/DC Orders Clinical Impression: Esophagitis, acute, Globus sensation Instructions: Esophagitis, ED Esophageal Foreign Body, Resolved Prescriptions: No Action amlodipine 5 mg tablet 5 mg PO DAILY omeprazole 20 mg capsule,delayed release(DR/EC) 20 mg PO BID cyclobenzaprine 10 mg tablet 10 mg PO TID PRN (Reason: Muscle Spasm) Qty: 20 0RF losartan 50 mg tablet 50 mg PO DAILY Zepbound 5 mg/0.5 mL pen injector 5 mg subcut QWEEK omeprazole 40 mg capsule,delayed release(DR/EC) 40 mg PO BID Qty: 60 6RF Primary Care Provider: Jerrod Mcgregor Referrals: Shawn Chambers DO [Med Staff - Active Staff] - 1-2 Weeks Jerrod Mcgregor MD [Primary Care Provider] - Activity Restrictions/Additional Instructions: Please continue to take small bites and to go to a liquid/soft diet for the next 24 hours. Do not think you have anything stuck in your throat at this time but I do think you have irritation from the piece of sandwich that was stuck in her throat earlier today. Please continue to follow-up with Dr. Chambers as you likely will need a repeat endoscopy or because of the stricture/tightening in your esophagus Print Language: Macedonian Disposition Disposition: Home, Self Care
[2024-04-29] MEDS: Mag /Aluminum/Simeth WCH UDC 30 ML ORAL.SUSP PO (17:43)
[2024-04-29] MEDS: Lidocaine 2% Viscous15 ML UDC 15 ML PO (17:43)
[2024-04-29 18:29] VITALS: BP 156/72; PULSE 62; RESP 18; TEMP 36.3; O2SAT 99
== END 2024-04-29 18:46 | disposition home or self-care (01) ==
PROVIDERS: Emergency Provider Emergency Medicine; PCP Family Medicine; Visit Provider Emergency Medicine
DX: R09.A2 Foreign body sensation, throat (principal); E11.9 Type 2 diabetes mellitus without complications; K21.00 Gastro-esophageal reflux disease with esophagitis, without bleeding; I10 Essential (primary) hypertension; Z79.85 Long-term (current) use of injectable non-insulin antidiabetic drugs; Z79.899 Other long term (current) drug therapy; Z87.891 Personal history of nicotine dependence
CPT/HCPCS: 99282

== ENCOUNTER 2024-09-14 10:14 | Observation (INO) | payer OTHER, SELFPAY ==
[2024-09-14] VITALS (7 sets, daily range): BP systolic 130–190; BP diastolic 72–97; PULSE 76–120; RESP 16–20; TEMP 36.3–36.9; O2SAT 96–100; BMI 31.9; BMI 31.5
--- NOTE | 2024-09-14 10:47 | EDS_ITS ---
HPI History of Present Illness Chief Complaint: Substance Abuse Informant: patient Onset/Context/Timing Onset: Today Context: Sudden Onset Timing: Continuous Quality: Shaky, lightheaded Location: Generalized Worsened by: Nothing Relieved by: Nothing Narrative Narrative: Patient presents with nausea, vomiting, lightheadedness, and shakiness that began today. Patient states that over the past 4 days, he had been drinking alcohol. Patient states he has been drinking liquor for the past 4 days. Patient states that he only normally drinks on weekends. Patient denies any hematemesis or coffee-ground emesis. Patient denies any diarrhea, melena, or hematochezia. Patient does admit to some shortness of breath. Patient denies any chest pain or cough. [facility] Medical History Abnormal colonoscopy Pancolitis Type 2 diabetes mellitus with hyperglycemia Hypertension Ulcerative colitis GERD (gastroesophageal reflux disease) Home Medications ?Medication ?Instructions ?Recorded ?Last Taken ?Type amlodipine 5 mg tablet 5 mg PO DAILY 11/15/21 09/14/24 History omeprazole 20 mg capsule,delayed 20 mg PO BID 11/15/21 09/14/24 History release losartan 50 mg tablet 50 mg PO DAILY 04/15/24 09/14/24 History Allergy/AdvReac Type Severity Reaction Status Date / Time No Known Allergies Allergy Verified 09/14/24 10:16 Surgical History no surgical history no surgical history Social History Smoking Status: Former smoker ROS ROS ED Constitutional Constitutional ED: Denies chills or fever(s) Eyes Eyes: Denies blurry vision or change in vision ENT ENT ED: Reports rhinorrhea; Denies sore throat Cardiovascular Cardiovascular: Denies chest pain or palpitations Respiratory/Chest Respiratory/Chest: Reports dyspnea; Denies cough Gastrointestinal Gastrointestinal: Reports nausea and vomiting; Denies abdominal pain, diarrhea or melena Genitourinary Genitourinary ED: Denies dysuria or hematuria Musculoskeletal Musculoskeletal: Denies back pain or neck pain Integumentary Denies abscess or rash Neurologic Neurologic: Denies headache(s) or weakness Allergic/Immunologic Allergic/Immunologic ED: Denies mouth swelling or urticaria EXAM Physical Exam Const Vital Signs: 09/14/24 10:14 09/14/24 12:15 09/14/24 14:00 Temperature 97.4 F L Temperature Source Oral Pulse Rate 120 H 100 103 H Respiratory Rate 18 20 H 16 Blood Pressure 190/92 H 153/72 H 158/88 H Blood Pressure Mean 124 99 111 Pulse Ox 100 100 98 Oxygen Delivery Method Room Air Room Air Room Air Positive well nourished and well developed General Appearance ED: well developed and NAD HEENT Reports moist mucous membranes Neck supple and no JVD Resp normal respiratory effort and clear to auscultation bilaterally Cardio regular rhythm Rate: tachycardic GI non-tender and non-distended Palpation: soft Neuro oriented x3, CN's II-XII intact bilaterally and no sensory deficits noted Sensorium / Orientation: alert Motor Exam: strength 5/5 throughout Psych mental status grossly normal MDM MDM MDM Narrative Medical decision making narrative: Differential diagnosis includes dehydration, alcohol withdrawal, electrolyte abnormality, pancreatitis, gastritis, and anxiety. CBC will be obtained to assess for leukocytosis and anemia. Comprehensive metabolic profile will be obtained to assess for hepatic function, renal function, and electrolyte abnormality. Lipase will be obtained to assess for pancreatitis. Urinalysis will be obtained to assess for urinary tract infection and hematuria. Serum alcohol level will be obtained to assess for alcohol intoxication. Urine drug screen will be obtained to assess for substance abuse. Serum acetone and lactate will be obtained to assess for alcoholic ketoacidosis. Lab Data Attestation: I reviewed the patient's lab results. Lab results narrative: CBC was reviewed and was essentially within normal limits. Comprehensive metabolic profile was reviewed. This was slightly elevated at 215. Total bilirubin was 1.4. AST was mildly elevated at 55 and ALT was mildly elevated at 90. Anion gap was elevated at 22. CO2 was low at 17. Sodium was 133, potassium was 3.2, and chloride was 94. Lipase was reviewed and was normal at 35. Serum acetone level was reviewed and was negative. Serum alcohol level was reviewed and was 6.0. Serum lactate was reviewed and was elevated at 3.9. Urinalysis was reviewed. There is no evidence of urinary tract infection or hematuria. There are urine ketones 150. Urine tox screen was reviewed and was negative. Labs: Laboratory Results - last 24 hr 09/14/24 09/14/24 09/14/24 10:59 13:15 13:31 WBC 8.8 RBC 5.96 Hgb 14.5 Hct 44.9 MCV 75.3 L MCH 24.3 L MCHC 32.3 RDW Std Deviation 44.9 H RDW Coeff of Kelsy 17.8 H Plt Count 219 MPV 8.9 Immature Gran % (Auto) 0.200 Neut % (Auto) 85.9 H Lymph % (Auto) 6.9 L [place] % (Auto) 5.0 Eos % (Auto) 0.8 Baso % (Auto) 1.2 H Absolute Neuts (auto) 7.6 Absolute Lymphs (auto) 0.61 L Nucleated RBC % 0 Sodium 133 L Potassium 3.2 L Chloride 94 L Carbon Dioxide 17.0 L Anion Gap 22 H BUN 15 Creatinine 1.22 Estim Creat Clear Calc 89.13 Est GFR (MDRD) Af Amer 82 Est GFR (MDRD) Non-Af 68 BUN/Creatinine Ratio 12.3 Glucose 215 H Lactic Acid 3.9 H* Calcium 10.3 H Total Bilirubin 1.40 H AST 55 H ALT 90 H Alkaline Phosphatase 74 Total Protein 8.7 H Albumin 4.4 Globulin 4.3 H Albumin/Globulin Ratio 1.0 Lipase 35 Urine Color Yellow Urine Clarity Clear Urine pH 6.0 Ur Specific [place] 1.025 Urine Protein 30 H Urine Glucose (UA) 250 H Urine Ketones 150 A* Urine Occult Blood Negative Urine Nitrite Negative Urine Bilirubin Negative Urine Urobilinogen Normal Ur Leukocyte Esterase Negative Urine RBC 0 SEEN Urine WBC 0 SEEN Ur Squamous Epith Cells 0 SEEN Urine Bacteria 0 SEEN Fine Granular Casts 0-5 SEEN Urine Mucus 0 SEEN Urine Opiates Screen NEGATIVE Urine Methadone Screen NEGATIVE Ur Barbiturates Screen NEGATIVE Ur Phencyclidine Scrn NEGATIVE Ur Amphetamines Screen NEGATIVE MDMA (Ecstasy) Screen NEGATIVE U Benzodiazepines Scrn NEGATIVE Urine Cocaine Screen NEGATIVE U Cannabinoids Screen NEGATIVE Ur Drug Screen Comment Ethyl Alcohol 6.0 Acetone Level NEGATIVE Management Discussion w/another healthcare provider: Hospitalist Treatment and Re-Evaluation :: Patient was given IV fluids. Orthostatic vital signs were obtained. Patient was still feeling somewhat shaky on reevaluation. Patient was advised there is findings. Case was discussed with the hospitalist. She will admit the patient into PCU for observation. Patient understood and was agreeable with the plan. All questions were answered. Discharge Plan Dx/Rx/DC Orders Clinical Impression: Alcoholic ketoacidosis, Dehydration, Acidosis, lactic Disposition Disposition: [facility]
[2024-09-14 11:34] LABS: AST(SGOT) 55 U/L (15-37); Alanine Aminotransfer ALT/SGPT 90 U/L (16-61); Albumin, Serum 4.4 g/dL (3.2-5.0); Alkaline Phosphatase 74 U/L (45-117); Anion Gap 22 (5-15); BUN 15 mg/dL (7-18); BUN/Creat Ratio 12.3 RATIO (10-20); Calcium,Total 10.3 mg/dL (8.5-10.1); Chloride 94 mmol/L (98-107); Creatinine, Serum 1.22 mg/dL (0.70-1.30); EST Glomerular Filtration Rate 68 mL/min (>60); Est Glom Filt Rate - Afr Amer 82 mL/min (>60); Estimated Creatinine Clearance 89.13 ml/min; Globulin 4.3 g/dL (2.2-4.2); Glucose 215 mg/dL (74-106); Lipase 35 U/L (13-75); Potassium 3.2 mmol/L (3.5-5.1); Protein, Total 8.7 g/dL (6.4-8.2); Sodium Level 133 mmol/L (136-145)
[2024-09-14 11:40] LABS: Absolute Lymphocyte Count 0.61 X10^3/uL (0.83-4.51); Absolute Neutrophil Count 7.6 X10^3/uL (2.0-7.7); Basophil# 0.11 X10^3/uL; Basophil% 1.2 % (0-1); Eosinophil# 0.07 X10^3/uL; Eosinophils% 0.8 % (0-5); Hematocrit 44.9 % (40-54); Hemoglobin 14.5 g/dL (13.0-16.5); Lymphocyte # 0.61 X10^3/ul (0.83-4.51); Lymphocyte % 6.9 % (19-41); Mean Corp Hgb Conc 32.3 g/dL (32-36); Mean Corpuscular Hgb 24.3 pg (27.0-32.0); Mean Corpuscular Volume 75.3 fL (80-94); Mean Platelet Vol. 8.9 fl (6.2-12.0); Monocyte# 0.44 X10^3/uL; NRBC Flagged by Analyzer 0 % (0-5); Neutrophil # 7.59 X10^3/uL (2.7-7.7); Neutrophil % 85.9 % (47-70); Platelet Count 219 K/mm3 (150-450); RBC Distribution Width CV 17.8 % (11.6-14.6); RBC Distribution Width SD 44.9 fl (35.1-43.9); Red Blood Count 5.96 M/mm3 (4.6-6.2); White Blood Count 8.8 K/mm3 (4.4-11.0)
[2024-09-14] MEDS: hydrOXYzine PAM 25 MG Capsule PO (12:30)
[2024-09-14] MEDS: Ondansetron 4 MG/2 ML Vial IV (12:30)
[2024-09-14] MEDS: 0.9% Normal Saline (1000mL) 1,000 ML 1000 ML IV ×2 (12:30→13:29)
[2024-09-14 13:50] LABS: Bacteria 0 SEEN /hpf (None Seen); Mucous, Urine 0 SEEN /hpf (<or=2+); Red Blood Cells-Urine 0 SEEN /hpf (0-5); Squamous Epithelial Cells - UA 0 SEEN /hpf (0-5); White Blood Cells 0 SEEN /hpf (0-5)
[2024-09-14 13:57] LABS: Color, Urine Yellow (Yellow); Glucose, Dipstick 250 mg/dl (Normal); Leukocyte Esterase-Dipstick Negative /ul (Negative); Nitrite-Dipstick Negative (Negative); Occult Blood-Urine Negative /ul (Negative); Protein-Dipstick 30 mg/dl (Negative); Specific Gravity, Urine 1.025 (1.002-1.030); Urine Bilirubin Dipstick Negative (Negative); Urine Clarity Clear (Clear); Urine Urobilinogen Normal (Normal)
[2024-09-14 13:58] LABS: Ketone-Dipstick 150 mg/dl (Negative)
[2024-09-14 14:01] LABS: Lactic Acid 3.9 mmol/L (0.4-1.9)
[2024-09-14 14:12] LABS: Amphetamine Urine NEGATIVE (<1000 ng/mL); Barbiturate Urine VISTA NEGATIVE (< 200 ng/mL); Benzodiazepine Urine VISTA NEGATIVE (< 200 ng/mL); Cocaine Urine VISTA NEGATIVE (< 300 ng/mL); Ecstacy Urine VISTA NEGATIVE (< 500 ng/mL); Methadone Urine VISTA NEGATIVE (< 300 ng/mL); PCP Urine VISTA NEGATIVE (< 25 ng/mL); THC Urine VISTA NEGATIVE (< 50 ng/mL); Vista UDS pH Range 5
[2024-09-14 14:20] LABS: Fine Granular Cast- Urine 0-5 SEEN /lpf (0-5)
--- NOTE | 2024-09-14 15:04 | PCM.HP.STD ---
HPI - General General Date of Admission: 09/14/24 Date of Service: 09/14/24 Chief Complaint: Lightheaded, shaky HPI Narrative ZACH BRUMFIELD, is a 49-year-old male history of GERD, hypertension, diabetes presented [facility] ED 09/14/2024 for nausea, vomiting, lightheadedness and shakiness that began today. Over the past 4 days he has been drinking liquor and usually in the drinks on weekends. In the ED alcohol level of 6 with a sodium of 133, potassium 3.2 and patient noted to have a bicarb of 17 with an anion gap of 22 with glucose of 215, serum acetone negative, urine ketones positive and lactic acid of 3.9. Additionally calcium slightly elevated 10.3 with total bili 1.4, AST 55, ALT 90. Patient little bit tachycardic and hypertensive on arrival but this improved while in the ED. Patient given IV fluids and hydroxyzine and hospitalist contacted for admission. Patient evaluated bedside, reports usually drinks about 2 regular sized regular percentage beers nightly and has never had problems with shaking or withdrawal symptoms before but given all of the football and celebration over the weekend he has been drinking vodka and has not been eating or drinking very well. He went to work and was shaky and started vomiting and lightheaded and given how bad he felt he came to the ED. He has beginning to feel better, nausea improving, lightheadedness improving but presently is laying in bed. Shakiness beginning to improve. [facility] Medical History Abnormal colonoscopy Pancolitis Type 2 diabetes mellitus with hyperglycemia Hypertension Ulcerative colitis GERD (gastroesophageal reflux disease) Home Medications ?Medication ?Instructions ?Recorded ?Last Taken ?Type amlodipine 5 mg tablet 5 mg PO DAILY 11/15/21 09/14/24 History omeprazole 20 mg capsule,delayed 20 mg PO BID 11/15/21 09/14/24 History release losartan 50 mg tablet 50 mg PO DAILY 04/15/24 09/14/24 History Allergy/AdvReac Type Severity Reaction Status Date / Time No Known Allergies Allergy Verified 09/14/24 10:16 Surgical History no surgical history Social History Smoking Status: Former smoker ROS ROS Narrative General: Denies fever/chills HENT: Denies headache, denies stuffy nose, denies sore throat EYES: Denies changes in vision Resp: Denies cough, denies shortness of breath Cardiac: Denies chest pain GI: Denies abdominal pain, denies changes in bowel, was having nausea and vomiting earlier today which is improving : Denies changes in urination Extremity: Denies swelling MSK: Feels generally unwell Neuro: Denies any numbness/tingling, lightheaded feeling improving Heme: Denies any bleeding or bruising Skin: Denies rashes Psychiatric: No complaints voiced Vital Signs Vital Signs Vital Signs: 09/14/24 10:14 09/14/24 12:15 09/14/24 14:00 Temperature 97.4 F L Temperature Source Oral Pulse Rate 120 H 100 103 H Respiratory Rate 18 20 H 16 Blood Pressure 190/92 H 153/72 H 158/88 H Blood Pressure Mean 124 99 111 Pulse Ox 100 100 98 Oxygen Delivery Method Room Air Room Air Room Air Weight Weight: 100.953 kg Body Mass Index (BMI) 31.9 Physical Exam Narrative General: Alert, oriented, appears anxious and shaky HEENT: Atraumatic, normocephalic Eyes: Anicteric, normal conjunctiva, extraocular movements grossly intact Neck: Supple Respiratory: Clear to auscultation bilaterally, normal respiratory effort Cardiovascular: Low-grade sinus tachycardia GI: Soft, nontender, nondistended Extremities: No edema Musculoskeletal: Moving all extremities Neuro: No overt focal neurological deficits Skin: No rashes appreciated Psych: Cooperative Results Lab / Micro Data 09/14/24 10:59 09/14/24 10:59 Labs: Laboratory Results - last 24 hr 09/14/24 10:59: WBC 8.8, RBC 5.96, Hgb 14.5, Hct 44.9, MCV 75.3 L, MCH 24.3 L, MCHC 32.3, RDW Std Deviation 44.9 H, RDW Coeff of Kelsy 17.8 H, Plt Count 219, MPV 8.9, Immature Gran % (Auto) 0.200, Neut % (Auto) 85.9 H, Lymph % (Auto) 6.9 L, [place] % (Auto) 5.0, Eos % (Auto) 0.8, Baso % (Auto) 1.2 H, Absolute Neuts (auto) 7.6, Absolute Lymphs (auto) 0.61 L, Nucleated RBC % 0, Sodium 133 L, Potassium 3.2 L, Chloride 94 L, Carbon Dioxide 17.0 L, Anion Gap 22 H, BUN 15, Creatinine 1.22, Estim Creat Clear Calc 89.13, Est GFR (MDRD) Af Amer 82, Est GFR (MDRD) Non-Af 68, BUN/Creatinine Ratio 12.3, Glucose 215 H, Calcium 10.3 H, Total Bilirubin 1.40 H, AST 55 H, ALT 90 H, Alkaline Phosphatase 74, Total Protein 8.7 H, Albumin 4.4, Globulin 4.3 H, Albumin/Globulin Ratio 1.0, Lipase 35, Ethyl Alcohol 6.0, Acetone Level NEGATIVE 09/14/24 13:15: Lactic Acid 3.9 H* 09/14/24 13:31: Urine Color Yellow, Urine Clarity Clear, Urine pH 6.0, Ur Specific [place] 1.025, Urine Protein 30 H, Urine Glucose (UA) 250 H, Urine Ketones 150 A*, Urine Occult Blood Negative, Urine Nitrite Negative, Urine Bilirubin Negative, Urine Urobilinogen Normal, Ur Leukocyte Esterase Negative, Urine RBC 0 SEEN, Urine WBC 0 SEEN, Ur Squamous Epith Cells 0 SEEN, Urine Bacteria 0 SEEN, Fine Granular Casts 0-5 SEEN, Urine Mucus 0 SEEN, Urine Opiates Screen NEGATIVE, Urine Methadone Screen NEGATIVE, Ur Barbiturates Screen NEGATIVE, Ur Phencyclidine Scrn NEGATIVE, Ur Amphetamines Screen NEGATIVE, MDMA (Ecstasy) Screen NEGATIVE, U Benzodiazepines Scrn NEGATIVE, Urine Cocaine Screen NEGATIVE, U Cannabinoids Screen NEGATIVE, Ur Drug Screen Comment Assessment & Plan Assessment/Plan (1) Dehydration: (2) Acidosis, lactic: PLAN: Plan # High anion gap metabolic acidosis -Suspect d/t elevated lactic acid of 3.9, possibly d/t dehydration given pts current increase in alcohol use -Serum acetone negative -IV fluids -Repeat BMP # Lightheadedness -Patient hypertensive in the ED on presentation, suspect patient also dehydrated -IV fluids -This is improving #Type 2 diabetes mellitus -Glucose checks and sliding scale insulin #Hypokalemia -Replace -Repeat as above # Alcohol abuse -Patient drinking liquor over the past 4 days, suspect this is the reason for his slight elevation in bili and liver function tests -EtOH of 6 in the ED -Thiamine folate -Advise cessation -Do not think patient needs phenobarbital detox at this time #GERD -Continue PPI #DVT ppx: SCDs Jenifer Cardenas MD Time spent in the patient's overall evaluation, decision-making process, review of diagnostic data, adjustment of management, discussion with other providers, nursing and ancillary staff involved in patient's care documentation, 56 Minutes Charges/Coding Visit Charges Inpatient E&M: 70424 Init Hosp L2
[2024-09-14 16:06] LABS: Anion Gap 22 (5-15); BUN 15 mg/dL (7-18); BUN/Creat Ratio 11.7 RATIO (10-20); Calcium,Total 10.6 mg/dL (8.5-10.1); Chloride 94 mmol/L (98-107); Creatinine, Serum 1.28 mg/dL (0.70-1.30); EST Glomerular Filtration Rate 64 mL/min (>60); Est Glom Filt Rate - Afr Amer 77 mL/min (>60); Estimated Creatinine Clearance 84.44 ml/min; Glucose 209 mg/dL (74-106); Potassium 3.3 mmol/L (3.5-5.1); Sodium Level 133 mmol/L (136-145)
[2024-09-14 17:17] LABS: Reflex Lactate? Y
[2024-09-14 17:27] LABS: Bedside Glucose 148 mg/dL (74-106)
[2024-09-14] MEDS: Potassium Chloride Oral Tablet 20 MEQ 40 MEQ PO (17:37)
[2024-09-14] MEDS: 0.9% Normal Saline (1000mL) 1,000 ML 75 ML IV (17:39)
[2024-09-14 18:11] LABS: Lactic Acid 1.3 mmol/L (0.4-1.9)
[2024-09-15 03:00] VITALS: BP 130/81; PULSE 67; RESP 18; TEMP 36.2; O2SAT 99
[2024-09-15 05:55] LABS: Absolute Lymphocyte Count 1.12 X10^3/uL (0.83-4.51); Basophil# 0.05 X10^3/uL; Basophil% 0.9 % (0-1); Eosinophil# 0.02 X10^3/uL; Eosinophils% 0.3 % (0-5); Hematocrit 44.6 % (40-54); Hemoglobin 14.2 g/dL (13.0-16.5); Lymphocyte # 1.12 X10^3/ul (0.83-4.51); Lymphocyte % 19.5 % (19-41); Mean Corp Hgb Conc 31.8 g/dL (32-36); Mean Corpuscular Hgb 24.5 pg (27.0-32.0); Mean Corpuscular Volume 76.9 fL (80-94); Mean Platelet Vol. 8.9 fl (6.2-12.0); Monocyte# 0.55 X10^3/uL; Monocyte% 9.6 % (0-10); NRBC Flagged by Analyzer 0 % (0-5); Neutrophil # 3.98 X10^3/uL (2.7-7.7); Neutrophil % 69.2 % (47-70); Platelet Count 168 K/mm3 (150-450); RBC Distribution Width CV 18.2 % (11.6-14.6); RBC Distribution Width SD 47.6 fl (35.1-43.9); White Blood Count 5.8 K/mm3 (4.4-11.0)
[2024-09-15 06:47] LABS: ALB/GLOB Ratio 0.9 RATIO (0.9-2.4); AST(SGOT) 71 U/L (15-37); Alanine Aminotransfer ALT/SGPT 86 U/L (16-61); Albumin, Serum 3.7 g/dL (3.2-5.0); Alkaline Phosphatase 63 U/L (45-117); Anion Gap 9 (5-15); BUN 11 mg/dL (7-18); BUN/Creat Ratio 10.5 RATIO (10-20); Calcium,Total 9.3 mg/dL (8.5-10.1); Chloride 102 mmol/L (98-107); Creatinine, Serum 1.05 mg/dL (0.70-1.30); EST Glomerular Filtration Rate 80 mL/min (>60); Est Glom Filt Rate - Afr Amer 97 mL/min (>60); Estimated Creatinine Clearance 102.94 ml/min; Globulin 4.1 g/dL (2.2-4.2); Glucose 125 mg/dL (74-106); International Normalized Ratio 0.9; Magnesium 1.6 mg/dL (1.6-2.6); Potassium 3.6 mmol/L (3.5-5.1); Protein, Total 7.8 g/dL (6.4-8.2); Prothrombin Time (Protime)PT. 12.8 SECONDS (11.7-14.9); Sodium Level 137 mmol/L (136-145)
[2024-09-15 06:52] LABS: Bedside Glucose 123 mg/dL (74-106)
[2024-09-15] MEDS: Folic Acid 1 MG Tablet PO (08:46)
[2024-09-15] MEDS: Thiamine Hydrochloride 100 MG Tablet PO (08:46)
--- NOTE | 2024-09-15 08:59 | PCM.PN.HOSP ---
Reason for Visit Reason for Visit: Diagnoses Dehydration (09/14/24) Acidosis, unspecified (09/14/24) Subjective Subjective Feels much better. HR has been elevated in low 100s, up to 120-130s with activity. Objective Data Objective Data Vital Signs: Vital Signs Temp Pulse Resp BP Pulse Ox O2 Del Method 36.2 C L 67 18 130/81 H 99 Room Air 09/15/24 03:00 09/15/24 03:00 09/15/24 03:00 09/15/24 03:00 09/15/24 03:00 09/15/24 03:00 Oxygen Delivery Method Room Air Weight: 99.7 kg Body Mass Index (BMI) 31.5 Intake & Output: Intake and Output for Last 24 Hours 09/13/24 09/14/24 09/15/24 23:59 23:59 23:59 Intake Total 2240 / 2240 1000 / 1000 Balance 2240 / 2240 1000 / 1000 Lab / Micro Data 09/15/24 05:24 09/15/24 05:24 Labs: Laboratory Results - last 24 hr 09/14/24 10:59: WBC 8.8, RBC 5.96, Hgb 14.5, Hct 44.9, MCV 75.3 L, MCH 24.3 L, MCHC 32.3, RDW Std Deviation 44.9 H, RDW Coeff of Kelsy 17.8 H, Plt Count 219, MPV 8.9, Immature Gran % (Auto) 0.200, Neut % (Auto) 85.9 H, Lymph % (Auto) 6.9 L, [place] % (Auto) 5.0, Eos % (Auto) 0.8, Baso % (Auto) 1.2 H, Absolute Neuts (auto) 7.6, Absolute Lymphs (auto) 0.61 L, Nucleated RBC % 0, Sodium 133 L 09/14/24 10:59: Sodium 133 L, Potassium 3.2 L 09/14/24 10:59: Potassium 3.3 L, Chloride 94 L 09/14/24 10:59: Chloride 94 L, Carbon Dioxide 17.0 L 09/14/24 10:59: Carbon Dioxide 16.0 L, Anion Gap 22 H 09/14/24 10:59: Anion Gap 22 H, BUN 15 09/14/24 10:59: BUN 15, Creatinine 1.22 09/14/24 10:59: Creatinine 1.28, Estim Creat Clear Calc 89.13 09/14/24 10:59: Estim Creat Clear Calc 84.44, Est GFR (MDRD) Af Amer 82 09/14/24 10:59: Est GFR (MDRD) Af Amer 77, Est GFR (MDRD) Non-Af 68 09/14/24 10:59: Est GFR (MDRD) Non-Af 64, BUN/Creatinine Ratio 12.3 09/14/24 10:59: BUN/Creatinine Ratio 11.7, Glucose 215 H 09/14/24 10:59: Glucose 209 H, Calcium 10.3 H 09/14/24 10:59: Calcium 10.6 H, Total Bilirubin 1.40 H, AST 55 H, ALT 90 H, Alkaline Phosphatase 74, Total Protein 8.7 H, Albumin 4.4, Globulin 4.3 H, Albumin/Globulin Ratio 1.0, Lipase 35, Ethyl Alcohol 6.0, Acetone Level NEGATIVE 09/14/24 13:15: Lactic Acid 3.9 H* 09/14/24 13:31: Urine Color Yellow, Urine Clarity Clear, Urine pH 6.0, Ur Specific [place] 1.025, Urine Protein 30 H, Urine Glucose (UA) 250 H, Urine Ketones 150 A*, Urine Occult Blood Negative, Urine Nitrite Negative, Urine Bilirubin Negative, Urine Urobilinogen Normal, Ur Leukocyte Esterase Negative, Urine RBC 0 SEEN, Urine WBC 0 SEEN, Ur Squamous Epith Cells 0 SEEN, Urine Bacteria 0 SEEN, Fine Granular Casts 0-5 SEEN, Urine Mucus 0 SEEN, Urine Opiates Screen NEGATIVE, Urine Methadone Screen NEGATIVE, Ur Barbiturates Screen NEGATIVE, Ur Phencyclidine Scrn NEGATIVE, Ur Amphetamines Screen NEGATIVE, MDMA (Ecstasy) Screen NEGATIVE, U Benzodiazepines Scrn NEGATIVE, Urine Cocaine Screen NEGATIVE, U Cannabinoids Screen NEGATIVE, Ur Drug Screen Comment 09/14/24 17:02: POC Glucose 148 H 09/14/24 17:30: Lactic Acid 1.3 09/15/24 05:24: WBC 5.8, RBC 5.80, Hgb 14.2, Hct 44.6, MCV 76.9 L, MCH 24.5 L, MCHC 31.8 L, RDW Std Deviation 47.6 H, RDW Coeff of Kelsy 18.2 H, Plt Count 168, MPV 8.9, Immature Gran % (Auto) 0.500, Neut % (Auto) 69.2, Lymph % (Auto) 19.5, [place] % (Auto) 9.6, Eos % (Auto) 0.3, Baso % (Auto) 0.9, Absolute Neuts (auto) 4.0, Absolute Lymphs (auto) 1.12, Nucleated RBC % 0, PT 12.8, INR 0.9, Sodium 137, Potassium 3.6, Chloride 102, Carbon Dioxide 26.0, Anion Gap 9, BUN 11, Creatinine 1.05, Estim Creat Clear Calc 102.94, Est GFR (MDRD) Af Amer 97, Est GFR (MDRD) Non-Af 80, BUN/Creatinine Ratio 10.5, Glucose 125 H, Calcium 9.3, Magnesium 1.6, Total Bilirubin 1.50 H, AST 71 H, ALT 86 H, Alkaline Phosphatase 63, Total Protein 7.8, Albumin 3.7, Globulin 4.1, Albumin/Globulin Ratio 0.9, TSH 1.870 09/15/24 06:32: POC Glucose 123 H Physical Exam Const alert and no apparent distress HEENT head/scalp atraumatic and moist oral mucous membranes Resp normal respiratory effort, no retractions, no use of accessory muscles and clear to auscultation bilaterally Cardio regular rate, regular rhythm, S1 normal heart sound and S2 normal heart sound GI normal to inspection, nondistended, normoactive bowel sounds, soft to palpation, non-tender and non-distended Assessment & Plan Assessment/Plan (1) Dehydration: (2) Acidosis, lactic: PLAN: Plan High anion gap metabolic acidosis Suspect 2/2 dehydration from excessive hard alcohol over 4 days, followed by intractable vomiting. Improved with IVF. Tachycardia probably reactive from above, anticipate improvement. Advised follow up with PCP. Recommended consider smart watch that monitors HR. Hypokalemia: improved Alcohol abuse Patient drinking liquor over the past 4 days, suspect this is the reason for his slight elevation in bili and liver function tests-EtOH of 6 in the ED-Thiamine folate-Advise cessation-Do not think patient needs phenobarbital detox at this time Chronic conditoins: GERD-Continue PPI DM2-SSI HTN: takes amlodipine and losartan. Reported history of angioedema with lisinopril and was changed to losartan. I discussed with the patient that losartan can also cause angioedema and I recommended discontinuation. Follow up with PCP. Also suggested getting a home sphygmomanometer to check his BP at home. DVT ppx: SCDs
[2024-09-15 09:00] VITALS: BP 134/86; PULSE 72; RESP 16; TEMP 36.3; O2SAT 98
[2024-09-15 09:33] VITALS: O2SAT 99
[2024-09-15] MEDS: 0.9% Normal Saline (1000mL) 1,000 ML 500 ML IV (11:13)
[2024-09-15] MEDS: Insulin Lispro 100 UNIT/ML INSULN.PEN SC (11:13)
[2024-09-15 11:40] LABS: Bedside Glucose 248 mg/dL (74-106)
[2024-09-15 13:53] VITALS: O2SAT 98
[2024-09-15 14:41] VITALS: BP 130/78; PULSE 88; RESP 18; TEMP 36.6; O2SAT 97
--- NOTE | 2024-09-15 14:54 | DS.PCM_ITS ---
Providers Date of Admission: 09/14/24 Primary Care Physician: Dr. Jerrod Mcgregor MD Reason For Visit: LACTIC ACIDOSIS, DEHYDRATION, LIGHT HEADEDNESS Diagnosis Discharge Diagnosis (1) Dehydration: Status: Acute Code(s): E86.0 - Dehydration (2) Acidosis, lactic: Status: Acute Code(s): E87.20 - Acidosis, unspecified Plan High anion gap metabolic acidosis * Suspect 2/2 dehydration from excessive hard alcohol over 4 days, followed by intractable vomiting. * Improved with IVF. Tachycardia * probably reactive from above, anticipate improvement. Advised follow up with PCP. Recommended consider smart watch that monitors HR. Hypokalemia: * improved Alcohol abuse * Patient drinking liquor over the past 4 days, suspect this is the reason for his slight elevation in bili and liver function tests-EtOH of 6 in the ED- Thiamine folate-Advise cessation-Do not think patient needs phenobarbital detox at this time Chronic conditoins: * GERD-Continue PPI * DM2-SSI * HTN: takes amlodipine and losartan. Reported history of angioedema with lisinopril and was changed to losartan. I discussed with the patient that losartan can also cause angioedema and I recommended discontinuation. Follow up with PCP. Also suggested getting a home sphygmomanometer to check his BP at home. DVT ppx: SCDs Medications at Discharge Home Medications amlodipine 5 mg tablet 5 mg PO DAILY 11/15/21 omeprazole 20 mg capsule,delayed release 20 mg PO BID 11/15/21 Hospital Course Operations None Procedures None Summary of Care Provided Minutes Spent on Discharge: 40 Hospital Course: Patient came in feeling very ill. He had acute high anion gap metabolic acidosis. Patient prior to this had been on a 4-day spree of heavy alcohol use with liquors. Patient normally drinks beer 2 night sews more alcohol than he typically does needed over stretch of 3 to 4 days followed by severe vomiting and decreased oral intake. So he had high anion gap as well. Patient received IV fluids and on the following day he was feeling much better. Does noted that he was very tachycardic. He is sinus rhythm NEB in the low 100s and jump up to 120s to 130s with activity. Patient received additional IV fluids and his tachycardia did improve. Patient otherwise feels well. He recognizes that he cannot drink amount of alcohol in the future. I suggested patient get a smart watch with a heart rate monitor to see if he is tachycardic more frequently as it may lead him to having additional testing and also to get a home sphygmomanometer to check his blood pressure at home. Advise any wait 5 minutes after he sits down to check his blood pressure. Weight / BMI Weight Weight: 99.7 kg Body Mass Index (BMI) 31.5 ABG / Lab / Microbiology Data 09/15/24 05:24 09/15/24 05:24 Laboratory: Laboratory Results - last 24 hr 09/14/24 10:59: Sodium 133 L, Potassium 3.3 L, Chloride 94 L, Carbon Dioxide 16.0 L, Anion Gap 22 H, BUN 15, Creatinine 1.28, Estim Creat Clear Calc 84.44, Est GFR (MDRD) Af Amer 77, Est GFR (MDRD) Non-Af 64, BUN/Creatinine Ratio 11.7, Glucose 209 H, Calcium 10.6 H 09/14/24 17:02: POC Glucose 148 H 09/14/24 17:30: Lactic Acid 1.3 09/15/24 05:24: WBC 5.8, RBC 5.80, Hgb 14.2, Hct 44.6, MCV 76.9 L, MCH 24.5 L, M CHC 31.8 L, RDW Std Deviation 47.6 H, RDW Coeff of Kelsy 18.2 H, Plt Count 168, MPV 8.9, Immature Gran % (Auto) 0.500, Neut % (Auto) 69.2, Lymph % (Auto) 19.5, [place] % (Auto) 9.6, Eos % (Auto) 0.3, Baso % (Auto) 0.9, Absolute Neuts (auto) 4.0, Absolute Lymphs (auto) 1.12, Nucleated RBC % 0, PT 12.8, INR 0.9, Sodium 137, Potassium 3.6, Chloride 102, Carbon Dioxide 26.0, Anion Gap 9, BUN 11, Creatinine 1.05, Estim Creat Clear Calc 102.94, Est GFR (MDRD) Af Amer 97, Est GFR (MDRD) Non-Af 80, BUN/Creatinine Ratio 10.5, Glucose 125 H, Calcium 9.3, Magnesium 1.6, Total Bilirubin 1.50 H, AST 71 H, ALT 86 H, Alkaline Phosphatase 63, Total Protein 7.8, Albumin 3.7, Globulin 4.1, Albumin/Globulin Ratio 0.9, TSH 1.870 09/15/24 06:32: POC Glucose 123 H 09/15/24 11:07: POC Glucose 248 H D/C Instructions Discharge Diet: No restrictions (Alcohol in moderation) Return to work on: 09/16/24 (You were hospitalized from February 12 to September 15, 2024. You may return to work on September 16, 2024 with no restrictions.) DC O2, CPAP, BIPAP Needs Home O2 Discharge instructions: No Meaningful Use Info Meaningful Use Meaningful Use Diagnoses (Choose all that apply): None applicable Ischemic Stroke Statin Dosing Therapy Reference: STATIN DOSE THERAPY REFERENCE: * Patients > 75 years receive moderate or high dose statin therapy. * Patients 75 years or YOUNGER should receive HIGH intensity statin dose unless contraindicated. You will be required to document reason for non-treatment if statin daily dose does not meet guidelines. HIGH DOSE STATIN THERAPY DAILY Atorvastatin > than or = to 40 mg Rosuvastatin > than or = to 20 mg Amlodipine + Atorvastatin > than or = to 2.5/40 mg Ezetimibe + Simvastatin 10/80 mg Simvastatin 80mg Discharge Plan Admission Admit Date/Time: 09/14/24 15:04 Primary Reason for Your Visit: Severe dehydration Attending Provider: Fabian Jaime Primary Care Provider: Jerrod Mcgregor Consulting Providers: Jenifer Cardenas Instructions Additional Instructions / Restrictions: You are severely dehydrated from your recent excess quantity of alcohol and then followed by severe vomiting. Responded with IV fluids. No additional workup for that at this time. Was noted that your heart rate was fast and this may have been related with just recovery from this bout. You may consider getting a smart watch with a heart rate monitor to see if you have issues or you can check your pulse just manually. Normal heart rates from 60-100. Also as we discussed because of your history of angioedema I do not recommend that you take losartan anymore. Because of your history of angioedema (swelling of the lips tongue, etc.) with lisinopril that can also occur with losartan. Please follow with your primary care doctor for your blood pressure management to see if additional agents would be necessary beyond the amlodipine. We can also check your blood pressure at home if you do get a blood pressure cuff. We do check her blood pressure at home just be sure that you are seated for 5 minutes and at rest before checking her blood pressure. Discharge Orders/Prescriptions Prescriptions: Continued amlodipine 5 mg tablet 5 mg PO DAILY omeprazole 20 mg capsule,delayed release(DR/EC) 20 mg PO BID Discontinued losartan 50 mg tablet 50 mg PO DAILY Referrals / Follow Up: Jerrod Mcgregor MD [Primary Care Provider] - Within 2 Weeks Disposition Disposition (needs filled in before D/C Order can be placed): Home, Self Care Charges/Coding Visit Charges Inpatient E&M: 96598 Disch Hosp >30min
[2024-09-15 15:23] VITALS: BP 134/78; PULSE 88; RESP 14; TEMP 36.6; O2SAT 97
--- NOTE | 2024-09-15 15:36 | CASEMGMT ---
Patient has order for discharge. RN CM in to discuss needs at discharge. Patient denies needs or help at discharge. Patient had no further questions or concerns.
== END 2024-09-15 15:42 | disposition home or self-care (01) ==
LOC: ED 15:03 → PCU 15:11
PROVIDERS: Admitting Provider Internal Medicine; Emergency Provider Emergency Medicine; PCP Family Medicine
DX: E87.20 Acidosis, unspecified (principal); E11.9 Type 2 diabetes mellitus without complications; E86.0 Dehydration; I10 Essential (primary) hypertension; R42 Dizziness and giddiness; K21.9 Gastro-esophageal reflux disease without esophagitis; Z87.891 Personal history of nicotine dependence; E87.6 Hypokalemia; R06.02 Shortness of breath; Z79.899 Other long term (current) drug therapy; F10.10 Alcohol abuse, uncomplicated; Y90.0 Blood alcohol level of less than 20 mg/100 ml
CPT/HCPCS: 36415; 80048; 80053; 80307; 81001; 82009; 82077; 82962; 83605; 83690; 83735; 84443; 85025; 85610; 96361; 96374; 99221; 99284; G0378; J2405